=== PATIENT | male | born 1975 | race Two or more races ===

== ENCOUNTER 2020-08-18 13:35 | Inpatient (IN) | payer MEDICAID, OTHER ==
[~2020-08-18] VITALS: Ht 175.3 cm; Wt 104.3 kg
[2020-08-18 14:17] LABS: Urine Bacteria NONE SEEN /hpf (None Seen); Urine Blood Negative /uL (Negative); Urine Specific Gravity 1.035 (1.001-1.035); Urine WBC <1 /hpf (0 - 3)
[2020-08-18 14:47] LABS: Basophils # (auto) 0 10 ^3/uL (0-0.2); Basophils % (auto) 0.5 % (0.0-2.0); Eosinophils # (auto) 0.1 10 ^3/uL (0-0.8); Eosinophils % (auto) 0.8 % (0.0-7.0); Hematocrit 41.2 % (41.0-53.0); Hemoglobin 14.4 g/dL (13.5-17.5); Lymphocytes # (auto) 1.5 10 ^3/uL (0.4-5.4); Lymphocytes % (auto) 21.8 % (10.0-50.0); Mean Corpuscular Hgb Conc. 34.9 g/dL (32.0-36.0); Mean Corpuscular Volume 86.1 fL (80.0-100.0); Monocytes # (auto) 0.5 10 ^3/uL (0-1.3); Monocytes % (auto) 7.1 % (0.0-12.0); Neutrophils # (auto) 4.7 10 ^3/uL (1.6-8.6); Neutrophils % (auto) 69.8 % (37.0-80.0); Nucleated Red Blood Cells % 0.1 %; Platelet Count (auto) 160 10^3/uL (140-450); Red Blood Cells 4.79 10^6/uL (4.5-5.90); Red Cell Distribution Width 14.4 % (11.8-14.3); White Blood Cell 6.8 10^3/uL (4.4-10.8)
[2020-08-18 15:09] LABS: INR 1.02 (0.9-1.15); Partial Thromboplastin Time 25.6 sec (23.0-31.2)
[2020-08-18 15:21] LABS: Albumin 3.4 g/dL (3.4-5.0); Anion Gap 7 (5-15); Blood Urea Nitrogen 9 mg/dL (7-18); Calcium 8.5 mg/dL (8.5-10.1); Carbon Dioxide 26 mmol/L (21-32); Chloride 103 mmol/L (98-107); Glucose 318 mg/dL (74-106); Potassium 4.1 mmol/L (3.5-5.1); Sodium 136 mmol/L (136-145)
[2020-08-18 15:27] LABS: Alanine Aminotransferase 35 U/L (16-61); Alkaline Phosphatase 180 U/L (45-117); Aspartate Aminotransferase 11 U/L (15-37); BUN/Creatinine Ratio 11.7; Bilirubin, Total 0.6 mg/dL (0.2-1.0); GFR African American 141 mL/min; GFR Non-African American 117 mL/min; Total Protein 7.7 g/dL (6.4-8.2)
[2020-08-18] MEDS ORDERED: NITROGLYCERIN 0.4 MG SL TAB SL PRN (21:00)
[2020-08-18] MEDS ORDERED: DEXTROSE (50%) 50ML SYRG IV PRN (21:00)
[2020-08-18] MEDS ORDERED: ONDANSETRON HCL 4 MG/2 ML VIAL IV PRN (21:00)
[2020-08-18] MEDS ORDERED: TEMAZEPAM 15 MG CAP PO PRN (21:00)
[2020-08-18] MEDS ORDERED: ACETAMINOPHEN 325 MG TAB PO PRN (21:00)
[2020-08-18 21:30] LABS: Magnesium 2.1 mg/dL (1.6-2.6)
[2020-08-18] MEDS ORDERED: TICAGRELOR 90 MG TAB PO SCH (22:00)
[2020-08-18] MEDS ORDERED: FAMOTIDINE 20 MG TAB PO SCH (22:00)
[2020-08-18] MEDS ORDERED: InsuLIN REG 1unit/0.01ml Soln (100units/ml) SC SCH (22:00)
[2020-08-18] MEDS ORDERED: ACCU-CHEK COMFORT CURVE STRIP VI SCH (22:00)
[2020-08-18] MEDS ORDERED: ATORVASTATIN 20 MG TAB PO SCH (22:00)
[2020-08-19 01:30] VITALS: BP 129/76
[2020-08-19] MEDS: MORPHINE SULF INJ 2 MG/ML SYRINGE 1ML IV PRN ×2 (01:48→04:38)
[2020-08-19 04:00] VITALS: BP 135/82
[2020-08-19] MEDS ORDERED: ASPirin 81 mg TAB PO SCH (10:00)
[2020-08-19] MEDS ORDERED: LISINOPRIL 20 MG TAB PO SCH (10:00)
== END 2020-08-19 07:00 | disposition left against medical advice (07) | DRG 204 ==
LOC: ER 13:35 → TELE 13:36
PROVIDERS: ADMIT Nurse Practitioner; ATTEND Internal Medicine
DX: R55 Syncope and collapse (principal); I25.110 Atherosclerotic heart disease of native coronary artery with unstable angina pectoris; G45.9 Transient cerebral ischemic attack, unspecified; E11.22 Type 2 diabetes mellitus with diabetic chronic kidney disease; E66.9 Obesity, unspecified; Z68.34 Body mass index [BMI] 34.0-34.9, adult; E78.5 Hyperlipidemia, unspecified; I12.9 Hypertensive chronic kidney disease with stage 1 through stage 4 chronic kidney disease, or unspecified chronic kidney disease; N18.9 Chronic kidney disease, unspecified; Z82.49 Family history of ischemic heart disease and other diseases of the circulatory system; Z83.3 Family history of diabetes mellitus; Z86.73 Personal history of transient ischemic attack (TIA), and cerebral infarction without residual deficits; Z95.1 Presence of aortocoronary bypass graft; Z87.891 Personal history of nicotine dependence
CPT/HCPCS: 36415; 70450; 71045; 80053; 81001; 82962; 83735; 83880; 84443; 84484; 85025; 85610; 85730; 93005; 93886; 96374; 96375; G0378; J1815; J2405

== ENCOUNTER 2020-10-22 13:48 | Emergency (ER) | payer MEDICAID ==
[~2020-10-22] VITALS: Ht 175.3 cm; Wt 104.3 kg
[2020-10-22] MEDS ORDERED: ASPirin 81 mg TAB PO ONE (14:00)
[2020-10-22 14:18] LABS: Basophils # (auto) 0.1 10 ^3/uL (0-0.2); Basophils % (auto) 0.9 % (0.0-2.0); Eosinophils # (auto) 0 10 ^3/uL (0-0.8); Eosinophils % (auto) 0.3 % (0.0-7.0); Hematocrit 43.5 % (41.0-53.0); Hemoglobin 14.9 g/dL (13.5-17.5); Lymphocytes # (auto) 1.7 10 ^3/uL (0.4-5.4); Lymphocytes % (auto) 19.6 % (10.0-50.0); Mean Corpuscular Hemoglobin 29.9 pg (28.0-32.0); Mean Corpuscular Hgb Conc. 34.4 g/dL (32.0-36.0); Mean Corpuscular Volume 86.9 fL (80.0-100.0); Monocytes # (auto) 0.5 10 ^3/uL (0-1.3); Monocytes % (auto) 5.9 % (0.0-12.0); Neutrophils # (auto) 6.5 10 ^3/uL (1.6-8.6); Neutrophils % (auto) 73.3 % (37.0-80.0); Nucleated Red Blood Cells % 0.1 %; Platelet Count (auto) 163 10^3/uL (140-450); Red Cell Distribution Width 15.1 % (11.8-14.3); White Blood Cell 8.8 10^3/uL (4.4-10.8)
[2020-10-22 14:35] LABS: Albumin 3.6 g/dL (3.4-5.0); Anion Gap 7 (5-15); Blood Urea Nitrogen 8 mg/dL (7-18); Carbon Dioxide 24 mmol/L (21-32); Chloride 105 mmol/L (98-107); Glucose 346 mg/dL (74-106); Magnesium 2.1 mg/dL (1.6-2.6); Potassium 3.8 mmol/L (3.5-5.1); Sodium 136 mmol/L (136-145)
[2020-10-22 14:42] LABS: Alanine Aminotransferase 44 U/L (16-61); Alkaline Phosphatase 162 U/L (45-117); Aspartate Aminotransferase 20 U/L (15-37); BUN/Creatinine Ratio 10.7; Bilirubin, Total 0.8 mg/dL (0.2-1.0); GFR African American 145 mL/min; GFR Non-African American 120 mL/min
[2020-10-22] MEDS ORDERED: KETOROLAC TROMETH 30 MG/ML 1ML VIAL IV ONE (14:45)
[2020-10-22 16:00] VITALS: BP 129/89
[2020-10-22] MEDS ORDERED: ONDANSETRON HCL 4 MG/2 ML VIAL IV ONE (16:15)
== END 2020-10-22 17:26 | disposition left against medical advice (07) ==
LOC: ER 13:48
DX: J18.9 Pneumonia, unspecified organism (principal); E11.65 Type 2 diabetes mellitus with hyperglycemia; E78.5 Hyperlipidemia, unspecified; E11.22 Type 2 diabetes mellitus with diabetic chronic kidney disease; I12.9 Hypertensive chronic kidney disease with stage 1 through stage 4 chronic kidney disease, or unspecified chronic kidney disease; N18.9 Chronic kidney disease, unspecified; Z87.891 Personal history of nicotine dependence; Z86.73 Personal history of transient ischemic attack (TIA), and cerebral infarction without residual deficits; Z95.1 Presence of aortocoronary bypass graft
CPT/HCPCS: 36415; 71045; 80053; 83735; 83880; 84484; 85025; 93005; 96374; 96375; 99285; J1885; J2405

== ENCOUNTER 2020-10-24 00:11 | Inpatient (IN) | payer MEDICAID ==
[~2020-10-24] VITALS: Ht 175.3 cm; Wt 110.0 kg
[2020-10-24] MEDS ORDERED: ONDANSETRON HCL 4 MG/2 ML VIAL IV ONE ×2 (01:15→02:45)
[2020-10-24] MEDS ORDERED: MORPHINE SULFATE 4 MG/ML SYR/VIAL IV ONE (01:15)
[2020-10-24 01:36] LABS: Basophils # (auto) 0 10 ^3/uL (0-0.2); Basophils % (auto) 0.2 % (0.0-2.0); Eosinophils # (auto) 0.1 10 ^3/uL (0-0.8); Eosinophils % (auto) 0.7 % (0.0-7.0); Hematocrit 41.3 % (41.0-53.0); Hemoglobin 14.2 g/dL (13.5-17.5); Lymphocytes # (auto) 2.5 10 ^3/uL (0.4-5.4); Lymphocytes % (auto) 30.8 % (10.0-50.0); Mean Corpuscular Hemoglobin 30.3 pg (28.0-32.0); Mean Corpuscular Hgb Conc. 34.4 g/dL (32.0-36.0); Monocytes # (auto) 0.5 10 ^3/uL (0-1.3); Monocytes % (auto) 6.4 % (0.0-12.0); Neutrophils % (auto) 61.9 % (37.0-80.0); Nucleated Red Blood Cells % 0.2 %; Platelet Count (auto) 143 10^3/uL (140-450); Red Cell Distribution Width 15.2 % (11.8-14.3); White Blood Cell 8.1 10^3/uL (4.4-10.8)
[2020-10-24] MEDS ORDERED: InsuLIN REG 1unit/0.01ml Soln (100units/ml) IV ONE (01:45)
[2020-10-24 01:47] LABS: Partial Thromboplastin Time 24.2 sec (23.0-31.2)
[2020-10-24 01:54] LABS: Alanine Aminotransferase 41 U/L (16-61); Albumin 3.6 g/dL (3.4-5.0); Anion Gap 11 (5-15); Aspartate Aminotransferase 19 U/L (15-37); BUN/Creatinine Ratio 11.5; Blood Urea Nitrogen 9 mg/dL (7-18); Calcium 8.3 mg/dL (8.5-10.1); Carbon Dioxide 23 mmol/L (21-32); Chloride 101 mmol/L (98-107); GFR African American 139 mL/min; GFR Non-African American 115 mL/min; Magnesium 2.1 mg/dL (1.6-2.6); Potassium 3.9 mmol/L (3.5-5.1); Sodium 135 mmol/L (136-145)
[2020-10-24 02:03] LABS: Alkaline Phosphatase 194 U/L (45-117); Bilirubin, Total 0.4 mg/dL (0.2-1.0); Total Protein 7.7 g/dL (6.4-8.2)
[2020-10-24 02:09] LABS: Glucose 438 mg/dL (74-106)
[2020-10-24] MEDS ORDERED: MORPHINE SULF INJ 2 MG/ML SYRINGE 1ML IV ONE (02:45)
[2020-10-24] MEDS ORDERED: hydrALAZINE HCL 20 MG/ML VL IV PRN (05:00)
[2020-10-24] MEDS ORDERED: DEXTROSE (50%) 50ML SYRG IV PRN (05:00)
[2020-10-24] MEDS ORDERED: ACETAMINOPHEN 325 MG TAB PO PRN (05:15)
[2020-10-24] MEDS ORDERED: NITROGLYCERIN 0.4 MG SL TAB SL PRN (05:15)
[2020-10-24] MEDS ORDERED: DOCUSATE SOD 100 MG CAP PO PRN (05:15)
[2020-10-24] MEDS: GABAPENTIN 300 MG CAP PO SCH ×3 (05:37→21:50)
[2020-10-24] MEDS: HYDROcodone-ACET 5/325MG TAB PO PRN ×4 (05:53→21:52)
[2020-10-24 06:19] LABS: Basophils # (auto) 0.1 10 ^3/uL (0-0.2); Basophils % (auto) 0.7 % (0.0-2.0); Eosinophils # (auto) 0.1 10 ^3/uL (0-0.8); Eosinophils % (auto) 0.8 % (0.0-7.0); Hematocrit 40.7 % (41.0-53.0); Hemoglobin 14.1 g/dL (13.5-17.5); Lymphocytes # (auto) 2.6 10 ^3/uL (0.4-5.4); Lymphocytes % (auto) 31.5 % (10.0-50.0); Mean Corpuscular Hgb Conc. 34.6 g/dL (32.0-36.0); Mean Corpuscular Volume 86.9 fL (80.0-100.0); Monocytes # (auto) 0.6 10 ^3/uL (0-1.3); Monocytes % (auto) 7.5 % (0.0-12.0); Neutrophils % (auto) 59.5 % (37.0-80.0); Nucleated Red Blood Cells % 0.1 %; Platelet Count (auto) 132 10^3/uL (140-450); Red Blood Cells 4.69 10^6/uL (4.5-5.90); White Blood Cell 8.4 10^3/uL (4.4-10.8)
[2020-10-24 06:27] LABS: Alanine Aminotransferase 39 U/L (16-61); Albumin 3.4 g/dL (3.4-5.0); Anion Gap 10 (5-15); Aspartate Aminotransferase 15 U/L (15-37); Blood Urea Nitrogen 7 mg/dL (7-18); Carbon Dioxide 22 mmol/L (21-32); Chloride 105 mmol/L (98-107); GFR African American 158 mL/min; GFR Non-African American 130 mL/min; Glucose 358 mg/dL (74-106); Potassium 3.9 mmol/L (3.5-5.1); Sodium 137 mmol/L (136-145)
[2020-10-24 06:30] LABS: Alkaline Phosphatase 186 U/L (45-117); Bilirubin, Total 0.3 mg/dL (0.2-1.0); Total Protein 7.5 g/dL (6.4-8.2)
[2020-10-24] MEDS ORDERED: INSULIN LANTUS (GLARGINE) 1 /0.01ml (100units/ml) SC SCH (07:00)
[2020-10-24] MEDS: ACCU-CHEK COMFORT CURVE STRIP VI SCH ×4 (08:36→21:50)
[2020-10-24] MEDS: InsuLIN REG 1unit/0.01ml Soln (100units/ml) SC SCH ×4 (08:37→21:52)
[2020-10-24] MEDS: MORPHINE SULF INJ 2 MG/ML SYRINGE 1ML IV PRN ×2 (08:40→13:45)
[2020-10-24] MEDS: ONDANSETRON HCL 4 MG/2 ML VIAL IV PRN ×2 (08:41→13:45)
[2020-10-24] MEDS ORDERED: ZINC SULFATE 220mg CAP or TAB PO SCH (10:00)
[2020-10-24] MEDS ORDERED: METOPROLOL TARTRATE 50 MG TAB PO SCH (10:00)
[2020-10-24] MEDS ORDERED: ASCORBIC ACID 500 MG TAB PO SCH (10:00)
[2020-10-24] MEDS ORDERED: ASPirin 81 mg TAB PO SCH (10:00)
[2020-10-24] MEDS: ISOSORBIDE MONONITRATE ER 60 MG TAB PO SCH (10:59)
[2020-10-24] MEDS: MULTIPLE VITAMIN TAB PO SCH (11:00)
[2020-10-24] MEDS: FAMOTIDINE 20 MG TAB PO SCH ×2 (11:00→21:50)
[2020-10-24] MEDS: ENOXAPARIN SOD 40 MG/0.4 ML SYRINGE SC SCH (11:01)
[2020-10-24] MEDS ORDERED: INSULIN LANTUS (GLARGINE) 1 /0.01ml (100units/ml) SC ONE (14:30)
[2020-10-24] MEDS: TICAGRELOR 90 MG TAB PO SCH ×2 (16:07→22:08)
[2020-10-24 17:00] VITALS: BP 111/65
[2020-10-24] MEDS: buPROPion HCL 75 MG TAB PO SCH (19:04)
[2020-10-24] MEDS: MORPHINE SULFATE 4 MG/ML SYR/VIAL IV PRN ×2 (19:04→23:16)
[2020-10-24 20:15] LABS: Alcohol, Urine < 3.0 mg/dL (0-10); Amphetamine Screen, Urine NEGATIVE (NEGATIVE); Barbiturate Scree,Urine NEGATIVE (NEGATIVE); Benzodiazephine Screen, Urine NEGATIVE (NEGATIVE); Cannabinoid Screen, Urine NEGATIVE (NEGATIVE); Cocaine Screen, Urine NEGATIVE (NEGATIVE); Opiate Scree,Urine NEGATIVE (NEGATIVE); Phencyclidine Screen, Urine NEGATIVE (NEGATIVE)
[2020-10-24] MEDS: INSULIN LANTUS (GLARGINE) 1 /0.01ml (100units/ml) SC SCH (21:50)
[2020-10-24] MEDS: busPIRone HCL 10 MG TAB PO SCH (21:50)
[2020-10-24 22:00] VITALS: BP 114/74
[2020-10-24] MEDS ORDERED: ATORVASTATIN 20 MG TAB PO SCH (22:00)
[2020-10-24] MEDS: METOPROLOL TARTRATE 50 MG TAB PO SCH (22:08)
[2020-10-24] MEDS ORDERED: ASPI-543 PO (23:22)
[2020-10-24] MEDS ORDERED: ATO40T PO (23:24)
[2020-10-24] MEDS ORDERED: BUPR150T8 PO (23:26)
[2020-10-24] MEDS ORDERED: BUSP10TA90 PO (23:29)
[2020-10-24] MEDS ORDERED: HYDR-4798 PO (23:29)
[2020-10-24] MEDS ORDERED: INSLANTI SC ×2 (23:37)
[2020-10-24] MEDS ORDERED: INSU1INJ15 SC (23:37)
[2020-10-24] MEDS ORDERED: ZOLP10TA PO (23:37)
[2020-10-24] MEDS ORDERED: TICA90TA PO (23:37)
[2020-10-24] MEDS ORDERED: METO25TA93 PO (23:37)
[2020-10-24] MEDS ORDERED: LISI-648 PO (23:37)
[2020-10-25 05:00] VITALS: BP 127/75
[2020-10-25] MEDS: MORPHINE SULFATE 4 MG/ML SYR/VIAL IV PRN ×2 (05:23→09:42)
[2020-10-25] MEDS: GABAPENTIN 300 MG CAP PO SCH ×2 (05:23→14:17)
[2020-10-25] MEDS: buPROPion HCL 75 MG TAB PO SCH ×2 (06:09→18:06)
[2020-10-25] MEDS: ONDANSETRON HCL 4 MG/2 ML VIAL IV PRN ×2 (06:09→11:39)
[2020-10-25] MEDS: INSULIN LANTUS (GLARGINE) 1 /0.01ml (100units/ml) SC SCH (06:10)
[2020-10-25] MEDS: ACCU-CHEK COMFORT CURVE STRIP VI SCH ×3 (06:10→18:06)
[2020-10-25] MEDS: InsuLIN REG 1unit/0.01ml Soln (100units/ml) SC SCH ×3 (06:11→18:07)
[2020-10-25] MEDS: HYDROcodone-ACET 5/325MG TAB PO PRN ×3 (06:47→16:51)
[2020-10-25 07:16] LABS: Basophils # (auto) 0 10 ^3/uL (0-0.2); Basophils % (auto) 0.2 % (0.0-2.0); Eosinophils # (auto) 0.1 10 ^3/uL (0-0.8); Eosinophils % (auto) 0.9 % (0.0-7.0); Hematocrit 39.4 % (41.0-53.0); Hemoglobin 13.7 g/dL (13.5-17.5); Lymphocytes % (auto) 27.6 % (10.0-50.0); Mean Corpuscular Hemoglobin 30.2 pg (28.0-32.0); Mean Corpuscular Hgb Conc. 34.6 g/dL (32.0-36.0); Mean Corpuscular Volume 87.2 fL (80.0-100.0); Monocytes # (auto) 0.6 10 ^3/uL (0-1.3); Neutrophils # (auto) 4.5 10 ^3/uL (1.6-8.6); Neutrophils % (auto) 63.3 % (37.0-80.0); Nucleated Red Blood Cells % 0.1 %; Platelet Count (auto) 135 10^3/uL (140-450); Red Blood Cells 4.52 10^6/uL (4.5-5.90); Red Cell Distribution Width 15.1 % (11.8-14.3); White Blood Cell 7.1 10^3/uL (4.4-10.8)
[2020-10-25 07:35] LABS: Albumin 3.1 g/dL (3.4-5.0); Potassium 3.6 mmol/L (3.5-5.1)
[2020-10-25 07:37] LABS: BUN/Creatinine Ratio 15.6
[2020-10-25 07:40] LABS: Bilirubin, Total 0.6 mg/dL (0.2-1.0); Total Protein 6.7 g/dL (6.4-8.2)
[2020-10-25] MEDS: busPIRone HCL 10 MG TAB PO SCH (09:58)
[2020-10-25] MEDS: MULTIPLE VITAMIN TAB PO SCH (09:59)
[2020-10-25] MEDS: FAMOTIDINE 20 MG TAB PO SCH (09:59)
[2020-10-25] MEDS: ISOSORBIDE MONONITRATE ER 60 MG TAB PO SCH (09:59)
[2020-10-25] MEDS ORDERED: LISINOPRIL 10 MG TAB PO SCH (10:00)
[2020-10-25] MEDS: METOPROLOL TARTRATE 50 MG TAB PO SCH (10:00)
[2020-10-25] MEDS ORDERED: ASPirin 81 mg TAB PO SCH (10:00)
[2020-10-25] MEDS: ENOXAPARIN SOD 40 MG/0.4 ML SYRINGE SC SCH (10:00)
[2020-10-25] MEDS: TICAGRELOR 90 MG TAB PO SCH (10:37)
[2020-10-25] MEDS ORDERED: INSU1INJ19 SC (11:34)
[2020-10-25] MEDS ORDERED: INSREG3 SC (11:34)
[2020-10-25] MEDS ORDERED: BUPR300T28 PO (11:34)
[2020-10-25] MEDS ORDERED: ATOR-47 PO (11:35)
[2020-10-25] MEDS ORDERED: MORPHINE SULF INJ 2 MG/ML SYRINGE 1ML IV PRN (11:45)
[2020-10-25 13:00] VITALS: BP 103/60
[2020-10-25 17:00] VITALS: BP 100/59
== END 2020-10-25 19:00 | disposition left against medical advice (07) | DRG 198 ==
LOC: ER 00:12 → TELE 00:13 → TELE-WESTW 16:52
PROVIDERS: ADMIT Nurse Practitioner Family; ATTEND Internal Medicine
DX: R07.89 Other chest pain (principal); E11.40 Type 2 diabetes mellitus with diabetic neuropathy, unspecified; E11.65 Type 2 diabetes mellitus with hyperglycemia; Z20.822 Contact with and (suspected) exposure to COVID-19; Z53.29 Procedure and treatment not carried out because of patient's decision for other reasons; E11.22 Type 2 diabetes mellitus with diabetic chronic kidney disease; E78.5 Hyperlipidemia, unspecified; N18.9 Chronic kidney disease, unspecified; F32.9 Major depressive disorder, single episode, unspecified; F41.9 Anxiety disorder, unspecified; I12.9 Hypertensive chronic kidney disease with stage 1 through stage 4 chronic kidney disease, or unspecified chronic kidney disease; I25.10 Atherosclerotic heart disease of native coronary artery without angina pectoris; I25.2 Old myocardial infarction; Z82.49 Family history of ischemic heart disease and other diseases of the circulatory system; Z83.3 Family history of diabetes mellitus; Z87.891 Personal history of nicotine dependence; Z95.1 Presence of aortocoronary bypass graft; Z95.5 Presence of coronary angioplasty implant and graft; Z91.14 Patient's other noncompliance with medication regimen; I69.30 Unspecified sequelae of cerebral infarction
CPT/HCPCS: 36415; 71045; 80053; 80307; 82962; 83036; 83735; 83880; 84484; 85025; 85610; 85730; 87081; 87426; 93005; 93306; 96372; 96374; 96375; 96376; G0378; J1815; J2405

== ENCOUNTER 2020-11-14 13:17 | Inpatient (IN) | payer MEDICAID ==
[~2020-11-14] VITALS: Ht 175.3 cm; Wt 106.8 kg
[~2020-11-14 13:17] MED LIST: ASPI-543 PO; ATOR-47 PO; BUPR300T28 PO; BUSP10TA90 PO; HYDR-4798 PO; INSREG3 SC; INSU1INJ19 SC; LISI-648 PO; METO25TA93 PO; TICA90TA PO; ZOLP10TA PO
[2020-11-14 14:16] LABS: Basophils # (auto) 0 10 ^3/uL (0-0.2); Basophils % (auto) 0.6 % (0.0-2.0); Eosinophils # (auto) 0 10 ^3/uL (0-0.8); Eosinophils % (auto) 0.6 % (0.0-7.0); Hematocrit 45.2 % (41.0-53.0); Hemoglobin 15.4 g/dL (13.5-17.5); Lymphocytes # (auto) 1.9 10 ^3/uL (0.4-5.4); Lymphocytes % (auto) 25.3 % (10.0-50.0); Mean Corpuscular Hemoglobin 30.1 pg (28.0-32.0); Mean Corpuscular Hgb Conc. 34.1 g/dL (32.0-36.0); Monocytes # (auto) 0.5 10 ^3/uL (0-1.3); Monocytes % (auto) 6.7 % (0.0-12.0); Neutrophils # (auto) 5.1 10 ^3/uL (1.6-8.6); Neutrophils % (auto) 66.8 % (37.0-80.0); Platelet Count (auto) 174 10^3/uL (140-450); Red Blood Cells 5.13 10^6/uL (4.5-5.90); Red Cell Distribution Width 14.5 % (11.8-14.3); White Blood Cell 7.6 10^3/uL (4.4-10.8)
[2020-11-14 14:30] LABS: Urine Bacteria NONE SEEN /hpf (None Seen); Urine Blood Negative /uL (Negative); Urine Specific Gravity 1.046 (1.001-1.035); Urine WBC 5 /hpf (0 - 3)
[2020-11-14] MEDS ORDERED: ASPirin-EC 81 mg tab PO ONE (14:30)
[2020-11-14] MEDS ORDERED: MORPHINE SULF INJ 2 MG/ML SYRINGE 1ML IV ONE ×2 (14:30→16:30)
[2020-11-14] MEDS ORDERED: ONDANSETRON HCL 4 MG/2 ML VIAL IV ONE ×2 (14:30→16:30)
[2020-11-14] MEDS ORDERED: cefTRIAXone 1GM/50ML D5W 50 ML IV ONE (14:30)
[2020-11-14 14:35] LABS: INR 1.03 (0.9-1.15); Partial Thromboplastin Time 25.6 sec (23.0-31.2)
[2020-11-14 15:03] LABS: Anion Gap 8 (5-15); Blood Urea Nitrogen 11 mg/dL (7-18); Calcium 8.9 mg/dL (8.5-10.1); Carbon Dioxide 26 mmol/L (21-32); Chloride 102 mmol/L (98-107); Glucose 307 mg/dL (74-106); Magnesium 2.2 mg/dL (1.6-2.6); Potassium 3.7 mmol/L (3.5-5.1); Sodium 136 mmol/L (136-145)
[2020-11-14 15:06] LABS: BUN/Creatinine Ratio 17.5; GFR African American 178 mL/min; GFR Non-African American 147 mL/min
[2020-11-14 15:14] LABS: Alanine Aminotransferase 60 U/L (16-61); Alkaline Phosphatase 170 U/L (45-117); Aspartate Aminotransferase 24 U/L (15-37); Bilirubin, Total 0.7 mg/dL (0.2-1.0); Total Protein 8.5 g/dL (6.4-8.2)
[2020-11-14] MEDS ORDERED: ALBUTEROL SULF 2.5 MG/0.5ML(0.5%) NEB SOLN NEB PRN (17:00)
[2020-11-14 18:31] VITALS: BP 145/90
[2020-11-14] MEDS ORDERED: NITROGLYCERIN 0.4 MG SL TAB SL PRN (21:15)
[2020-11-14] MEDS ORDERED: ONDANSETRON HCL 4 MG/2 ML VIAL IV PRN (21:15)
[2020-11-14] MEDS ORDERED: ACETAMINOPHEN 325 MG TAB PO PRN (21:15)
[2020-11-14] MEDS ORDERED: DEXTROSE (50%) 50ML SYRG IV PRN (21:15)
[2020-11-14] MEDS: MORPHINE SULF INJ 2 MG/ML SYRINGE 1ML IV PRN (21:26)
[2020-11-14] MEDS: busPIRone HCL 10 MG TAB PO SCH (23:06)
[2020-11-14] MEDS: ATORVASTATIN 20 MG TAB PO SCH (23:06)
[2020-11-14] MEDS: FAMOTIDINE 20 MG TAB PO SCH (23:06)
[2020-11-14] MEDS: TICAGRELOR 90 MG TAB PO SCH (23:06)
[2020-11-14 23:40] VITALS: BP 135/84
[2020-11-15] MEDS: InsuLIN REG 1unit/0.01ml Soln (100units/ml) SC SCH ×5 (00:16→23:01)
[2020-11-15] MEDS: ACCU-CHEK COMFORT CURVE STRIP VI SCH ×5 (00:16→23:00)
[2020-11-15] MEDS ORDERED: HYDROcodone-ACET 5/325MG TAB PO PRN (01:15)
[2020-11-15] MEDS: TEMAZEPAM 15 MG CAP PO PRN ×2 (01:21→22:52)
[2020-11-15] MEDS: MORPHINE SULF INJ 2 MG/ML SYRINGE 1ML IV PRN ×4 (01:55→20:00)
[2020-11-15] MEDS ORDERED: BUPR150T8 PO (03:06)
[2020-11-15] MEDS ORDERED: GABA300C10 PO (03:06)
[2020-11-15 05:13] VITALS: BP 123/71
[2020-11-15] MEDS: buPROPion HCL 75 MG TAB PO SCH ×2 (06:14→18:22)
[2020-11-15 08:26] LABS: Basophils # (auto) 0 10 ^3/uL (0-0.2); Basophils % (auto) 0.3 % (0.0-2.0); Eosinophils # (auto) 0.1 10 ^3/uL (0-0.8); Eosinophils % (auto) 0.8 % (0.0-7.0); Hematocrit 42.8 % (41.0-53.0); Hemoglobin 14.9 g/dL (13.5-17.5); Lymphocytes # (auto) 2.4 10 ^3/uL (0.4-5.4); Lymphocytes % (auto) 33.4 % (10.0-50.0); Mean Corpuscular Hemoglobin 30.7 pg (28.0-32.0); Mean Corpuscular Hgb Conc. 34.8 g/dL (32.0-36.0); Mean Corpuscular Volume 88.1 fL (80.0-100.0); Monocytes # (auto) 0.7 10 ^3/uL (0-1.3); Monocytes % (auto) 9.7 % (0.0-12.0); Neutrophils # (auto) 4.1 10 ^3/uL (1.6-8.6); Neutrophils % (auto) 55.8 % (37.0-80.0); Nucleated Red Blood Cells % 0.2 %; Platelet Count (auto) 149 10^3/uL (140-450); Red Blood Cells 4.85 10^6/uL (4.5-5.90); Red Cell Distribution Width 14.6 % (11.8-14.3); White Blood Cell 7.3 10^3/uL (4.4-10.8)
[2020-11-15 08:50] LABS: Chloride 104 mmol/L (98-107); Potassium 3.6 mmol/L (3.5-5.1); Sodium 139 mmol/L (136-145)
[2020-11-15 09:00] VITALS: BP 121/73
[2020-11-15 09:02] LABS: Anion Gap 11 (5-15); BUN/Creatinine Ratio 20.4; Blood Urea Nitrogen 11 mg/dL (7-18); Calcium 8.6 mg/dL (8.5-10.1); Carbon Dioxide 24 mmol/L (21-32); GFR African American 213 mL/min; GFR Non-African American 176 mL/min; Glucose 240 mg/dL (74-106)
[2020-11-15] MEDS: ASPirin 81 mg TAB PO SCH (09:29)
[2020-11-15] MEDS: busPIRone HCL 10 MG TAB PO SCH ×2 (09:30→21:22)
[2020-11-15] MEDS: FAMOTIDINE 20 MG TAB PO SCH ×2 (09:31→21:22)
[2020-11-15] MEDS: LISINOPRIL 10 MG TAB PO SCH (09:32)
[2020-11-15] MEDS: ENOXAPARIN SOD 40 MG/0.4 ML SYRINGE SC SCH (09:33)
[2020-11-15] MEDS: METOPROLOL SUCCINATE XL 50 MG TAB PO SCH (09:35)
[2020-11-15] MEDS: TICAGRELOR 90 MG TAB PO SCH ×2 (10:45→21:21)
[2020-11-15] MEDS ORDERED: LORazepam 2MG/ML-1ML VIAL IV ONE (12:30)
[2020-11-15 13:00] VITALS: BP 119/76
[2020-11-15] MEDS: HYDROcodone-ACET 10/325MG TAB PO PRN ×2 (15:43→22:52)
[2020-11-15 16:56] VITALS: BP 103/67
[2020-11-15] MEDS: INSULIN LANTUS (GLARGINE) 1 /0.01ml (100units/ml) SC SCH (18:30)
[2020-11-15] MEDS: ATORVASTATIN 20 MG TAB PO SCH (21:21)
[2020-11-15] MEDS: MIRTAZAPINE 30 MG TAB PO SCH (21:22)
[2020-11-15 22:00] VITALS: BP 108/67
[2020-11-16] VITALS (7 sets, daily range): BP systolic 92–119; BP diastolic 56–77
[2020-11-16] MEDS: MORPHINE SULF INJ 2 MG/ML SYRINGE 1ML IV PRN ×3 (00:14→20:28)
[2020-11-16] MEDS: ACCU-CHEK COMFORT CURVE STRIP VI SCH ×4 (05:58→22:24)
[2020-11-16] MEDS: buPROPion HCL 75 MG TAB PO SCH ×2 (05:58→19:13)
[2020-11-16] MEDS: InsuLIN REG 1unit/0.01ml Soln (100units/ml) SC SCH ×4 (06:02→23:33)
[2020-11-16 06:41] LABS: Basophils # (auto) 0 10 ^3/uL (0-0.2); Basophils % (auto) 0.3 % (0.0-2.0); Eosinophils # (auto) 0.1 10 ^3/uL (0-0.8); Eosinophils % (auto) 1.1 % (0.0-7.0); Hematocrit 40.6 % (41.0-53.0); Hemoglobin 14.2 g/dL (13.5-17.5); Lymphocytes # (auto) 3.1 10 ^3/uL (0.4-5.4); Lymphocytes % (auto) 39.7 % (10.0-50.0); Mean Corpuscular Hemoglobin 30.9 pg (28.0-32.0); Mean Corpuscular Hgb Conc. 34.9 g/dL (32.0-36.0); Mean Corpuscular Volume 88.4 fL (80.0-100.0); Monocytes # (auto) 0.7 10 ^3/uL (0-1.3); Monocytes % (auto) 9.5 % (0.0-12.0); Neutrophils # (auto) 3.8 10 ^3/uL (1.6-8.6); Neutrophils % (auto) 49.4 % (37.0-80.0); Nucleated Red Blood Cells % 0.1 %; Platelet Count (auto) 151 10^3/uL (140-450); Red Blood Cells 4.59 10^6/uL (4.5-5.90); Red Cell Distribution Width 14.8 % (11.8-14.3); White Blood Cell 7.7 10^3/uL (4.4-10.8)
[2020-11-16 07:04] LABS: Potassium 3.5 mmol/L (3.5-5.1)
[2020-11-16 07:41] LABS: BUN/Creatinine Ratio 20.6; Calcium 8.4 mg/dL (8.5-10.1)
[2020-11-16] MEDS ORDERED: ADENOSINE 89 MG in GIVE UN-DILUTED 0 ML IV STA (08:14)
[2020-11-16] MEDS: busPIRone HCL 10 MG TAB PO SCH ×2 (10:00→22:00)
[2020-11-16] MEDS: ASPirin 81 mg TAB PO SCH (10:00)
[2020-11-16] MEDS: FAMOTIDINE 20 MG TAB PO SCH ×2 (10:32→22:24)
[2020-11-16] MEDS: METOPROLOL SUCCINATE XL 50 MG TAB PO SCH (10:32)
[2020-11-16] MEDS: HYDROcodone-ACET 10/325MG TAB PO PRN ×3 (10:33→23:27)
[2020-11-16] MEDS: TICAGRELOR 90 MG TAB PO SCH ×2 (10:33→22:24)
[2020-11-16] MEDS: ENOXAPARIN SOD 40 MG/0.4 ML SYRINGE SC SCH (10:34)
[2020-11-16] MEDS: LISINOPRIL 10 MG TAB PO SCH (10:34)
[2020-11-16] MEDS: INSULIN LANTUS (GLARGINE) 1 /0.01ml (100units/ml) SC SCH ×2 (12:29→22:00)
[2020-11-16] MEDS ORDERED: MIR30T PO (14:14)
[2020-11-16] MEDS ORDERED: INSULIN LANTUS (GLARGINE) 1 /0.01ml (100units/ml) SC ONE (14:15)
[2020-11-16] MEDS: ATORVASTATIN 20 MG TAB PO SCH (22:23)
[2020-11-16] MEDS: MIRTAZAPINE 30 MG TAB PO SCH (22:24)
[2020-11-16] MEDS: TEMAZEPAM 15 MG CAP PO PRN (23:26)
[2020-11-17] MEDS: MORPHINE SULF INJ 2 MG/ML SYRINGE 1ML IV PRN (00:39)
[2020-11-17 05:34] VITALS: BP 120/78
[2020-11-17] MEDS: buPROPion HCL 75 MG TAB PO SCH (06:08)
[2020-11-17] MEDS: ACCU-CHEK COMFORT CURVE STRIP VI SCH (06:08)
[2020-11-17] MEDS: HYDROcodone-ACET 10/325MG TAB PO PRN (06:08)
[2020-11-17] MEDS: InsuLIN REG 1unit/0.01ml Soln (100units/ml) SC SCH (06:16)
[2020-11-17 09:00] VITALS: BP 113/71
[2020-11-17] MEDS: INSULIN LANTUS (GLARGINE) 1 /0.01ml (100units/ml) SC SCH (10:00)
[2020-11-17] MEDS ORDERED: ASPirin 81 mg TAB PO SCH (10:00)
[2020-11-17] MEDS ORDERED: RANOLAZINE ER 500 MG TAB PO SCH (10:00)
[2020-11-17] MEDS: FAMOTIDINE 20 MG TAB PO SCH (10:08)
[2020-11-17] MEDS: busPIRone HCL 10 MG TAB PO SCH (10:08)
[2020-11-17] MEDS: TICAGRELOR 90 MG TAB PO SCH (10:08)
[2020-11-17] MEDS: METOPROLOL SUCCINATE XL 50 MG TAB PO SCH (10:10)
[2020-11-17] MEDS: LISINOPRIL 10 MG TAB PO SCH (10:10)
[2020-11-17] MEDS: ENOXAPARIN SOD 40 MG/0.4 ML SYRINGE SC SCH (10:11)
== END 2020-11-17 11:30 | disposition left against medical advice (07) | DRG 198 ==
LOC: ER 13:17 → TELE 21:05 → TELE-CENTR 23:30
PROVIDERS: ADMIT Nurse Practitioner; ATTEND Internal Medicine
DX: I25.110 Atherosclerotic heart disease of native coronary artery with unstable angina pectoris (principal); J84.9 Interstitial pulmonary disease, unspecified; E66.01 Morbid (severe) obesity due to excess calories; E11.65 Type 2 diabetes mellitus with hyperglycemia; R45.851 Suicidal ideations; F33.2 Major depressive disorder, recurrent severe without psychotic features; J98.11 Atelectasis; I10 Essential (primary) hypertension; Z20.822 Contact with and (suspected) exposure to COVID-19; E78.5 Hyperlipidemia, unspecified; F17.210 Nicotine dependence, cigarettes, uncomplicated; F41.9 Anxiety disorder, unspecified; F80.81 Childhood onset fluency disorder; I08.0 Rheumatic disorders of both mitral and aortic valves; Z68.33 Body mass index [BMI] 33.0-33.9, adult; Z79.02 Long term (current) use of antithrombotics/antiplatelets; Z79.4 Long term (current) use of insulin; I25.2 Old myocardial infarction; Z79.899 Other long term (current) drug therapy; Z82.49 Family history of ischemic heart disease and other diseases of the circulatory system; Z83.3 Family history of diabetes mellitus; Z86.73 Personal history of transient ischemic attack (TIA), and cerebral infarction without residual deficits; Z95.1 Presence of aortocoronary bypass graft
CPT/HCPCS: 36415; 51702; 70450; 70551; 71045; 78452; 80048; 80053; 81001; 82962; 83605; 83735; 83880; 84484; 85025; 85610; 85730; 87040; 87081; 87426; 93005; 93017; 96365; 96375; 96376; 99291; G0378; J0153; J0696; J1815; J2405

== ENCOUNTER 2020-12-08 20:58 | Inpatient (IN) | payer MEDICAID ==
[~2020-12-08] VITALS: Ht 175.3 cm; Wt 107.3 kg
[~2020-12-08 20:58] MED LIST changes: +BUPR150T8 PO; -BUPR300T28 PO; -BUSP10TA90 PO; +GABA300C10 PO; -LISI-648 PO; +LISI-716 PO; +MIR30T PO
[2020-12-08 21:41] LABS: Basophils # (auto) 0 10 ^3/uL (0-0.2); Basophils % (auto) 0.3 % (0.0-2.0); Eosinophils # (auto) 0 10 ^3/uL (0-0.8); Eosinophils % (auto) 0.5 % (0.0-7.0); Hematocrit 43.1 % (41.0-53.0); Hemoglobin 14.6 g/dL (13.5-17.5); Lymphocytes # (auto) 1.5 10 ^3/uL (0.4-5.4); Lymphocytes % (auto) 17.7 % (10.0-50.0); Mean Corpuscular Hemoglobin 29.9 pg (28.0-32.0); Mean Corpuscular Hgb Conc. 33.9 g/dL (32.0-36.0); Mean Corpuscular Volume 88.3 fL (80.0-100.0); Monocytes # (auto) 0.5 10 ^3/uL (0-1.3); Monocytes % (auto) 6.2 % (0.0-12.0); Neutrophils # (auto) 6.4 10 ^3/uL (1.6-8.6); Neutrophils % (auto) 75.3 % (37.0-80.0); Nucleated Red Blood Cells % 0.3 %; Platelet Count (auto) 139 10^3/uL (140-450); Red Blood Cells 4.88 10^6/uL (4.5-5.90); Red Cell Distribution Width 14.3 % (11.8-14.3); White Blood Cell 8.6 10^3/uL (4.4-10.8)
[2020-12-08 21:58] LABS: Chloride 103 mmol/L (98-107); Potassium 3.8 mmol/L (3.5-5.1); Sodium 137 mmol/L (136-145)
[2020-12-08 22:04] LABS: Alanine Aminotransferase 45 U/L (16-61); Albumin 3.5 g/dL (3.4-5.0); Alkaline Phosphatase 148 U/L (45-117); Anion Gap 10 (5-15); Aspartate Aminotransferase 24 U/L (15-37); BUN/Creatinine Ratio 11.1; Bilirubin, Total 0.4 mg/dL (0.2-1.0); Blood Urea Nitrogen 10 mg/dL (7-18); Calcium 8.6 mg/dL (8.5-10.1); Carbon Dioxide 24 mmol/L (21-32); GFR African American 118 mL/min; GFR Non-African American 97 mL/min; Glucose 354 mg/dL (74-106); Total Protein 7.6 g/dL (6.4-8.2)
[2020-12-08 22:10] LABS: INR 1.07 (0.9-1.15); Partial Thromboplastin Time 25.1 sec (23.0-31.2)
[2020-12-08 22:39] LABS: Urine Bacteria NONE SEEN /hpf (None Seen); Urine Blood Negative /uL (Negative); Urine Specific Gravity 1.039 (1.001-1.035); Urine WBC <1 /hpf (0 - 3)
[2020-12-08] MEDS ORDERED: ONDANSETRON HCL 4 MG/2 ML VIAL IV ONE (23:30)
[2020-12-08] MEDS ORDERED: MORPHINE SULFATE 4 MG/ML SYR/VIAL IV ONE (23:30)
[2020-12-09 00:24] LABS: Blood Alcohol < 3.0 mg/dL (0-5)
[2020-12-09 00:27] LABS: Alcohol, Urine < 3.0 mg/dL (0-10); Amphetamine Screen, Urine NEGATIVE (NEGATIVE); Barbiturate Scree,Urine NEGATIVE (NEGATIVE); Benzodiazephine Screen, Urine NEGATIVE (NEGATIVE); Cannabinoid Screen, Urine NEGATIVE (NEGATIVE); Cocaine Screen, Urine NEGATIVE (NEGATIVE); Opiate Scree,Urine NEGATIVE (NEGATIVE); Phencyclidine Screen, Urine NEGATIVE (NEGATIVE); Salicylate < 1.7 mg/dL (2.8-20.0)
[2020-12-09] MEDS ORDERED: NITROGLYCERIN 0.4 MG SL TAB SL PRN (00:30)
[2020-12-09] MEDS ORDERED: ACETAMINOPHEN 325 MG TAB PO PRN (00:30)
[2020-12-09] MEDS ORDERED: TEMAZEPAM 15 MG CAP PO PRN (00:30)
[2020-12-09] MEDS ORDERED: LORazepam 2MG/ML-1ML VIAL IV PRN ×2 (00:30→09:30)
[2020-12-09] MEDS ORDERED: LORazepam 2MG/ML-1ML VIAL IV ONE (00:30)
[2020-12-09] MEDS ORDERED: ONDANSETRON HCL 4 MG/2 ML VIAL IV PRN (00:30)
[2020-12-09] MEDS ORDERED: DEXTROSE (50%) 50ML SYRG IV PRN (00:30)
[2020-12-09 00:31] LABS: Acetaminophen < 2.0 ug/mL (10-30)
[2020-12-09] MEDS: MORPHINE SULF INJ 2 MG/ML SYRINGE 1ML IV PRN ×4 (02:22→12:36)
[2020-12-09 03:41] VITALS: BP 130/91
[2020-12-09] MEDS ORDERED: GABAPENTIN 300 MG CAP PO SCH (06:00)
[2020-12-09] MEDS: ACCU-CHEK COMFORT CURVE STRIP VI SCH ×2 (06:00→12:33)
[2020-12-09] MEDS: InsuLIN REG 1unit/0.01ml Soln (100units/ml) SC SCH ×2 (06:30→12:37)
[2020-12-09 08:00] VITALS: BP 120/76
[2020-12-09] MEDS ORDERED: ATORVASTATIN 20 MG TAB PO SCH ×3 (09:30→22:00)
[2020-12-09] MEDS ORDERED: BUPR300T28 PO (09:55)
[2020-12-09 09:56] LABS: Cholesterol 156 mg/dL (< 200); HDL Cholesterol 40 mg/dL (40-59); LDL Cholesterol 103 mg/dL (< 100); Triglycerides 102 mg/dL (< 150)
[2020-12-09] MEDS ORDERED: MIRT1TAB PO (09:57)
[2020-12-09] MEDS ORDERED: ENOXAPARIN SOD 40 MG/0.4 ML SYRINGE SC SCH (10:00)
[2020-12-09] MEDS ORDERED: TICAGRELOR 90 MG TAB PO SCH (10:00)
[2020-12-09] MEDS ORDERED: buPROPion HCL 75 MG TAB PO SCH (10:00)
[2020-12-09] MEDS ORDERED: FAMOTIDINE 20 MG TAB PO SCH (10:00)
[2020-12-09] MEDS ORDERED: ASPirin 81 mg TAB PO SCH (10:00)
[2020-12-09] MEDS ORDERED: METOPROLOL SUCCINATE XL 50 MG TAB PO SCH (10:00)
[2020-12-09] MEDS ORDERED: LISINOPRIL 10 MG TAB PO SCH (10:00)
[2020-12-09] MEDS ORDERED: INSU100I4 SC (10:01)
[2020-12-09] MEDS ORDERED: ONDA-155 PO (10:01)
[2020-12-09] MEDS ORDERED: METO5TAB2 PO (10:02)
[2020-12-09] MEDS ORDERED: METO10TA3 PO (10:10)
[2020-12-09] MEDS: ASPirin 81 mg TAB PO SCH ×2 (10:10→10:12)
[2020-12-09 12:00] VITALS: BP 156/98
== END 2020-12-09 14:00 | disposition left against medical advice (07) | DRG 47 ==
LOC: ER 20:59 → TELE 12-09 00:30 → TELE-WESTW 12-09 02:28
PROVIDERS: ADMIT Nurse Practitioner; ATTEND Internal Medicine
DX: G45.9 Transient cerebral ischemic attack, unspecified (principal); I11.0 Hypertensive heart disease with heart failure; I50.9 Heart failure, unspecified; F20.9 Schizophrenia, unspecified; E66.01 Morbid (severe) obesity due to excess calories; I25.110 Atherosclerotic heart disease of native coronary artery with unstable angina pectoris; F41.9 Anxiety disorder, unspecified; G89.4 Chronic pain syndrome; E11.9 Type 2 diabetes mellitus without complications; F17.210 Nicotine dependence, cigarettes, uncomplicated; E78.5 Hyperlipidemia, unspecified; F32.9 Major depressive disorder, single episode, unspecified; G47.10 Hypersomnia, unspecified; F80.81 Childhood onset fluency disorder; Z68.34 Body mass index [BMI] 34.0-34.9, adult; G47.30 Sleep apnea, unspecified; Z79.02 Long term (current) use of antithrombotics/antiplatelets; Z79.82 Long term (current) use of aspirin; Z79.899 Other long term (current) drug therapy; Z82.3 Family history of stroke; Z82.49 Family history of ischemic heart disease and other diseases of the circulatory system; Z83.3 Family history of diabetes mellitus; Z91.19 Patient's noncompliance with other medical treatment and regimen; Z95.1 Presence of aortocoronary bypass graft; Z20.822 Contact with and (suspected) exposure to COVID-19; Z53.29 Procedure and treatment not carried out because of patient's decision for other reasons; I25.2 Old myocardial infarction
CPT/HCPCS: 36415; 70450; 70551; 71045; 80053; 80061; 80307; 80320; 80329; 81001; 82962; 83735; 83880; 84484; 85025; 85610; 85730; 87081; 87426; 93005; 96374; 96375; G0378; J1815; J2405

== ENCOUNTER 2020-12-23 15:28 | Emergency (ER) | payer MEDICAID ==
[~2020-12-23] VITALS: Ht 175.3 cm; Wt 104.3 kg
[~2020-12-23 15:28] MED LIST changes: -BUPR150T8 PO; +BUPR300T28 PO; -INSREG3 SC; +INSU100I4 SC; +METO10TA3 PO; -MIR30T PO
[2020-12-23 15:30] VITALS: BP 150/107
[2020-12-23 16:13] LABS: Basophils # (auto) 0 10 ^3/uL (0-0.2); Basophils % (auto) 0.2 % (0.0-2.0); Eosinophils # (auto) 0.1 10 ^3/uL (0-0.8); Eosinophils % (auto) 0.6 % (0.0-7.0); Hematocrit 43.8 % (41.0-53.0); Hemoglobin 15.2 g/dL (13.5-17.5); Lymphocytes # (auto) 2.2 10 ^3/uL (0.4-5.4); Lymphocytes % (auto) 26.9 % (10.0-50.0); Mean Corpuscular Hgb Conc. 34.6 g/dL (32.0-36.0); Mean Corpuscular Volume 86.6 fL (80.0-100.0); Monocytes # (auto) 0.6 10 ^3/uL (0-1.3); Neutrophils # (auto) 5.3 10 ^3/uL (1.6-8.6); Neutrophils % (auto) 65.3 % (37.0-80.0); Nucleated Red Blood Cells % 0.1 %; Red Blood Cells 5.06 10^6/uL (4.5-5.90); Red Cell Distribution Width 13.5 % (11.8-14.3); White Blood Cell 8.1 10^3/uL (4.4-10.8)
[2020-12-23 16:33] LABS: Albumin 3.7 g/dL (3.4-5.0); Anion Gap 11 (5-15); Blood Urea Nitrogen 10 mg/dL (7-18); Calcium 8.6 mg/dL (8.5-10.1); Carbon Dioxide 24 mmol/L (21-32); Chloride 99 mmol/L (98-107); Glucose 349 mg/dL (74-106); Sodium 134 mmol/L (136-145)
[2020-12-23 16:36] LABS: Alanine Aminotransferase 46 U/L (16-61); Aspartate Aminotransferase 20 U/L (15-37); BUN/Creatinine Ratio 13.9; GFR African American 153 mL/min; GFR Non-African American 126 mL/min
[2020-12-23 16:41] LABS: Alkaline Phosphatase 173 U/L (45-117); Bilirubin, Total 0.5 mg/dL (0.2-1.0); Total Protein 7.8 g/dL (6.4-8.2)
== END 2020-12-23 17:23 | disposition home or self-care (01) ==
LOC: ER 15:28
DX: F41.9 Anxiety disorder, unspecified (principal); R07.9 Chest pain, unspecified; F20.9 Schizophrenia, unspecified; I12.9 Hypertensive chronic kidney disease with stage 1 through stage 4 chronic kidney disease, or unspecified chronic kidney disease; E11.22 Type 2 diabetes mellitus with diabetic chronic kidney disease; N18.9 Chronic kidney disease, unspecified; I25.2 Old myocardial infarction; F17.210 Nicotine dependence, cigarettes, uncomplicated; Z95.1 Presence of aortocoronary bypass graft; Z79.4 Long term (current) use of insulin; Z79.899 Other long term (current) drug therapy
CPT/HCPCS: 36415; 70450; 71045; 80053; 84484; 85025; 93005

== ENCOUNTER 2021-01-12 19:56 | Emergency (ER) | payer MEDICAID ==
[~2021-01-12] VITALS: Ht 175.3 cm; Wt 106.6 kg
[2021-01-12] MEDS ORDERED: ASPirin 325 MG TAB PO ONE (20:15)
[2021-01-12 20:46] LABS: Basophils # (auto) 0 10 ^3/uL (0-0.2); Basophils % (auto) 0.3 % (0.0-2.0); Eosinophils # (auto) 0 10 ^3/uL (0-0.8); Eosinophils % (auto) 0.4 % (0.0-7.0); Hematocrit 43.6 % (41.0-53.0); Lymphocytes # (auto) 1.3 10 ^3/uL (0.4-5.4); Lymphocytes % (auto) 17.3 % (10.0-50.0); Mean Corpuscular Hgb Conc. 34.4 g/dL (32.0-36.0); Monocytes # (auto) 0.5 10 ^3/uL (0-1.3); Monocytes % (auto) 6.2 % (0.0-12.0); Neutrophils # (auto) 5.7 10 ^3/uL (1.6-8.6); Neutrophils % (auto) 75.8 % (37.0-80.0); Platelet Count (auto) 134 10^3/uL (140-450); Red Blood Cells 5.01 10^6/uL (4.5-5.90); Red Cell Distribution Width 13.7 % (11.8-14.3); White Blood Cell 7.5 10^3/uL (4.4-10.8)
[2021-01-12 21:05] LABS: INR 1.02 (0.9-1.15); Partial Thromboplastin Time 25.9 sec (23.0-31.2)
[2021-01-12 21:18] LABS: Alanine Aminotransferase 50 U/L (16-61); Albumin 3.9 g/dL (3.4-5.0); Anion Gap 5 (5-15); Aspartate Aminotransferase 21 U/L (15-37); BUN/Creatinine Ratio 16.7; Blood Urea Nitrogen 11 mg/dL (7-18); Calcium 8.8 mg/dL (8.5-10.1); Carbon Dioxide 26 mmol/L (21-32); Chloride 102 mmol/L (98-107); GFR African American 169 mL/min; GFR Non-African American 139 mL/min; Glucose 308 mg/dL (74-106); Potassium 4.1 mmol/L (3.5-5.1); Sodium 133 mmol/L (136-145)
[2021-01-12 21:22] LABS: Alkaline Phosphatase 159 U/L (45-117); Bilirubin, Total 0.4 mg/dL (0.2-1.0)
[2021-01-12 23:42] VITALS: BP 148/85
[2021-01-13] MEDS ORDERED: KETOROLAC TROMETH 30 MG/ML 1ML VIAL IV ONE
[2021-01-13] MEDS ORDERED: diazePAM 5 MG TAB PO ONE
== END 2021-01-13 03:03 | disposition left against medical advice (07) ==
LOC: ER 20:00
DX: R53.1 Weakness (principal); R07.89 Other chest pain; R51.9 Headache, unspecified; F17.210 Nicotine dependence, cigarettes, uncomplicated; I12.9 Hypertensive chronic kidney disease with stage 1 through stage 4 chronic kidney disease, or unspecified chronic kidney disease; E11.22 Type 2 diabetes mellitus with diabetic chronic kidney disease; N13.9 Obstructive and reflux uropathy, unspecified; E78.5 Hyperlipidemia, unspecified; Z86.73 Personal history of transient ischemic attack (TIA), and cerebral infarction without residual deficits
CPT/HCPCS: 36415; 70450; 71045; 80053; 83880; 84484; 85025; 85610; 85730; 93005

== ENCOUNTER 2021-05-19 09:57 | Inpatient (IN) | payer MEDICAID ==
[~2021-05-19] VITALS: Ht 175.3 cm; Wt 112.2 kg
[2021-05-19 10:34] LABS: Basophils # (auto) 0 10 ^3/uL (0-0.2); Basophils % (auto) 0.5 % (0.0-2.0); Eosinophils # (auto) 0.1 10 ^3/uL (0-0.8); Hemoglobin 15.5 g/dL (13.5-17.5); Lymphocytes % (auto) 30.6 % (10.0-50.0); Mean Corpuscular Hemoglobin 30.7 pg (28.0-32.0); Mean Corpuscular Hgb Conc. 33.7 g/dL (32.0-36.0); Mean Corpuscular Volume 91.1 fL (80.0-100.0); Monocytes # (auto) 0.6 10 ^3/uL (0-1.3); Monocytes % (auto) 9.9 % (0.0-12.0); Neutrophils # (auto) 3.8 10 ^3/uL (1.6-8.6); Nucleated Red Blood Cells % 0.1 %; Red Blood Cells 5.05 10^6/uL (4.5-5.90); Red Cell Distribution Width 14.8 % (11.8-14.3); White Blood Cell 6.5 10^3/uL (4.4-10.8)
[2021-05-19 10:47] LABS: Albumin 3.7 g/dL (3.4-5.0); Anion Gap 7 (5-15); Blood Urea Nitrogen 6 mg/dL (7-18); Calcium 8.7 mg/dL (8.5-10.1); Carbon Dioxide 26 mmol/L (21-32); Chloride 103 mmol/L (98-107); Glucose 380 mg/dL (74-106); Potassium 3.6 mmol/L (3.5-5.1); Sodium 136 mmol/L (136-145)
[2021-05-19 10:52] LABS: Alanine Aminotransferase 54 U/L (16-61); Alkaline Phosphatase 149 U/L (45-117); Aspartate Aminotransferase 24 U/L (15-37); BUN/Creatinine Ratio 5.6; Bilirubin, Total 0.7 mg/dL (0.2-1.0); GFR African American 96 mL/min; GFR Non-African American 79 mL/min; Total Protein 7.7 g/dL (6.4-8.2)
[2021-05-19] MEDS ORDERED: ONDANSETRON HCL 4 MG/2 ML VIAL IV ONE ×2 (13:00→13:45)
[2021-05-19] MEDS ORDERED: NITROGLYCERIN 0.4 MG SL TAB SL ONE (13:00)
[2021-05-19] MEDS ORDERED: InsuLIN REG 1unit/0.01ml Soln (100units/ml) IV ONE (13:00)
[2021-05-19] MEDS ORDERED: MORPHINE SULFATE 4 MG/ML SYR/VIAL IV ONE (13:00)
[2021-05-19] MEDS ORDERED: FUROSEMIDE 40 MG/4 ML VIAL IV ONE (13:00)
[2021-05-19] MEDS ORDERED: ONDANSETRON HCL 4 MG/2 ML VIAL ONE (13:44)
[2021-05-19] MEDS ORDERED: MORPHINE SULFATE INJECTION 2 MG/ML SYRG IV PRN (14:30)
[2021-05-19] MEDS ORDERED: NITROGLYCERIN 0.4 MG SL TAB SL PRN (14:30)
[2021-05-19] MEDS ORDERED: ONDANSETRON HCL 4 MG/2 ML VIAL IV PRN (14:30)
[2021-05-19] MEDS: HYDROcodone-ACET 5/325MG TAB PO PRN ×2 (15:27→21:42)
[2021-05-19] MEDS ORDERED: DEXT20CA PO (17:50)
[2021-05-19] MEDS ORDERED: DIVA250T12 PO (17:50)
[2021-05-19] MEDS ORDERED: BUPRTAB PO (17:50)
[2021-05-19] MEDS ORDERED: METO-289 PO (17:50)
[2021-05-19] MEDS ORDERED: LISI40TA11 PO (17:50)
[2021-05-19] MEDS ORDERED: LURA40TA PO (17:50)
[2021-05-19] MEDS ORDERED: BUPRTAB3 PO (17:50)
[2021-05-19] MEDS ORDERED: RANO500T2 PO (17:50)
[2021-05-19] MEDS ORDERED: LORA1TAB23 PO (17:50)
[2021-05-19] MEDS: MORPHINE SULFATE INJECTION 2 MG/ML SYRG IV PRN ×2 (17:55→23:59)
[2021-05-19 18:30] VITALS: BP 148/76
[2021-05-19 20:20] LABS: INR 1.06 (0.9-1.15); Partial Thromboplastin Time 24.3 sec (23.6-33.0)
[2021-05-19] MEDS: GABAPENTIN 300 MG CAP PO SCH (21:43)
[2021-05-19] MEDS: RANOLAZINE ER 500 MG TAB PO SCH (21:43)
[2021-05-19] MEDS: TICAGRELOR 90 MG TAB PO SCH (21:44)
[2021-05-19 22:00] VITALS: BP 148/87
[2021-05-19] MEDS ORDERED: ATORVASTATIN 20 MG TAB PO SCH (22:00)
[2021-05-20] VITALS (9 sets, daily range): BP systolic 115–139; BP diastolic 71–82
[2021-05-20] MEDS: HYDROcodone-ACET 5/325MG TAB PO PRN (04:39)
[2021-05-20] MEDS: GABAPENTIN 300 MG CAP PO SCH ×2 (05:16→14:28)
[2021-05-20] MEDS: MORPHINE SULFATE INJECTION 2 MG/ML SYRG IV PRN ×2 (06:15→14:28)
[2021-05-20] MEDS ORDERED: IODIXANOL 320MG/ML 100ML BTL IV ONE ×2 (09:46→10:14)
[2021-05-20] MEDS ORDERED: LIDOCAINE 2%HCL (LOCAL ANESTH.) INJ 20ML MDV ONE (09:46)
[2021-05-20] MEDS ORDERED: ANGIOMAX 250 MG VIAL IV ONE (09:55)
[2021-05-20] MEDS ORDERED: MIDAZOLAM HCL 2MG/2ML 2ml VIAL (1mg/ml) ONE (09:55)
[2021-05-20] MEDS ORDERED: fentaNYL CITRATE 100 MCG/2 ML VL ONE (09:55)
[2021-05-20] MEDS ORDERED: SODIUM CHL 0.9% 0 ML ONE (09:55)
[2021-05-20 09:56] LABS: Urine Bacteria NONE SEEN /hpf (None Seen); Urine Blood Negative /uL (Negative); Urine WBC <1 /hpf (0 - 3)
[2021-05-20] MEDS: TICAGRELOR 90 MG TAB PO SCH (10:00)
[2021-05-20] MEDS ORDERED: buPROPion HCL 100 MG TAB PO SCH (10:00)
[2021-05-20] MEDS ORDERED: LISINOPRIL 20 MG TAB PO SCH (10:00)
[2021-05-20] MEDS: RANOLAZINE ER 500 MG TAB PO SCH (10:00)
[2021-05-20] MEDS ORDERED: ASPirin 81 mg TAB PO SCH (10:00)
[2021-05-20] MEDS ORDERED: METOPROLOL SUCCINATE XL 50 MG TAB PO SCH (10:00)
[2021-05-20] MEDS ORDERED: HEPARIN SODIUM (PORCINE) 5000 UNITS/ML 1ML VIAL ONE (10:08)
[2021-05-20] MEDS ORDERED: diphenhdrAMINE HCL 50 MG/1 ML VL ONE (10:09)
[2021-05-20] MEDS ORDERED: VERAPAMIL 2.5MG/ML INJ 2ML VIAL IV ONE (10:09)
[2021-05-20] MEDS ORDERED: ACETAMINOPHEN 325 MG TAB PO PRN (15:00)
== END 2021-05-20 16:39 | disposition home or self-care (01) | DRG 191 ==
LOC: ER 09:57 → TELE 14:18 → TELE-WESTW 17:28
PROVIDERS: ADMIT Internal Medicine; ATTEND Internal Medicine
PROC: 4A023N7 Measurement of Cardiac Sampling and Pressure, Left Heart, Percutaneous Approach (ICD-10-PCS; principal; 2021-05-20)
PROC: B211YZZ Fluoroscopy of Multiple Coronary Arteries using Other Contrast (ICD-10-PCS; 2021-05-20)
PROC: B218YZZ Fluoroscopy of Left Internal Mammary Bypass Graft using Other Contrast (ICD-10-PCS; 2021-05-20)
DX: I25.110 Atherosclerotic heart disease of native coronary artery with unstable angina pectoris (principal); I50.43 Acute on chronic combined systolic (congestive) and diastolic (congestive) heart failure; E11.22 Type 2 diabetes mellitus with diabetic chronic kidney disease; E11.40 Type 2 diabetes mellitus with diabetic neuropathy, unspecified; I13.0 Hypertensive heart and chronic kidney disease with heart failure and stage 1 through stage 4 chronic kidney disease, or unspecified chronic kidney disease; E11.65 Type 2 diabetes mellitus with hyperglycemia; N18.9 Chronic kidney disease, unspecified; F32.9 Major depressive disorder, single episode, unspecified; E78.5 Hyperlipidemia, unspecified; F17.210 Nicotine dependence, cigarettes, uncomplicated; F20.9 Schizophrenia, unspecified; F41.9 Anxiety disorder, unspecified; Z20.822 Contact with and (suspected) exposure to COVID-19; Z82.49 Family history of ischemic heart disease and other diseases of the circulatory system; Z83.3 Family history of diabetes mellitus; Z86.73 Personal history of transient ischemic attack (TIA), and cerebral infarction without residual deficits; Z95.1 Presence of aortocoronary bypass graft
CPT/HCPCS: 36415; 71045; 80053; 81001; 82962; 84484; 85025; 85610; 85730; 87426; 93005; 93458; 96374; 96375; 99152; 99153; G0378; J1815; J2250; J2405; Q9967

== ENCOUNTER 2021-12-08 23:40 | Inpatient (IN) | payer MEDICAID ==
[~2021-12-08] VITALS: Ht 175.3 cm; Wt 109.1 kg
[~2021-12-08 23:40] MED LIST changes: +BUPRTAB PO; +BUPRTAB3 PO; +DEXT20CA PO; +DIVA250T12 PO; -LISI-716 PO; +LISI40TA11 PO; +LORA1TAB23 PO; +LURA40TA PO; +METO-289 PO; -METO25TA93 PO; +RANO500T2 PO
[2021-12-09 00:55] LABS: Urine WBC None Seen /hpf (0 - 3)
[2021-12-09 00:58] LABS: Basophils # (auto) 0 10 ^3/uL (0-0.2); Basophils % (auto) 0.3 % (0.0-2.0); Eosinophils # (auto) 0 10 ^3/uL (0-0.8); Eosinophils % (auto) 0.6 % (0.0-7.0); Hematocrit 45.5 % (41.0-53.0); Hemoglobin 15.5 g/dL (13.5-17.5); Lymphocytes # (auto) 2.3 10 ^3/uL (0.4-5.4); Lymphocytes % (auto) 28.3 % (10.0-50.0); Mean Corpuscular Hemoglobin 30.9 pg (28.0-32.0); Mean Corpuscular Hgb Conc. 34.1 g/dL (32.0-36.0); Mean Corpuscular Volume 90.5 fL (80.0-100.0); Monocytes # (auto) 0.6 10 ^3/uL (0-1.3); Monocytes % (auto) 7.1 % (0.0-12.0); Neutrophils # (auto) 5.2 10 ^3/uL (1.6-8.6); Neutrophils % (auto) 63.7 % (37.0-80.0); Nucleated Red Blood Cells % 0.2 %; Red Blood Cells 5.02 10^6/uL (4.5-5.90); Red Cell Distribution Width 13.4 % (11.8-14.3); White Blood Cell 8.2 10^3/uL (4.4-10.8)
[2021-12-09 01:18] LABS: Albumin 3.9 g/dL (3.4-5.0); Magnesium 2.4 mg/dL (1.6-2.6); Potassium 4.5 mmol/L (3.5-5.1)
[2021-12-09 01:19] LABS: INR 1.05 (0.9-1.15)
[2021-12-09 01:21] LABS: Bilirubin, Total 0.5 mg/dL (0.2-1.0)
[2021-12-09 01:24] LABS: Urine Bacteria NONE SEEN /hpf (None Seen); Urine Blood Negative /uL (Negative); Urine Specific Gravity 1.033 (1.001-1.035)
[2021-12-09] MEDS ORDERED: IOHEXOL 350 MG/ML 100ML IJ ONE (02:54)
[2021-12-09] MEDS ORDERED: ONDANSETRON HCL 4 MG/2 ML VIAL ONE (02:58)
[2021-12-09] MEDS ORDERED: MORPHINE SULFATE 4 MG/ML SYR/VIAL IV ONE ×2 (03:00)
[2021-12-09] MEDS ORDERED: InsuLIN REG 1unit/0.01ml Soln (100units/ml) SC ONE (03:00)
[2021-12-09] MEDS ORDERED: ONDANSETRON HCL 4 MG/2 ML VIAL IV ONE ×2 (03:15)
[2021-12-09] MEDS ORDERED: ENOXAPARIN SOD 100 MG/1 ML SYRINGE SC ONE (05:30)
[2021-12-09] MEDS ORDERED: ACETAMINOPHEN 325 MG TAB PO PRN (05:45)
[2021-12-09] MEDS ORDERED: HYDROcodone-ACET 5/325MG TAB PO PRN (05:45)
[2021-12-09] MEDS ORDERED: hydrALAZINE HCL 10 MG TAB PO PRN (05:45)
[2021-12-09] MEDS ORDERED: HEPARIN SODIUM (PORCINE) 5000 UNITS/ML 1ML VIAL IV ONE (06:15)
[2021-12-09] MEDS ORDERED: HEPARIN DRIP/D5W 100UNITS/ML 250 ML IV SCH (06:15)
[2021-12-09] MEDS ORDERED: HEPARIN SODIUM (PORCINE) 5000 UNITS/ML 1ML VIAL ONE (06:37)
[2021-12-09 07:20] LABS: Basophils # (auto) 0 10 ^3/uL (0-0.2); Basophils % (auto) 0.2 % (0.0-2.0); Eosinophils # (auto) 0.1 10 ^3/uL (0-0.8); Eosinophils % (auto) 1.1 % (0.0-7.0); Hematocrit 42.2 % (41.0-53.0); Hemoglobin 14.4 g/dL (13.5-17.5); Lymphocytes # (auto) 2.5 10 ^3/uL (0.4-5.4); Lymphocytes % (auto) 35.7 % (10.0-50.0); Mean Corpuscular Hemoglobin 30.8 pg (28.0-32.0); Mean Corpuscular Hgb Conc. 34.2 g/dL (32.0-36.0); Monocytes # (auto) 0.5 10 ^3/uL (0-1.3); Monocytes % (auto) 7.5 % (0.0-12.0); Neutrophils # (auto) 3.9 10 ^3/uL (1.6-8.6); Neutrophils % (auto) 55.5 % (37.0-80.0); Nucleated Red Blood Cells % 0.1 %; Red Cell Distribution Width 13.2 % (11.8-14.3)
[2021-12-09 07:26] LABS: INR 1.1 (0.9-1.15); Partial Thromboplastin Time 29.8 sec (23.6-33.0)
[2021-12-09] MEDS: ONDANSETRON HCL 4 MG/2 ML VIAL IV PRN ×2 (07:41→17:20)
[2021-12-09] MEDS: MORPHINE SULFATE INJECTION 2 MG/ML SYRG IV PRN ×3 (07:41→20:20)
[2021-12-09] MEDS: FAMOTIDINE 20 MG TAB PO SCH ×2 (09:40→22:07)
[2021-12-09] MEDS: ASPirin-EC 81 mg tab PO SCH (09:40)
[2021-12-09 13:53] LABS: INR 1.14 (0.9-1.15); Partial Thromboplastin Time 60.9 sec (23.6-33.0)
[2021-12-09 17:00] VITALS: BP 128/79
[2021-12-09] MEDS ORDERED: DEXTROSE (50%) 50ML SYRG IV PRN (19:00)
[2021-12-09] MEDS: HEPARIN DRIP/D5W 100UNITS/ML 250 ML IV SCH (21:30)
[2021-12-09] MEDS: ATORVASTATIN 20 MG TAB PO SCH (22:07)
[2021-12-09] MEDS: ACCU-CHEK COMFORT CURVE STRIP VI SCH (22:08)
[2021-12-09 22:13] VITALS: BP 125/78
[2021-12-09] MEDS: InsuLIN REG 1unit/0.01ml Soln (100units/ml) SC SCH (22:32)
[2021-12-10] MEDS: MORPHINE SULFATE INJECTION 2 MG/ML SYRG IV PRN ×4 (02:23→20:52)
[2021-12-10] MEDS: HYDROcodone-ACET 10/325MG TAB PO PRN ×3 (04:05→18:31)
[2021-12-10 05:05] VITALS: BP 125/102
[2021-12-10] MEDS: ACCU-CHEK COMFORT CURVE STRIP VI SCH ×4 (06:14→21:34)
[2021-12-10] MEDS: GABAPENTIN 300 MG CAP PO SCH ×3 (06:14→21:34)
[2021-12-10] MEDS: InsuLIN REG 1unit/0.01ml Soln (100units/ml) SC SCH ×4 (06:18→21:38)
[2021-12-10 06:42] LABS: Basophils # (auto) 0 10 ^3/uL (0-0.2); Basophils % (auto) 0.7 % (0.0-2.0); Eosinophils # (auto) 0.1 10 ^3/uL (0-0.8); Eosinophils % (auto) 0.9 % (0.0-7.0); Hematocrit 42.1 % (41.0-53.0); Hemoglobin 14.5 g/dL (13.5-17.5); Lymphocytes # (auto) 2.4 10 ^3/uL (0.4-5.4); Lymphocytes % (auto) 35.2 % (10.0-50.0); Mean Corpuscular Hemoglobin 31.2 pg (28.0-32.0); Mean Corpuscular Hgb Conc. 34.4 g/dL (32.0-36.0); Mean Corpuscular Volume 90.8 fL (80.0-100.0); Monocytes # (auto) 0.5 10 ^3/uL (0-1.3); Monocytes % (auto) 7.7 % (0.0-12.0); Neutrophils # (auto) 3.8 10 ^3/uL (1.6-8.6); Neutrophils % (auto) 55.5 % (37.0-80.0); Nucleated Red Blood Cells % 0.2 %; Red Blood Cells 4.64 10^6/uL (4.5-5.90); Red Cell Distribution Width 13.1 % (11.8-14.3); White Blood Cell 6.9 10^3/uL (4.4-10.8)
[2021-12-10 06:57] LABS: Albumin 3.4 g/dL (3.4-5.0); BUN/Creatinine Ratio 10.3; Calcium 8.8 mg/dL (8.5-10.1); INR 1.11 (0.9-1.15); Partial Thromboplastin Time 49.8 sec (23.6-33.0); Potassium 3.9 mmol/L (3.5-5.1)
[2021-12-10 07:00] LABS: Bilirubin, Total 0.5 mg/dL (0.2-1.0); Total Protein 7.5 g/dL (6.4-8.2)
[2021-12-10 08:00] VITALS: BP 128/81
[2021-12-10] MEDS: ASPirin-EC 81 mg tab PO SCH (08:32)
[2021-12-10] MEDS: FAMOTIDINE 20 MG TAB PO SCH ×2 (08:32→21:33)
[2021-12-10 10:09] LABS: INR 1.1 (0.9-1.15)
[2021-12-10] MEDS: HEPARIN DRIP/D5W 100UNITS/ML 250 ML IV SCH ×2 (11:53→23:35)
[2021-12-10 12:00] VITALS: BP 139/88
[2021-12-10 16:00] VITALS: BP 120/73
[2021-12-10 18:26] LABS: INR 1.11 (0.9-1.15); Partial Thromboplastin Time 50.1 sec (23.6-33.0)
[2021-12-10] MEDS: ATORVASTATIN 20 MG TAB PO SCH (21:33)
[2021-12-10 21:59] VITALS: BP 119/80
[2021-12-10 23:34] LABS: INR 1.1 (0.9-1.15); Partial Thromboplastin Time 53.3 sec (23.6-33.0)
[2021-12-11] MEDS: HYDROcodone-ACET 10/325MG TAB PO PRN ×4 (00:36→18:24)
[2021-12-11] MEDS: MORPHINE SULFATE INJECTION 2 MG/ML SYRG IV PRN ×4 (02:55→21:27)
[2021-12-11 05:17] VITALS: BP 149/89
[2021-12-11] MEDS: GABAPENTIN 300 MG CAP PO SCH ×3 (06:27→21:33)
[2021-12-11] MEDS: ACCU-CHEK COMFORT CURVE STRIP VI SCH ×4 (06:38→21:33)
[2021-12-11] MEDS: InsuLIN REG 1unit/0.01ml Soln (100units/ml) SC SCH ×4 (06:41→21:52)
[2021-12-11 07:17] LABS: Basophils # (auto) 0 10 ^3/uL (0-0.2); Basophils % (auto) 0.4 % (0.0-2.0); Eosinophils # (auto) 0.1 10 ^3/uL (0-0.8); Eosinophils % (auto) 0.9 % (0.0-7.0); Hematocrit 42.2 % (41.0-53.0); Hemoglobin 14.9 g/dL (13.5-17.5); Lymphocytes # (auto) 2.9 10 ^3/uL (0.4-5.4); Lymphocytes % (auto) 37.4 % (10.0-50.0); Mean Corpuscular Hemoglobin 31.7 pg (28.0-32.0); Mean Corpuscular Hgb Conc. 35.2 g/dL (32.0-36.0); Mean Corpuscular Volume 90.2 fL (80.0-100.0); Monocytes # (auto) 0.6 10 ^3/uL (0-1.3); Monocytes % (auto) 7.1 % (0.0-12.0); Neutrophils # (auto) 4.3 10 ^3/uL (1.6-8.6); Neutrophils % (auto) 54.2 % (37.0-80.0); Nucleated Red Blood Cells % 0.2 %; Red Blood Cells 4.68 10^6/uL (4.5-5.90); Red Cell Distribution Width 13.3 % (11.8-14.3); White Blood Cell 7.9 10^3/uL (4.4-10.8)
[2021-12-11 07:28] LABS: Albumin 3.4 g/dL (3.4-5.0); Calcium 8.7 mg/dL (8.5-10.1); Potassium 3.7 mmol/L (3.5-5.1)
[2021-12-11 07:31] LABS: BUN/Creatinine Ratio 12.2; Bilirubin, Total 0.5 mg/dL (0.2-1.0); Total Protein 7.7 g/dL (6.4-8.2)
[2021-12-11 09:00] VITALS: BP 135/87
[2021-12-11] MEDS: ASPirin-EC 81 mg tab PO SCH (09:01)
[2021-12-11] MEDS: FAMOTIDINE 20 MG TAB PO SCH ×2 (09:01→21:33)
[2021-12-11 12:00] VITALS: BP 130/78
[2021-12-11] MEDS: APIXABAN 5 MG TAB PO SCH ×2 (12:25→21:32)
[2021-12-11 17:00] VITALS: BP 120/74
[2021-12-11] MEDS: ATORVASTATIN 20 MG TAB PO SCH (21:33)
[2021-12-11 22:00] VITALS: BP 133/76
[2021-12-12] MEDS: MORPHINE SULFATE INJECTION 2 MG/ML SYRG IV PRN (03:44)
[2021-12-12 05:00] VITALS: BP 114/71
[2021-12-12] MEDS: ACCU-CHEK COMFORT CURVE STRIP VI SCH ×4 (06:37→21:29)
[2021-12-12] MEDS: GABAPENTIN 300 MG CAP PO SCH ×3 (06:37→21:28)
[2021-12-12] MEDS: InsuLIN REG 1unit/0.01ml Soln (100units/ml) SC SCH ×5 (06:38→21:33)
[2021-12-12 08:00] VITALS: BP 147/85
[2021-12-12 08:06] LABS: Basophils # (auto) 0 10 ^3/uL (0-0.2); Basophils % (auto) 0.5 % (0.0-2.0); Eosinophils # (auto) 0.1 10 ^3/uL (0-0.8); Hematocrit 42.3 % (41.0-53.0); Hemoglobin 14.7 g/dL (13.5-17.5); Lymphocytes # (auto) 2.4 10 ^3/uL (0.4-5.4); Lymphocytes % (auto) 29.4 % (10.0-50.0); Mean Corpuscular Hgb Conc. 34.9 g/dL (32.0-36.0); Mean Corpuscular Volume 88.8 fL (80.0-100.0); Monocytes # (auto) 0.6 10 ^3/uL (0-1.3); Monocytes % (auto) 7.3 % (0.0-12.0); Neutrophils # (auto) 5.1 10 ^3/uL (1.6-8.6); Neutrophils % (auto) 61.8 % (37.0-80.0); Nucleated Red Blood Cells % 0.2 %; Red Blood Cells 4.76 10^6/uL (4.5-5.90); White Blood Cell 8.2 10^3/uL (4.4-10.8)
[2021-12-12 08:21] LABS: Albumin 3.5 g/dL (3.4-5.0); Calcium 8.8 mg/dL (8.5-10.1); Potassium 3.7 mmol/L (3.5-5.1)
[2021-12-12 08:25] LABS: BUN/Creatinine Ratio 12.7; Bilirubin, Total 0.8 mg/dL (0.2-1.0); Total Protein 7.6 g/dL (6.4-8.2)
[2021-12-12] MEDS: APIXABAN 5 MG TAB PO SCH ×2 (10:46→21:27)
[2021-12-12] MEDS: FAMOTIDINE 20 MG TAB PO SCH ×2 (10:46→21:28)
[2021-12-12] MEDS: ASPirin-EC 81 mg tab PO SCH (10:46)
[2021-12-12] MEDS: MORPHINE SULFATE 4 MG/ML SYR/VIAL IV PRN ×2 (11:40→19:16)
[2021-12-12 12:00] VITALS: BP 134/74
[2021-12-12] MEDS: HYDROcodone-ACET 10/325MG TAB PO PRN ×2 (14:21→20:24)
[2021-12-12 16:00] VITALS: BP 133/78
[2021-12-12] MEDS: ATORVASTATIN 20 MG TAB PO SCH (21:28)
[2021-12-12 22:00] VITALS: BP 147/84
[2021-12-13] MEDS: MORPHINE SULFATE 4 MG/ML SYR/VIAL IV PRN ×4 (01:17→20:21)
[2021-12-13] MEDS: HYDROcodone-ACET 10/325MG TAB PO PRN ×3 (04:51→17:13)
[2021-12-13 05:00] VITALS: BP 155/91
[2021-12-13] MEDS: ONDANSETRON HCL 4 MG/2 ML VIAL IV PRN ×2 (05:10→20:21)
[2021-12-13] MEDS: GABAPENTIN 300 MG CAP PO SCH ×3 (05:11→21:29)
[2021-12-13] MEDS: ACCU-CHEK COMFORT CURVE STRIP VI SCH ×4 (06:30→22:00)
[2021-12-13] MEDS: InsuLIN REG 1unit/0.01ml Soln (100units/ml) SC SCH ×4 (06:33→21:34)
[2021-12-13] MEDS: APIXABAN 5 MG TAB PO SCH ×2 (08:26→21:29)
[2021-12-13] MEDS: FAMOTIDINE 20 MG TAB PO SCH ×2 (08:26→21:30)
[2021-12-13 09:00] VITALS: BP 128/77
[2021-12-13] MEDS: ASPirin-EC 81 mg tab PO SCH (11:45)
[2021-12-13 13:00] VITALS: BP 134/80
[2021-12-13 17:00] VITALS: BP 120/77
[2021-12-13] MEDS: ATORVASTATIN 20 MG TAB PO SCH (21:29)
[2021-12-13 22:00] VITALS: BP 146/78
[2021-12-14] MEDS: HYDROcodone-ACET 10/325MG TAB PO PRN ×3 (00:01→12:21)
[2021-12-14] MEDS: ONDANSETRON HCL 4 MG/2 ML VIAL IV PRN (02:50)
[2021-12-14] MEDS: MORPHINE SULFATE 4 MG/ML SYR/VIAL IV PRN ×2 (02:51→09:02)
[2021-12-14 05:00] VITALS: BP 110/49
[2021-12-14] MEDS: GABAPENTIN 300 MG CAP PO SCH ×2 (06:18→14:00)
[2021-12-14] MEDS: ACCU-CHEK COMFORT CURVE STRIP VI SCH ×2 (06:29→11:30)
[2021-12-14] MEDS: InsuLIN REG 1unit/0.01ml Soln (100units/ml) SC SCH ×2 (06:29→11:45)
[2021-12-14] MEDS: ASPirin-EC 81 mg tab PO SCH (08:59)
[2021-12-14 09:00] VITALS: BP 134/90
[2021-12-14] MEDS: FAMOTIDINE 20 MG TAB PO SCH (09:00)
[2021-12-14] MEDS: APIXABAN 5 MG TAB PO SCH (09:00)
[2021-12-14] MEDS ORDERED: APIX5TAB PO (10:22)
[2021-12-14 13:00] VITALS: BP 142/93
[2021-12-14 13:18] VITALS: BP 143/93
== END 2021-12-14 14:15 | disposition home or self-care (01) | DRG 134 ==
LOC: ER 23:44 → TELE 12-09 05:41 → TELE-EAST 12-09 13:57
PROVIDERS: ADMIT Nurse Practitioner Family; ATTEND Nurse Practitioner Family
DX: I26.99 Other pulmonary embolism without acute cor pulmonale (principal); E11.22 Type 2 diabetes mellitus with diabetic chronic kidney disease; E66.9 Obesity, unspecified; I25.10 Atherosclerotic heart disease of native coronary artery without angina pectoris; Z68.33 Body mass index [BMI] 33.0-33.9, adult; F41.9 Anxiety disorder, unspecified; Z20.822 Contact with and (suspected) exposure to COVID-19; F20.9 Schizophrenia, unspecified; E78.5 Hyperlipidemia, unspecified; F17.210 Nicotine dependence, cigarettes, uncomplicated; I12.9 Hypertensive chronic kidney disease with stage 1 through stage 4 chronic kidney disease, or unspecified chronic kidney disease; N18.9 Chronic kidney disease, unspecified; Z79.01 Long term (current) use of anticoagulants; Z79.02 Long term (current) use of antithrombotics/antiplatelets; Z79.899 Other long term (current) drug therapy; Z82.49 Family history of ischemic heart disease and other diseases of the circulatory system; Z83.3 Family history of diabetes mellitus; Z86.73 Personal history of transient ischemic attack (TIA), and cerebral infarction without residual deficits; Z95.1 Presence of aortocoronary bypass graft; E11.65 Type 2 diabetes mellitus with hyperglycemia; Z79.4 Long term (current) use of insulin
CPT/HCPCS: 36415; 71046; 71275; 80053; 81001; 82962; 83036; 83735; 83880; 84484; 85025; 85610; 85730; 93005; 93970; 93971; 96365; 96372; 96375; 96376; 99291; G0378; J1815; J2405

== ENCOUNTER 2021-12-15 23:47 | Emergency (ER) | payer MEDICAID ==
[~2021-12-15] VITALS: Ht 175.3 cm; Wt 104.3 kg
[~2021-12-15 23:47] MED LIST changes: +APIX5TAB PO; -ASPI-543 PO; -TICA90TA PO
[2021-12-16] MEDS ORDERED: MORPHINE SULFATE 4 MG/ML SYR/VIAL IV ONE (01:00)
[2021-12-16 01:03] LABS: INR 1.22 (0.9-1.15); Partial Thromboplastin Time 30.5 sec (23.6-33.0)
[2021-12-16 01:06] LABS: Albumin 3.4 g/dL (3.4-5.0); BUN/Creatinine Ratio 17.8; Calcium 8.6 mg/dL (8.5-10.1); Potassium 4.1 mmol/L (3.5-5.1)
[2021-12-16 01:09] LABS: Total Protein 6.8 g/dL (6.4-8.2)
[2021-12-16 01:54] LABS: Basophils # (auto) 0 10 ^3/uL (0-0.2); Basophils % (auto) 0.2 % (0.0-2.0); Eosinophils # (auto) 0.1 10 ^3/uL (0-0.8); Eosinophils % (auto) 0.7 % (0.0-7.0); Hematocrit 38.9 % (41.0-53.0); Hemoglobin 13.4 g/dL (13.5-17.5); Lymphocytes # (auto) 2.7 10 ^3/uL (0.4-5.4); Lymphocytes % (auto) 30.3 % (10.0-50.0); Mean Corpuscular Hemoglobin 30.4 pg (28.0-32.0); Mean Corpuscular Hgb Conc. 34.4 g/dL (32.0-36.0); Mean Corpuscular Volume 88.4 fL (80.0-100.0); Monocytes # (auto) 0.7 10 ^3/uL (0-1.3); Monocytes % (auto) 7.4 % (0.0-12.0); Neutrophils # (auto) 5.5 10 ^3/uL (1.6-8.6); Neutrophils % (auto) 61.4 % (37.0-80.0); Red Cell Distribution Width 13.5 % (11.8-14.3); White Blood Cell 8.9 10^3/uL (4.4-10.8)
[2021-12-16 03:30] VITALS: BP 110/72
== END 2021-12-16 03:40 | disposition home or self-care (01) ==
LOC: ER 23:50
DX: R07.89 Other chest pain (principal); I26.99 Other pulmonary embolism without acute cor pulmonale; I12.9 Hypertensive chronic kidney disease with stage 1 through stage 4 chronic kidney disease, or unspecified chronic kidney disease; E11.22 Type 2 diabetes mellitus with diabetic chronic kidney disease; N18.9 Chronic kidney disease, unspecified; Z86.74 Personal history of sudden cardiac arrest; Z79.4 Long term (current) use of insulin; Z79.82 Long term (current) use of aspirin; Z79.899 Other long term (current) drug therapy
CPT/HCPCS: 36415; 71045; 80053; 84484; 85025; 85610; 85730; 93005; 96374; 99285; J2270

== ENCOUNTER 2021-12-30 05:15 | Emergency (ER) | payer MEDICAID ==
[~2021-12-30] VITALS: Ht 175.3 cm; Wt 108.9 kg
[~2021-12-30 05:15] MED LIST changes: +ASPI-543 PO; +BUPR150T8 PO; +DIVA500T2 PO; +ISOS60TA24 PO; +LORA0.5T20 PO; +ONDA-144 PO; +TICA90TA PO; +ZOLP12.569 PO
[2021-12-30] MEDS ORDERED: MORPHINE SULFATE 4 MG/ML SYR/VIAL IV ONE (06:45)
[2021-12-30] MEDS ORDERED: ONDANSETRON HCL 4 MG/2 ML VIAL IV ONE (06:45)
[2021-12-30 06:51] LABS: Urine Bacteria NONE SEEN /hpf (None Seen); Urine Blood Negative /uL (Negative); Urine Specific Gravity 1.027 (1.001-1.035); Urine WBC <1 /hpf (0 - 3)
[2021-12-30 06:57] LABS: Basophils # (auto) 0 10 ^3/uL (0-0.2); Basophils % (auto) 0.5 % (0.0-2.0); Eosinophils # (auto) 0 10 ^3/uL (0-0.8); Eosinophils % (auto) 0.5 % (0.0-7.0); Hemoglobin 14.4 g/dL (13.5-17.5); Lymphocytes # (auto) 1.4 10 ^3/uL (0.4-5.4); Lymphocytes % (auto) 25.9 % (10.0-50.0); Mean Corpuscular Hemoglobin 31.1 pg (28.0-32.0); Mean Corpuscular Hgb Conc. 35.1 g/dL (32.0-36.0); Mean Corpuscular Volume 88.7 fL (80.0-100.0); Monocytes # (auto) 0.6 10 ^3/uL (0-1.3); Neutrophils # (auto) 3.4 10 ^3/uL (1.6-8.6); Neutrophils % (auto) 62.1 % (37.0-80.0); Nucleated Red Blood Cells % 0.2 %; Red Blood Cells 4.62 10^6/uL (4.5-5.90); Red Cell Distribution Width 13.7 % (11.8-14.3); White Blood Cell 5.5 10^3/uL (4.4-10.8)
[2021-12-30 07:08] LABS: Albumin 3.3 g/dL (3.4-5.0); Calcium 8.5 mg/dL (8.5-10.1); Magnesium 2.2 mg/dL (1.6-2.6); Potassium 3.8 mmol/L (3.5-5.1)
[2021-12-30 07:11] LABS: BUN/Creatinine Ratio 13.5; Bilirubin, Total 0.3 mg/dL (0.2-1.0); Total Protein 7.5 g/dL (6.4-8.2)
[2021-12-30 07:12] LABS: INR 1.05 (0.9-1.15); Partial Thromboplastin Time 27.2 sec (23.6-33.0)
[2021-12-30] MEDS ORDERED: NITROGLYCERIN 0.4 MG SL TAB SL PRN (08:00)
[2021-12-30] MEDS ORDERED: ONDANSETRON HCL 4 MG/2 ML VIAL IV PRN (08:00)
[2021-12-30] MEDS ORDERED: MORPHINE SULFATE INJECTION 2 MG/ML SYRG IV PRN ×2 (08:00)
[2021-12-30] MEDS ORDERED: HYDROcodone-ACET 5/325MG TAB PO PRN (08:00)
[2021-12-30] MEDS ORDERED: ACETAMINOPHEN 325 MG TAB PO PRN (08:00)
[2021-12-30] MEDS ORDERED: METOCLOPRAMIDE HCL 10 MG TAB PO PRN (08:00)
[2021-12-30] MEDS ORDERED: APIXABAN 5 MG TAB PO SCH (10:00)
[2021-12-30] MEDS ORDERED: PATIENTS OWN MEDICATION (Lisinopril 40 MG) PO SCH (10:00)
[2021-12-30] MEDS ORDERED: LORAZEPAM PO SCH (10:00)
[2021-12-30] MEDS ORDERED: TICAGRELOR 90 MG TAB PO SCH (10:00)
[2021-12-30] MEDS ORDERED: RANOLAZINE ER 500 MG TAB PO SCH ×2 (10:00)
[2021-12-30] MEDS ORDERED: METOPROLOL SUCCINATE XL 50 MG TAB PO SCH ×2 (10:00)
[2021-12-30] MEDS ORDERED: ISOSORBIDE MONONITRATE ER 60 MG TAB PO SCH (10:00)
[2021-12-30] MEDS ORDERED: LORazepam 0.5 MG TAB PO PRN (10:00)
[2021-12-30] MEDS ORDERED: ASPirin-EC 81 mg tab PO SCH (10:00)
[2021-12-30] MEDS ORDERED: ZOLPIDEM TARTRATE 10 MG PO SCH (10:00)
[2021-12-30] MEDS ORDERED: PATIENTS OWN MEDICATION (Divalproex Sodium 250 MG) PO SCH (10:00)
[2021-12-30] MEDS ORDERED: PATIENTS OWN MEDICATION (Bupropion Hcl (Bupropion Hcl Xl) 300 MG) PO SCH (10:00)
[2021-12-30] MEDS ORDERED: INSU100I4 SC (10:09)
[2021-12-30] MEDS ORDERED: DIVA1TAB59 PO (10:09)
[2021-12-30] MEDS ORDERED: INSU1INJ19 SC (10:09)
[2021-12-30] MEDS ORDERED: GABA-339 PO (10:09)
[2021-12-30] MEDS ORDERED: DEXT20CA PO (10:09)
[2021-12-30] MEDS ORDERED: VORT1TAB PO (10:09)
[2021-12-30] MEDS ORDERED: RANO500T2 PO (10:09)
[2021-12-30] MEDS ORDERED: APIX5TAB PO (10:10)
[2021-12-30] MEDS ORDERED: ONDANSETRON ODT 4 MG TAB PO PRN (10:30)
[2021-12-30] MEDS ORDERED: INSULIN LISPRO 14 UNIT SC SCH (11:30)
[2021-12-30 12:00] VITALS: BP 125/81
[2021-12-30] MEDS ORDERED: GABAPENTIN 300 MG CAP PO SCH (14:00)
[2021-12-30] MEDS ORDERED: LURASIDONE HYDROCHLORIDE PO SCH (18:00)
[2021-12-30] MEDS ORDERED: LURASIDONE 40 MG PO SCH (18:00)
[2021-12-30] MEDS ORDERED: ZOLPIDEM TARTRATE 5 MG TAB PO PRN (22:00)
[2021-12-30] MEDS ORDERED: ATORVASTATIN 20 MG TAB PO SCH (22:00)
[2021-12-31] MEDS ORDERED: LISINOPRIL 20 MG TAB PO SCH (10:00)
== END 2021-12-30 12:15 | disposition left against medical advice (07) ==
LOC: ER 05:15
DX: I24.9 Acute ischemic heart disease, unspecified (principal); E78.5 Hyperlipidemia, unspecified; F17.210 Nicotine dependence, cigarettes, uncomplicated; E11.22 Type 2 diabetes mellitus with diabetic chronic kidney disease; I12.9 Hypertensive chronic kidney disease with stage 1 through stage 4 chronic kidney disease, or unspecified chronic kidney disease; N18.9 Chronic kidney disease, unspecified; Z20.822 Contact with and (suspected) exposure to COVID-19
CPT/HCPCS: 36415; 71045; 80053; 81001; 83735; 83880; 84443; 84484; 85025; 85610; 85730; 87426; 93005; 96374; 96375; 96376; 99285; J2270; J2405

== ENCOUNTER 2021-12-31 01:01 | Emergency (ER) | payer MEDICAID ==
[~2021-12-31] VITALS: Ht 175.3 cm; Wt 108.4 kg
[2021-12-31 01:01] VITALS: BP 141/87
[~2021-12-31 01:01] MED LIST changes: -ASPI-543 PO; -BUPR150T8 PO; -BUPR300T28 PO; -BUPRTAB PO; -BUPRTAB3 PO; +DIVA1TAB59 PO; -DIVA250T12 PO; -DIVA500T2 PO; +GABA-339 PO; -GABA300C10 PO; -LORA1TAB23 PO; -METO10TA3 PO; -TICA90TA PO; +VORT1TAB PO; -ZOLP12.569 PO
== END 2021-12-31 01:40 | disposition left against medical advice (07) ==
LOC: ER 01:01
DX: R07.89 Other chest pain (principal); Z53.21 Procedure and treatment not carried out due to patient leaving prior to being seen by health care provider
CPT/HCPCS: 93005

== ENCOUNTER 2022-01-03 23:51 | Emergency (ER) | payer MEDICAID ==
[~2022-01-03] VITALS: Ht 182.9 cm; Wt 122.5 kg
[2022-01-04 02:08] LABS: Basophils # (auto) 0.1 10 ^3/uL (0-0.2); Eosinophils # (auto) 0.1 10 ^3/uL (0-0.8); Eosinophils % (auto) 0.8 % (0.0-7.0); Hemoglobin 14.2 g/dL (13.5-17.5); Lymphocytes # (auto) 1.9 10 ^3/uL (0.4-5.4); Lymphocytes % (auto) 24.8 % (10.0-50.0); Mean Corpuscular Hemoglobin 30.4 pg (28.0-32.0); Mean Corpuscular Hgb Conc. 33.8 g/dL (32.0-36.0); Mean Corpuscular Volume 89.9 fL (80.0-100.0); Monocytes # (auto) 0.5 10 ^3/uL (0-1.3); Monocytes % (auto) 5.9 % (0.0-12.0); Neutrophils # (auto) 5.2 10 ^3/uL (1.6-8.6); Neutrophils % (auto) 67.5 % (37.0-80.0); Nucleated Red Blood Cells % 0.1 %; Red Blood Cells 4.67 10^6/uL (4.5-5.90); Red Cell Distribution Width 13.7 % (11.8-14.3); White Blood Cell 7.7 10^3/uL (4.4-10.8)
[2022-01-04 02:08] LABS: Urine WBC None Seen /hpf (0 - 3)
[2022-01-04] MEDS ORDERED: IOHEXOL 350 MG/ML 100ML IJ ONE (02:11)
[2022-01-04 02:17] LABS: Urine Bacteria NONE SEEN /hpf (None Seen); Urine Blood Negative /uL (Negative); Urine Specific Gravity 1.045 (1.001-1.035)
[2022-01-04 02:25] LABS: Albumin 3.3 g/dL (3.4-5.0); BUN/Creatinine Ratio 12.9; Calcium 8.8 mg/dL (8.5-10.1); Potassium 3.8 mmol/L (3.5-5.1)
[2022-01-04 02:27] LABS: Bilirubin, Total 0.3 mg/dL (0.2-1.0); Total Protein 6.9 g/dL (6.4-8.2)
[2022-01-04] MEDS ORDERED: KETOROLAC TROMETH 30 MG/ML 1ML VIAL IV ONE (02:30)
[2022-01-04 02:39] LABS: INR 1.05 (0.9-1.15)
[2022-01-04] MEDS ORDERED: SODIUM CHLORIDE 0.9% 1,000 ML IV ONE (03:30)
[2022-01-04] MEDS ORDERED: ONDANSETRON HCL 4 MG/2 ML VIAL IV ONE (03:30)
[2022-01-04] MEDS ORDERED: MORPHINE SULFATE 4 MG/ML SYR/VIAL IV ONE (03:30)
[2022-01-04] MEDS ORDERED: MORPHINE SULFATE INJECTION 2 MG/ML SYRG IV ONE (08:30)
[2022-01-04] MEDS ORDERED: APIXABAN 5 MG TAB PO ONE (10:15)
[2022-01-04 10:37] VITALS: BP 148/89
== END 2022-01-04 11:21 | disposition home or self-care (01) ==
LOC: ER 23:51 → EDBD 23:51 → ER 01-04 11:21
DX: R07.9 Chest pain, unspecified (principal); I25.10 Atherosclerotic heart disease of native coronary artery without angina pectoris; I25.2 Old myocardial infarction; I12.9 Hypertensive chronic kidney disease with stage 1 through stage 4 chronic kidney disease, or unspecified chronic kidney disease; E11.22 Type 2 diabetes mellitus with diabetic chronic kidney disease; N18.9 Chronic kidney disease, unspecified; E78.5 Hyperlipidemia, unspecified; F17.210 Nicotine dependence, cigarettes, uncomplicated; Z86.73 Personal history of transient ischemic attack (TIA), and cerebral infarction without residual deficits; Z95.1 Presence of aortocoronary bypass graft; Z79.82 Long term (current) use of aspirin; Z79.899 Other long term (current) drug therapy; Z79.4 Long term (current) use of insulin; Z91.018 Allergy to other foods; Z20.822 Contact with and (suspected) exposure to COVID-19
CPT/HCPCS: 36415; 71045; 71275; 80053; 81001; 83880; 84484; 85025; 85610; 87426; 93005; 96361; 96374; 96375; 96376; 99285; J1885; J2270; J2405; J7030; Q9967

== ENCOUNTER 2022-01-24 21:47 | Emergency (ER) | payer MEDICAID ==
[~2022-01-24] VITALS: Ht 182.9 cm; Wt 122.0 kg
[2022-01-24] MEDS ORDERED: IOHEXOL 350 MG/ML 100ML IJ ONE (22:37)
[2022-01-24 22:40] LABS: Basophils # (auto) 0 10 ^3/uL (0-0.2); Basophils % (auto) 0.3 % (0.0-2.0); Eosinophils # (auto) 0 10 ^3/uL (0-0.8); Eosinophils % (auto) 0.6 % (0.0-7.0); Hematocrit 46.2 % (41.0-53.0); Hemoglobin 16.1 g/dL (13.5-17.5); Lymphocytes # (auto) 2.2 10 ^3/uL (0.4-5.4); Lymphocytes % (auto) 27.5 % (10.0-50.0); Mean Corpuscular Hemoglobin 31.1 pg (28.0-32.0); Mean Corpuscular Hgb Conc. 34.9 g/dL (32.0-36.0); Monocytes # (auto) 0.7 10 ^3/uL (0-1.3); Neutrophils # (auto) 4.9 10 ^3/uL (1.6-8.6); Neutrophils % (auto) 62.6 % (37.0-80.0); Nucleated Red Blood Cells % 0.1 %; Red Blood Cells 5.18 10^6/uL (4.5-5.90); Red Cell Distribution Width 14.5 % (11.8-14.3); White Blood Cell 7.9 10^3/uL (4.4-10.8)
[2022-01-24 22:43] LABS: Urine Bacteria NONE SEEN /hpf (None Seen); Urine Blood Negative /uL (Negative); Urine Specific Gravity 1.037 (1.001-1.035); Urine WBC <1 /hpf (0 - 3)
[2022-01-24 22:56] LABS: Albumin 3.8 g/dL (3.4-5.0); BUN/Creatinine Ratio 14.3; INR 1.04 (0.9-1.15); Partial Thromboplastin Time 26.5 sec (23.6-33.0); Potassium 3.8 mmol/L (3.5-5.1)
[2022-01-24 23:05] LABS: Bilirubin, Total 0.4 mg/dL (0.2-1.0)
[2022-01-24 23:55] VITALS: BP 159/89
== END 2022-01-25 00:10 | disposition left against medical advice (07) ==
LOC: ER 21:47
DX: I63.9 Cerebral infarction, unspecified (principal); E11.65 Type 2 diabetes mellitus with hyperglycemia; E11.22 Type 2 diabetes mellitus with diabetic chronic kidney disease; N18.9 Chronic kidney disease, unspecified; E78.5 Hyperlipidemia, unspecified; F17.210 Nicotine dependence, cigarettes, uncomplicated; Z20.822 Contact with and (suspected) exposure to COVID-19
CPT/HCPCS: 36415; 70450; 70496; 70498; 71045; 80053; 81001; 82962; 83880; 84484; 85025; 85610; 85730; 87426; 93005; 99285; Q9967

== ENCOUNTER 2022-05-08 03:25 | Inpatient (IN) | payer MEDICAID ==
[~2022-05-08] VITALS: Ht 175.3 cm; Wt 114.1 kg
[2022-05-08 04:05] LABS: Basophils # (auto) 0.1 10 ^3/uL (0-0.2); Basophils % (auto) 0.9 % (0.0-2.0); Eosinophils # (auto) 0.1 10 ^3/uL (0-0.8); Eosinophils % (auto) 0.7 % (0.0-7.0); Hematocrit 45.5 % (41.0-53.0); Hemoglobin 15.7 g/dL (13.5-17.5); Lymphocytes # (auto) 3.1 10 ^3/uL (0.4-5.4); Lymphocytes % (auto) 34.2 % (10.0-50.0); Mean Corpuscular Hemoglobin 31.1 pg (28.0-32.0); Mean Corpuscular Hgb Conc. 34.6 g/dL (32.0-36.0); Mean Corpuscular Volume 89.8 fL (80.0-100.0); Monocytes # (auto) 0.6 10 ^3/uL (0-1.3); Monocytes % (auto) 6.8 % (0.0-12.0); Neutrophils # (auto) 5.2 10 ^3/uL (1.6-8.6); Neutrophils % (auto) 57.4 % (37.0-80.0); Nucleated Red Blood Cells % 0.2 %; Red Blood Cells 5.06 10^6/uL (4.5-5.90); Red Cell Distribution Width 13.2 % (11.8-14.3)
[2022-05-08] MEDS ORDERED: SODIUM CHLORIDE 0.9% 2,000 ML IV ONE (04:15)
[2022-05-08 04:24] LABS: Calcium 8.9 mg/dL (8.5-10.1); Magnesium 2.1 mg/dL (1.6-2.6)
[2022-05-08 04:27] LABS: Bilirubin, Total 0.5 mg/dL (0.2-1.0); Total Protein 8.2 g/dL (6.4-8.2)
[2022-05-08 04:28] LABS: Partial Thromboplastin Time 26.5 sec (24.6-33.4)
[2022-05-08] MEDS ORDERED: ONDANSETRON HCL 4 MG/2 ML VIAL IM ONE (04:45)
[2022-05-08] MEDS ORDERED: ASPirin 81 mg TAB PO ONE (04:45)
[2022-05-08 05:15] LABS: Urine Bacteria NONE SEEN /hpf (None Seen); Urine Blood Negative /uL (Negative); Urine Specific Gravity 1.037 (1.001-1.035); Urine WBC <1 /hpf (0 - 3)
[2022-05-08] MEDS ORDERED: MORPHINE SULFATE INJ 2 MG/ml SYRG IV ONE (05:45)
[2022-05-08] MEDS ORDERED: MORPHINE SULFATE INJ 2 MG/ml SYRG IM ONE (06:45)
[2022-05-08] MEDS ORDERED: NITROGLYCERIN 0.4 MG SL TAB SL PRN (07:00)
[2022-05-08] MEDS ORDERED: TEMAZEPAM 15 MG CAP PO PRN (07:00)
[2022-05-08] MEDS ORDERED: ACETAMINOPHEN 325 MG TAB PO PRN (07:00)
[2022-05-08] MEDS: MORPHINE SULFATE INJ 2 MG/ml SYRG IV PRN ×4 (09:15→23:18)
[2022-05-08] MEDS: ONDANSETRON HCL 4 MG/2 ML VIAL IV PRN ×3 (09:16→18:49)
[2022-05-08] MEDS ORDERED: LISINOPRIL 20 MG TAB PO SCH (10:00)
[2022-05-08] MEDS ORDERED: APIXABAN 5 MG TAB PO SCH (10:00)
[2022-05-08] MEDS: RANOLAZINE ER 500 MG TAB PO SCH ×2 (11:38→22:01)
[2022-05-08] MEDS: ISOSORBIDE MONONITRATE ER 60 MG TAB PO SCH (11:38)
[2022-05-08] MEDS: METOPROLOL SUCCINATE XL 50 MG TAB PO SCH (11:41)
[2022-05-08] MEDS ORDERED: MAGNESIUM SULFATE 1GM/100ML 100 ML IV ONE (12:00)
[2022-05-08] MEDS ORDERED: FUROSEMIDE 40 MG/4 ML VIAL IV ONE (12:00)
[2022-05-08] MEDS ORDERED: DEXTROSE (50%) 50ML SYRG IV PRN (12:30)
[2022-05-08] MEDS: GABAPENTIN 400 MG CAP PO SCH ×2 (13:36→22:01)
[2022-05-08] MEDS: InsuLIN REG 1unit/0.01ml Soln (100units/ml) SC SCH ×2 (16:58→22:00)
[2022-05-08] MEDS: ACCU-CHEK COMFORT CURVE STRIP VI SCH ×2 (17:26→21:54)
[2022-05-08] MEDS: FUROSEMIDE 20 MG/2 ML VIAL IV SCH (18:00)
[2022-05-08 22:00] VITALS: BP 96/50
[2022-05-08] MEDS: ENOXAPARIN SOD 120 MG/0.8 ML SYRINGE SC SCH (22:01)
[2022-05-08] MEDS: ATORVASTATIN 20 MG TAB PO SCH (22:01)
[2022-05-08] MEDS: INSULIN LANTUS (GLARGINE) 1 /0.01ml (100units/ml) SC SCH (22:02)
[2022-05-09 05:00] VITALS: BP 95/56
[2022-05-09 05:46] LABS: Basophils # (auto) 0 10 ^3/uL (0-0.2); Basophils % (auto) 0.3 % (0.0-2.0); Eosinophils # (auto) 0.1 10 ^3/uL (0-0.8); Eosinophils % (auto) 0.8 % (0.0-7.0); Hematocrit 39.2 % (41.0-53.0); Hemoglobin 13.7 g/dL (13.5-17.5); Lymphocytes # (auto) 2.1 10 ^3/uL (0.4-5.4); Lymphocytes % (auto) 30.8 % (10.0-50.0); Mean Corpuscular Hemoglobin 31.2 pg (28.0-32.0); Mean Corpuscular Hgb Conc. 34.9 g/dL (32.0-36.0); Mean Corpuscular Volume 89.2 fL (80.0-100.0); Monocytes # (auto) 0.5 10 ^3/uL (0-1.3); Monocytes % (auto) 6.6 % (0.0-12.0); Neutrophils # (auto) 4.3 10 ^3/uL (1.6-8.6); Neutrophils % (auto) 61.5 % (37.0-80.0); Nucleated Red Blood Cells % 0.1 %; Red Blood Cells 4.39 10^6/uL (4.5-5.90); Red Cell Distribution Width 13.6 % (11.8-14.3); White Blood Cell 6.9 10^3/uL (4.4-10.8)
[2022-05-09] MEDS: FUROSEMIDE 20 MG/2 ML VIAL IV SCH ×2 (06:00→18:04)
[2022-05-09 06:06] LABS: Albumin 3.1 g/dL (3.4-5.0); Calcium 8.1 mg/dL (8.5-10.1); Potassium 3.7 mmol/L (3.5-5.1)
[2022-05-09 06:09] LABS: BUN/Creatinine Ratio 17.2; Bilirubin, Total 0.6 mg/dL (0.2-1.0); Total Protein 6.3 g/dL (6.4-8.2)
[2022-05-09] MEDS: GABAPENTIN 400 MG CAP PO SCH ×3 (06:36→22:12)
[2022-05-09] MEDS: ACCU-CHEK COMFORT CURVE STRIP VI SCH ×4 (06:36→22:00)
[2022-05-09] MEDS: MORPHINE SULFATE INJ 2 MG/ml SYRG IV PRN ×6 (06:37→23:00)
[2022-05-09] MEDS: InsuLIN REG 1unit/0.01ml Soln (100units/ml) SC SCH ×4 (06:46→22:04)
[2022-05-09] MEDS ORDERED: ADENOSINE 89 MG in GIVE UN-DILUTED 0 ML IV ONE (08:00)
[2022-05-09 09:00] VITALS: BP 109/69
[2022-05-09 09:02] VITALS: BP 78/77
[2022-05-09] MEDS: METOPROLOL SUCCINATE XL 50 MG TAB PO SCH ×2 (10:00→14:40)
[2022-05-09] MEDS: ISOSORBIDE MONONITRATE ER 60 MG TAB PO SCH (10:00)
[2022-05-09] MEDS: PANTOPRAZOLE 40 MG TAB PO SCH (10:13)
[2022-05-09] MEDS: RANOLAZINE ER 500 MG TAB PO SCH ×2 (10:13→22:11)
[2022-05-09] MEDS: ASPirin 81 mg TAB PO SCH (10:13)
[2022-05-09] MEDS: ENOXAPARIN SOD 120 MG/0.8 ML SYRINGE SC SCH ×2 (10:14→22:09)
[2022-05-09 13:00] VITALS: BP 147/87
[2022-05-09 17:00] VITALS: BP 138/75
[2022-05-09 22:00] VITALS: BP 111/66
[2022-05-09] MEDS: INSULIN LANTUS (GLARGINE) 1 /0.01ml (100units/ml) SC SCH (22:05)
[2022-05-09] MEDS: ATORVASTATIN 20 MG TAB PO SCH (22:11)
[2022-05-10 05:00] VITALS: BP 99/62
[2022-05-10] MEDS: MORPHINE SULFATE INJ 2 MG/ml SYRG IV PRN ×2 (05:07→09:27)
[2022-05-10] MEDS: ACCU-CHEK COMFORT CURVE STRIP VI SCH ×2 (06:30→11:44)
[2022-05-10] MEDS: InsuLIN REG 1unit/0.01ml Soln (100units/ml) SC SCH ×2 (06:32→11:46)
[2022-05-10] MEDS: FUROSEMIDE 20 MG/2 ML VIAL IV SCH (06:35)
[2022-05-10] MEDS: GABAPENTIN 400 MG CAP PO SCH (06:35)
[2022-05-10 09:00] VITALS: BP 121/82
[2022-05-10] MEDS: ONDANSETRON HCL 4 MG/2 ML VIAL IV PRN (09:05)
[2022-05-10] MEDS: ENOXAPARIN SOD 120 MG/0.8 ML SYRINGE SC SCH (09:08)
[2022-05-10] MEDS: PANTOPRAZOLE 40 MG TAB PO SCH (09:09)
[2022-05-10] MEDS: METOPROLOL SUCCINATE XL 50 MG TAB PO SCH (09:10)
[2022-05-10] MEDS: RANOLAZINE ER 500 MG TAB PO SCH (09:11)
[2022-05-10] MEDS: ASPirin 81 mg TAB PO SCH (09:11)
[2022-05-10] MEDS: ISOSORBIDE MONONITRATE ER 60 MG TAB PO SCH (09:13)
[2022-05-10] MEDS ORDERED: LISINOPRIL 20 MG TAB PO SCH (10:00)
[2022-05-10 13:00] VITALS: BP 91/56
[2022-05-10] MEDS ORDERED: INSULIN LANTUS (GLARGINE) 1 /0.01ml (100units/ml) SC SCH (22:00)
== END 2022-05-10 12:40 | disposition home or self-care (01) | DRG 198 ==
LOC: ER 03:27 → TELE 06:56 → TELE-EAST 20:33
PROVIDERS: ADMIT Nurse Practitioner; ATTEND Nurse Practitioner Acute Care
DX: I24.9 Acute ischemic heart disease, unspecified (principal); E11.00 Type 2 diabetes mellitus with hyperosmolarity without nonketotic hyperglycemic-hyperosmolar coma (NKHHC); I13.0 Hypertensive heart and chronic kidney disease with heart failure and stage 1 through stage 4 chronic kidney disease, or unspecified chronic kidney disease; E11.22 Type 2 diabetes mellitus with diabetic chronic kidney disease; I50.9 Heart failure, unspecified; Z79.01 Long term (current) use of anticoagulants; I25.110 Atherosclerotic heart disease of native coronary artery with unstable angina pectoris; E66.9 Obesity, unspecified; E78.5 Hyperlipidemia, unspecified; F17.210 Nicotine dependence, cigarettes, uncomplicated; I25.2 Old myocardial infarction; Z20.822 Contact with and (suspected) exposure to COVID-19; R79.89 Other specified abnormal findings of blood chemistry; N18.9 Chronic kidney disease, unspecified; Z86.718 Personal history of other venous thrombosis and embolism; Z68.37 Body mass index [BMI] 37.0-37.9, adult; Z91.018 Allergy to other foods; Z79.4 Long term (current) use of insulin; Z82.49 Family history of ischemic heart disease and other diseases of the circulatory system; Z83.3 Family history of diabetes mellitus; Z86.711 Personal history of pulmonary embolism; Z86.73 Personal history of transient ischemic attack (TIA), and cerebral infarction without residual deficits; Z95.1 Presence of aortocoronary bypass graft; Z95.5 Presence of coronary angioplasty implant and graft
CPT/HCPCS: 36415; 36600; 71045; 78452; 80053; 81001; 82010; 82805; 82962; 83036; 83735; 83880; 83930; 84484; 85025; 85610; 85730; 93005; 93017; 93306; 96361; 96372; 96374; G0378; J0153; J1815; J2405

== ENCOUNTER 2022-07-21 18:57 | Inpatient (IN) | payer MEDICAID ==
[~2022-07-21] VITALS: Ht 175.3 cm; Wt 103.4 kg
[2022-07-21] MEDS ORDERED: ONDANSETRON HCL 4 MG/2 ML VIAL IV ONE (19:30)
[2022-07-21] MEDS ORDERED: MORPHINE SULFATE 4 MG/ML SYR/VIAL IV ONE (19:30)
[2022-07-21 20:37] LABS: Hematocrit 48.4 % (41.0-53.0); Hemoglobin 16.2 g/dL (13.5-17.5); Mean Corpuscular Hemoglobin 30.6 pg (28.0-32.0); Mean Corpuscular Hgb Conc. 33.6 g/dL (32.0-36.0); Mean Corpuscular Volume 91.1 fL (80.0-100.0); Red Blood Cells 5.31 10^6/uL (4.5-5.90); Red Cell Distribution Width 13.7 % (11.8-14.3); White Blood Cell 9.1 10^3/uL (4.4-10.8)
[2022-07-21 20:39] LABS: Basophils % (manual) 0 (0.0-2.0); Blast Cells 0; Metamyelocytes % 0; Myelocytes % 0; Promyelocytes % 0; Reactive Lymphocytes 0
[2022-07-21 20:53] LABS: Albumin 3.9 g/dL (3.4-5.0); Calcium 9.1 mg/dL (8.5-10.1); Magnesium 1.9 mg/dL (1.6-2.6)
[2022-07-21 20:56] LABS: Bilirubin, Total 0.9 mg/dL (0.2-1.0); Total Protein 7.6 g/dL (6.4-8.2)
[2022-07-21 20:59] LABS: Band Neutrophils % (manual) 1; Eosinophils % (manual) 2 (0-7); Lymphocytes % (manual) 5 (10.0-50.0); Monocytes % (manual) 2 (0-12)
[2022-07-21 21:21] LABS: Urine Bacteria NONE SEEN /hpf (None Seen); Urine Blood Negative /uL (Negative); Urine WBC <1 /hpf (0 - 3)
[2022-07-21] MEDS ORDERED: NITROGLYCERIN 0.4 MG SL TAB SL PRN (22:45)
[2022-07-21] MEDS ORDERED: SODIUM CHLORIDE 0.9% 1,000 ML IV SCH (22:45)
[2022-07-21] MEDS ORDERED: DOCUSATE SOD 100 MG CAP PO PRN (22:45)
[2022-07-21] MEDS ORDERED: MORPHINE SULFATE INJ 2 MG/ml SYRG IV PRN (22:45)
[2022-07-21] MEDS ORDERED: ACETAMINOPHEN 325 MG TAB PO PRN (22:45)
[2022-07-21] MEDS ORDERED: DEXTROSE (50%) 50ML SYRG IV PRN (22:45)
[2022-07-22] MEDS: ACCU-CHEK COMFORT CURVE STRIP VI SCH ×4 (02:16→18:25)
[2022-07-22] MEDS: InsuLIN REG 1unit/0.01ml Soln (100units/ml) SC SCH ×4 (02:20→18:28)
[2022-07-22 03:24] LABS: Basophils # (auto) 0 10 ^3/uL (0-0.2); Basophils % (auto) 0.2 % (0.0-2.0); Eosinophils # (auto) 0 10 ^3/uL (0-0.8); Eosinophils % (auto) 0.7 % (0.0-7.0); Hematocrit 47.6 % (41.0-53.0); Lymphocytes # (auto) 0.4 10 ^3/uL (0.4-5.4); Lymphocytes % (auto) 4.8 % (10.0-50.0); Mean Corpuscular Hemoglobin 30.9 pg (28.0-32.0); Mean Corpuscular Hgb Conc. 33.6 g/dL (32.0-36.0); Mean Corpuscular Volume 92.1 fL (80.0-100.0); Monocytes # (auto) 0.5 10 ^3/uL (0-1.3); Monocytes % (auto) 7.1 % (0.0-12.0); Neutrophils # (auto) 6.5 10 ^3/uL (1.6-8.6); Neutrophils % (auto) 87.2 % (37.0-80.0); Nucleated Red Blood Cells % 0.1 %; Red Blood Cells 5.17 10^6/uL (4.5-5.90); Red Cell Distribution Width 13.9 % (11.8-14.3); White Blood Cell 7.5 10^3/uL (4.4-10.8)
[2022-07-22 03:31] LABS: Potassium 4.2 mmol/L (3.5-5.1)
[2022-07-22 03:38] LABS: Albumin 3.9 g/dL (3.4-5.0); BUN/Creatinine Ratio 15.7; Bilirubin, Total 1.7 mg/dL (0.2-1.0); Calcium 8.9 mg/dL (8.5-10.1)
[2022-07-22] MEDS: ONDANSETRON HCL 4 MG/2 ML VIAL IV PRN ×3 (05:36→14:35)
[2022-07-22] MEDS: MORPHINE SULFATE INJ 2 MG/ml SYRG IV PRN ×3 (05:37→14:38)
[2022-07-22] MEDS: ASPirin 81 mg TAB PO SCH (09:50)
[2022-07-22] MEDS: guaiFENesin-DM 100/10mg/5ml SYR PO PRN (15:22)
[2022-07-22] MEDS ORDERED: IBUPROFEN 600 MG TAB PO PRN (15:30)
[2022-07-22] MEDS: HYDROcodone-ACET 5/325MG TAB PO PRN (18:45)
[2022-07-22] MEDS: ATORVASTATIN 20 MG TAB PO SCH (22:00)
[2022-07-23] MEDS: MORPHINE SULFATE INJ 2 MG/ml SYRG IV PRN ×4 (00:12→14:11)
[2022-07-23] MEDS: InsuLIN REG 1unit/0.01ml Soln (100units/ml) SC SCH ×4 (00:21→18:22)
[2022-07-23] MEDS: ACCU-CHEK COMFORT CURVE STRIP VI SCH ×5 (00:22→23:55)
[2022-07-23] MEDS: ONDANSETRON HCL 4 MG/2 ML VIAL IV PRN ×2 (04:31→09:23)
[2022-07-23] MEDS: guaiFENesin-DM 100/10mg/5ml SYR PO PRN ×3 (09:29→23:43)
[2022-07-23] MEDS: ASPirin 81 mg TAB PO SCH (10:16)
[2022-07-23 13:00] VITALS: BP_SYST 105; BP_SYST 122; BP_DIAS 60; BP_DIAS 81
[2022-07-23 16:42] VITALS: BP 144/84
[2022-07-23] MEDS ORDERED: PANTOPRAZOLE 40 MG TAB PO ONE (19:30)
[2022-07-23] MEDS ORDERED: METOPROLOL SUCCINATE XL 50 MG TAB PO ONE (19:30)
[2022-07-23] MEDS: HYDROcodone-ACET 5/325MG TAB PO PRN (19:42)
[2022-07-23] MEDS ORDERED: ISOSORBIDE MONONITRATE ER 60 MG TAB PO ONE (19:45)
[2022-07-23 20:00] VITALS: BP 123/76
[2022-07-23] MEDS: NYSTATIN (MOUTH-THROAT) 500,000 UNITS/5 ML SUSP MT SCH (21:26)
[2022-07-23] MEDS: GABAPENTIN 300 MG CAP PO SCH (21:28)
[2022-07-23] MEDS: ATORVASTATIN 20 MG TAB PO SCH (21:28)
[2022-07-23 23:19] VITALS: BP 123/76
[2022-07-23] MEDS: HYDROcodone-ACET 10/325MG TAB PO PRN (23:44)
[2022-07-24] VITALS (7 sets, daily range): BP systolic 92–134; BP diastolic 55–89
[2022-07-24] MEDS: InsuLIN REG 1unit/0.01ml Soln (100units/ml) SC SCH ×5 (00:01→23:48)
[2022-07-24] MEDS: INSULIN LANTUS (GLARGINE) 1 /0.01ml (100units/ml) SC SCH ×2 (00:02→23:47)
[2022-07-24] MEDS: HYDROcodone-ACET 10/325MG TAB PO PRN ×4 (05:32→23:46)
[2022-07-24] MEDS: GABAPENTIN 300 MG CAP PO SCH ×3 (05:32→22:31)
[2022-07-24] MEDS: NYSTATIN (MOUTH-THROAT) 500,000 UNITS/5 ML SUSP MT SCH ×4 (05:32→22:00)
[2022-07-24] MEDS: ACCU-CHEK COMFORT CURVE STRIP VI SCH ×4 (06:17→23:48)
[2022-07-24] MEDS: guaiFENesin-DM 100/10mg/5ml SYR PO PRN ×2 (06:30→23:46)
[2022-07-24] MEDS: METOPROLOL SUCCINATE XL 50 MG TAB PO SCH (09:17)
[2022-07-24] MEDS: ASPirin 81 mg TAB PO SCH (09:17)
[2022-07-24] MEDS: PANTOPRAZOLE 40 MG TAB PO SCH (09:17)
[2022-07-24] MEDS: ISOSORBIDE MONONITRATE ER 60 MG TAB PO SCH (09:18)
[2022-07-24] MEDS ORDERED: PATIENTS OWN MEDICATION PO SCH ×2 (10:00)
[2022-07-24] MEDS ORDERED: ENOXAPARIN SOD 40 MG/0.4 ML SYRINGE SC ONE (11:30)
[2022-07-24] MEDS: glipiZIDE 5 MG TAB PO SCH (17:42)
[2022-07-24] MEDS ORDERED: metFORMIN HYDROCHLORIDE 500 MG TAB PO SCH (18:00)
[2022-07-24] MEDS: OSELTAMIVIR 75 MG CAP PO SCH (21:06)
[2022-07-24] MEDS: DEXTROMETHORPHAN PO SCH (22:00)
[2022-07-24] MEDS: QUINIDINE PO SCH (22:00)
[2022-07-24] MEDS: [UNRECOGNIZED DRUG - OTHER] PO SCH (22:00)
[2022-07-24] MEDS: ATORVASTATIN 20 MG TAB PO SCH (22:31)
[2022-07-25] VITALS (9 sets, daily range): BP systolic 94–142; BP diastolic 54–81
[2022-07-25] MEDS: ALBUTEROL SULF 2.5 MG/0.5ML(0.5%) NEB SOLN NEB SCH ×4 (00:32→18:39)
[2022-07-25] MEDS: IPRATROPIUM BROM 0.5 MG/2.5ML INH SOL NEB SCH ×4 (00:32→18:39)
[2022-07-25] MEDS ORDERED: MELATONIN 5 MG TAB PO SCH (01:00)
[2022-07-25] MEDS: glipiZIDE 5 MG TAB PO SCH ×3 (05:46→20:11)
[2022-07-25] MEDS: InsuLIN REG 1unit/0.01ml Soln (100units/ml) SC SCH ×4 (05:46→20:12)
[2022-07-25] MEDS: NYSTATIN (MOUTH-THROAT) 500,000 UNITS/5 ML SUSP MT SCH ×5 (05:47→22:00)
[2022-07-25] MEDS: GABAPENTIN 300 MG CAP PO SCH ×3 (06:00→20:10)
[2022-07-25] MEDS: ACCU-CHEK COMFORT CURVE STRIP VI SCH ×3 (06:04→18:49)
[2022-07-25 06:07] LABS: Basophils # (auto) 0 10 ^3/uL (0-0.2); Basophils % (auto) 0.5 % (0.0-2.0); Eosinophils # (auto) 0.1 10 ^3/uL (0-0.8); Lymphocytes # (auto) 1.7 10 ^3/uL (0.4-5.4); Monocytes # (auto) 0.5 10 ^3/uL (0-1.3); Neutrophils # (auto) 1.4 10 ^3/uL (1.6-8.6); White Blood Cell 3.7 10^3/uL (4.4-10.8)
[2022-07-25] MEDS: HYDROcodone-ACET 10/325MG TAB PO PRN ×3 (06:10→21:36)
[2022-07-25 06:12] LABS: Eosinophils % (auto) 3.5 % (0.0-7.0); Hematocrit 41.8 % (41.0-53.0); Hemoglobin 14.3 g/dL (13.5-17.5); Lymphocytes % (auto) 44.5 % (10.0-50.0); Mean Corpuscular Hemoglobin 30.9 pg (28.0-32.0); Mean Corpuscular Hgb Conc. 34.3 g/dL (32.0-36.0); Mean Corpuscular Volume 90.1 fL (80.0-100.0); Monocytes % (auto) 13.1 % (0.0-12.0); Neutrophils % (auto) 38.4 % (37.0-80.0); Nucleated Red Blood Cells % 0.3 %; Red Blood Cells 4.63 10^6/uL (4.5-5.90); Red Cell Distribution Width 13.6 % (11.8-14.3)
[2022-07-25 06:18] LABS: INR 1.01 (0.9-1.15); Partial Thromboplastin Time 27.3 sec (24.6-33.4)
[2022-07-25 06:28] LABS: Potassium 3.4 mmol/L (3.5-5.1)
[2022-07-25 06:31] LABS: BUN/Creatinine Ratio 20.3; Calcium 8.4 mg/dL (8.5-10.1)
[2022-07-25] MEDS: ISOSORBIDE MONONITRATE ER 60 MG TAB PO SCH (09:54)
[2022-07-25] MEDS: ASPirin 81 mg TAB PO SCH (09:54)
[2022-07-25] MEDS: LISINOPRIL 5 MG TAB PO SCH (09:55)
[2022-07-25] MEDS: OSELTAMIVIR 75 MG CAP PO SCH ×2 (09:55→20:10)
[2022-07-25] MEDS: PANTOPRAZOLE 40 MG TAB PO SCH (09:55)
[2022-07-25] MEDS: METOPROLOL SUCCINATE XL 50 MG TAB PO SCH (09:55)
[2022-07-25] MEDS: ENOXAPARIN SOD 40 MG/0.4 ML SYRINGE SC SCH (09:56)
[2022-07-25] MEDS: QUINIDINE PO SCH ×2 (09:56→20:09)
[2022-07-25] MEDS: [UNRECOGNIZED DRUG - OTHER] PO SCH ×2 (09:56→20:09)
[2022-07-25] MEDS: DEXTROMETHORPHAN PO SCH ×2 (09:56→20:09)
[2022-07-25] MEDS ORDERED: POTASSIUM EFFERVESENT TAB 25 MEQ PO ONE (11:00)
[2022-07-25] MEDS ORDERED: MORPHINE SULFATE INJ 2 MG/ml SYRG IM ONE (15:00)
[2022-07-25] MEDS ORDERED: VERAPAMIL 2.5MG/ML INJ 2ML VIAL IV ONE (17:07)
[2022-07-25] MEDS ORDERED: ANGIOMAX 250 MG VIAL IV ONE (17:07)
[2022-07-25] MEDS ORDERED: HEPARIN SODIUM (PORCINE) 5000 UNITS/ML 1ML VIAL ONE (17:07)
[2022-07-25] MEDS ORDERED: fentaNYL CITRATE 100 MCG/2 ML VL ONE (17:07)
[2022-07-25] MEDS ORDERED: SODIUM CHL 0.9% 0 ML ONE (17:08)
[2022-07-25] MEDS ORDERED: MIDAZOLAM HCL 2MG/2ML 2ml VIAL (1mg/ml) ONE (17:08)
[2022-07-25] MEDS ORDERED: LIDOCAINE 2%HCL (LOCAL ANESTH.) INJ 10ml MDV ONE (17:08)
[2022-07-25] MEDS ORDERED: ONDANSETRON HCL 4 MG/2 ML VIAL ONE (17:49)
[2022-07-25] MEDS: RANOLAZINE ER 500 MG TAB PO SCH (18:50)
[2022-07-25] MEDS: ATORVASTATIN 20 MG TAB PO SCH (20:09)
[2022-07-25] MEDS: INSULIN LANTUS (GLARGINE) 1 /0.01ml (100units/ml) SC SCH (20:12)
[2022-07-26] MEDS: InsuLIN REG 1unit/0.01ml Soln (100units/ml) SC SCH ×4 (00:53→17:48)
[2022-07-26] MEDS: HYDROcodone-ACET 10/325MG TAB PO PRN ×3 (03:34→16:00)
[2022-07-26 05:00] VITALS: BP 119/70
[2022-07-26] MEDS ORDERED: MORPHINE SULFATE INJ 2 MG/ml SYRG IV ONE (05:45)
[2022-07-26] MEDS: NYSTATIN (MOUTH-THROAT) 500,000 UNITS/5 ML SUSP MT SCH ×4 (06:00→17:45)
[2022-07-26] MEDS: ACCU-CHEK COMFORT CURVE STRIP VI SCH ×4 (06:12→18:11)
[2022-07-26] MEDS: glipiZIDE 5 MG TAB PO SCH ×2 (06:12→17:52)
[2022-07-26] MEDS: RANOLAZINE ER 500 MG TAB PO SCH ×2 (06:12→19:00)
[2022-07-26] MEDS: GABAPENTIN 300 MG CAP PO SCH ×2 (06:12→15:07)
[2022-07-26] MEDS: IPRATROPIUM BROM 0.5 MG/2.5ML INH SOL NEB SCH ×3 (06:39→18:48)
[2022-07-26] MEDS: ALBUTEROL SULF 2.5 MG/0.5ML(0.5%) NEB SOLN NEB SCH ×3 (06:40→18:48)
[2022-07-26 09:00] VITALS: BP 126/73
[2022-07-26] MEDS: QUINIDINE PO SCH (09:06)
[2022-07-26] MEDS: [UNRECOGNIZED DRUG - OTHER] PO SCH (09:06)
[2022-07-26] MEDS: DEXTROMETHORPHAN PO SCH (09:06)
[2022-07-26] MEDS: ASPirin 81 mg TAB PO SCH (09:53)
[2022-07-26] MEDS: ISOSORBIDE MONONITRATE ER 60 MG TAB PO SCH (09:54)
[2022-07-26] MEDS: ENOXAPARIN SOD 40 MG/0.4 ML SYRINGE SC SCH (09:54)
[2022-07-26] MEDS: PANTOPRAZOLE 40 MG TAB PO SCH (09:54)
[2022-07-26] MEDS: OSELTAMIVIR 75 MG CAP PO SCH (09:54)
[2022-07-26] MEDS: LISINOPRIL 5 MG TAB PO SCH (09:54)
[2022-07-26] MEDS: METOPROLOL SUCCINATE XL 50 MG TAB PO SCH (09:55)
[2022-07-26 13:00] VITALS: BP 127/78
[2022-07-26 16:27] VITALS: BP 107/57
[2022-07-26 18:33] VITALS: BP 126/73
== END 2022-07-26 20:15 | disposition home or self-care (01) | DRG 191 ==
LOC: EDBD 18:57 → ER 18:57 → TELE 22:54 → TELE-WESTW 07-23 12:07
PROVIDERS: ADMIT Nurse Practitioner Family; ATTEND Student in an Organized Health Care Education/Training Program
PROC: 4A023N7 Measurement of Cardiac Sampling and Pressure, Left Heart, Percutaneous Approach (ICD-10-PCS; principal; 2022-07-25)
PROC: B211YZZ Fluoroscopy of Multiple Coronary Arteries using Other Contrast (ICD-10-PCS; 2022-07-25)
PROC: B215YZZ Fluoroscopy of Left Heart using Other Contrast (ICD-10-PCS; 2022-07-25)
PROC: B218YZZ Fluoroscopy of Left Internal Mammary Bypass Graft using Other Contrast (ICD-10-PCS; 2022-07-25)
DX: I25.10 Atherosclerotic heart disease of native coronary artery without angina pectoris (principal); B37.0 Candidal stomatitis; E11.22 Type 2 diabetes mellitus with diabetic chronic kidney disease; E11.40 Type 2 diabetes mellitus with diabetic neuropathy, unspecified; E11.65 Type 2 diabetes mellitus with hyperglycemia; E78.5 Hyperlipidemia, unspecified; F17.210 Nicotine dependence, cigarettes, uncomplicated; I12.9 Hypertensive chronic kidney disease with stage 1 through stage 4 chronic kidney disease, or unspecified chronic kidney disease; K21.9 Gastro-esophageal reflux disease without esophagitis; N18.9 Chronic kidney disease, unspecified; Z20.822 Contact with and (suspected) exposure to COVID-19; G89.29 Other chronic pain; E66.9 Obesity, unspecified; J10.1 Influenza due to other identified influenza virus with other respiratory manifestations; I25.2 Old myocardial infarction; Z86.16 Personal history of COVID-19; Z86.711 Personal history of pulmonary embolism; Z86.73 Personal history of transient ischemic attack (TIA), and cerebral infarction without residual deficits; Z95.1 Presence of aortocoronary bypass graft; Z88.8 Allergy status to other drugs, medicaments and biological substances; Z91.018 Allergy to other foods; Z79.4 Long term (current) use of insulin; Z79.01 Long term (current) use of anticoagulants; Z79.82 Long term (current) use of aspirin; Z79.899 Other long term (current) drug therapy; Z82.3 Family history of stroke; Z82.49 Family history of ischemic heart disease and other diseases of the circulatory system; Z83.3 Family history of diabetes mellitus; Z91.14 Patient's other noncompliance with medication regimen; Z98.61 Coronary angioplasty status; Z68.32 Body mass index [BMI] 32.0-32.9, adult
CPT/HCPCS: 36415; 70450; 71045; 80048; 80053; 81001; 82962; 83036; 83735; 83880; 84484; 85007; 85025; 85027; 85610; 85730; 86850; 86900; 86901; 87426; 87804; 93005; 93458; 94640; 95819; 96361; 96374; 96375; G0378; J1815; J2001; J2250; J2405

== ENCOUNTER 2024-08-05 15:51 | Inpatient (IN) | payer MEDICAID ==
[~2024-08-05] VITALS: Ht 175.3 cm; Wt 107.9 kg
[~2024-08-05 15:51] MED LIST changes: -APIX5TAB PO; +ASPI81CH59 PO; +ATOR-507 PO; +FLUO40CA PO; +GABA-1251 PO; +INSU100I54 SC; +INSUINJ37 SC; -ISOS60TA24 PO; -LISI40TA11 PO; -LORA0.5T20 PO; -LURA40TA PO; +LURA40TA3 PO; -ONDA-144 PO; +ONDA-188 PO; -RANO500T2 PO; +TICA90TA PO; -VORT1TAB PO; -ZOLP10TA PO; +ZOLP10TA6 PO
--- NOTE | 2024-08-05 16:16 | ED.PDOC ---
HPI Comments 49 year old male MIKE presents to the ED with chief complaint of chest pain. Patient reports that he has been experiencing chest pain with associated nausea and vomiting since last night around 6:30pm. Patient relays that he called 911, but is unsure if he was able to reach them as no one came to the house and he had slept through the night. Patient states his pain continued today so he had taken 3 doses of NTG and 6 doses of 81mg Aspirin. Patient notes he reportedly was admitted for one week 2 weeks ago at [facility] due to having an NSTEMI. Patient denies any diarrhea, fever, chills, SOB, cough, or headache. Time Seen by MD: 16:08 Primary Care Provider: PIPEO Reviewed Notes: Nurses Notes, Roughener Notes, Medications, Allergies Allergies: Coded Allergies: Ketorolac Tromethamine (Verified Allergy, Severe, 01/04/22) Pineapple (Verified Allergy, Severe, SWELLING, 12/26/21) Uncoded Allergies: BROCCOLI (Allergy, Severe, SWELLING, 12/26/21) COCONUT (Allergy, Severe, SWELLING, 12/26/21) Home Meds Active Scripts Insulin Lispro (Humalog Kwikpen) 100 Unit/Ml Inj, 14 UNIT SC TIDAC for 30 Days INJECT 30 UNITS SC THREE TIMES PER DAY BEFORE MEALS Prov:Aminata Hurley 12/30/21 Insulin Glargine (Basaglar Kwikpen) 100 Unit/Ml Inj, 0 SC BID for 30 Days INJECT 60 UNITS SC TID Prov:Aminata Hurley 12/30/21 Reported Medications Gabapentin (Gabapentin) 600 Mg Tab, 1 TAB PO TID, #90 TAB 3 Refills 12/30/21 Metoprolol Succinate (Metoprolol Succinate Er) 50 Mg Tab, 50 MG PO DAILY for 30 Days, MG 10/23/21 Atorvastatin Calcium (ATORVASTATIN CALCIUM) 80 Mg Tab, 80 TAB PO HS 10/25/20 Information Source: Patient, Emergency Med Personnel Mode of Arrival: EMS Severity: Moderate Timing: Days Duration: Since onset Prehospital treatment: None Location: Chest (L) Radiation: No Radiation Quality: Pressure Onset: At Rest Cardiac Risk Factors: Smoker, HTN, Diabetes PE Risk Factors: None History of: Similar pain in past Past Medical History PAST MEDICAL HISTORY: CAD, CKF, CVA, DM, High Lipids, CO, PE, TIA Surgical History: CABG, Hernia Repair, PTCA Family History Family History: Reviewed,noncontributory to illness, Family hx of DM, Family hx of HTN Social History Smoker: Cigarettes, Less Than 1 Pack/Day Alcohol: Rarely Drugs: Denies Drug Use Lives In: Home Constitutional: denies: chills, diaphoresis, fatigue, fever, malaise, sweats, weakness, others EENTM: denies: blurred vision, double vision, ear bleeding, ear discharge, ear drainage, ear pain, ear ringing, eye pain, eye redness, hearing loss, mouth pain, mouth swelling, nasal discharge, nose bleeding, nose congestion, nose pain, photophobia, tearing, throat pain, throat swelling, voice changes, others Respiratory: denies: cough, hemoptysis, orthopnea, SOB at rest, shortness of breath, SOB with excertion, stridor, wheezing, others Cardiovascular: denies: chest pain, dizzy spells, diaphoresis, Dyspnea on exertion, edema, irregular heart beat, left arm pain, lightheadedness, palpitations, PND, syncope, others Gastrointestinal: denies: abdomen distended, abdominal pain, blood streaked bowels, constipated, diarrhea, dysphagia, difficulty swallowing, hematemesis, melena, nausea, poor appetite, poor fluid intake, rectal bleeding, rectal pain, vomiting, others Genitourinary: denies: burning, dysuria, flank pain, frequency, hematuria, incontinence, penile discharge, penile sore, pain, testicle pain, testicle swelling, urgency, others Neurological: denies: dizziness, fainting, headache, left sided numbness, left sided weakness, numbness, paresthesia, pre-existing deficit, right sided numbness, right sided weakness, seizure, speech problems, tingling, tremors, weakness, others Musculoskeletal: reports: others (Left elbow and wrist pain, redness, and swelling); denies: back pain, gout, joint pain, joint swelling, muscle pain, muscle stiffness, neck pain Integumetry: denies: bruises, change in color, change in hair/nails, dryness, laceration, lesions, lumps, rash, wounds, others Allergic/Immunocompromised: denies: Difficulty Healing, Frequent Infections, Hives, Itching, others Hematologic/Lymphatic: denies: anemia, blood clots, easy bleeding, easy bruising, swollen glands, others Endocrine: denies: excessive hunger, excessive sweating, excessive thirst, excessive urination, flushing, intolerance to cold, intolerance to heat, unexplained weight gain, unexplained weight loss, others Psychiatric: denies: anxiety, bipolar disorder, depression, hopeless, panic disorder, schizophrenia, sleepless, suicidal, others All Other Systems: Reviewed and Negative Physical Exam General Appearance: Moderate Distress HEENT: Normal ENT Inspection, Pharynx Normal, TMs Normal Neck: Full Range of Motion, Non-Tender, Normal, Normal Inspection Respiratory: Chest Non-Tender, Lungs Clear, No Accessory Muscle Use, No Respiratory Distress, Normal Breath Sounds Cardiovascular: No Edema, No JVD, No Murmur, No Gallop, Normal Peripheral Pulses, Regular Rate/Rhythm Breast Exam: Deferred Gastrointestinal: No Organomegaly, Non Tender, No Pulsatile Mass, Normal Bowel Sounds, Soft Genitalia: Deferred Pelvic: Deferred Rectal: Deferred Extremities: No calf tenderness, Normal capillary refill, Normal inspection, Normal range of motion, Non-tender, No pedal edema Musculoskeletal : Apperance: Normal Neurologic: Alert, product analyst II-XII nml as Tested, Motor Weakness, Normal Affect, Normal Mood, No Sensory Deficits Cerebellar Function: Normal Reflexes: Normal Skin: Dry, Normal Color, Warm Lymphatic: No Adenopathy EKG EKG : Pulse Rate (adult): 86 [place]: Normal Cardiac Rhythm: NSR Block: None Hypertrophy: LAE, LVH ST: Normal Was a procedure done? Was a procedure done?: No CP Differential Dx Differential Diagnosis: Angina, CO, Pulmonary Embolus Differential Diagnosis: CHF Differential Diagnosis: Pericarditis X-Ray, Labs, Meds, VS Vital Signs Date Time Temp Pulse Resp B/P (MAP) Pulse Ox O2 Delivery O2 Flow Rate FiO2 08/05/24 17:00 88 08/05/24 16:16 86 08/05/24 16:04 86 08/05/24 15:56 99.2 86 18 124/95 (105) 96 Lab Test 08/05/24 17:09 08/05/24 16:10 Range/Units Troponin I High Sensitivity < 3 L < 3 L </=54 ng/L White Blood Count 6.0 4.4-10.8 10^3/uL Red Blood Count 4.73 4.5-5.90 10^6/uL Hemoglobin 13.7 13.5-17.5 g/dL Hematocrit 40.8 L 41.0-53.0 % Mean Corpuscular Volume 86.2 80.0-100.0 fL Mean Corpuscular Hemoglobin 29.0 28.0-32.0 pg Mean Corpuscular Hemoglobin Concent 33.7 32.0-36.0 g/dL Red Cell Distribution Width 14.1 11.8-14.3 % Platelet Count 139 L 140-450 10^3/uL Mean Platelet Volume 8.8 6.9-10.8 fL Neutrophils (%) (Auto) 54.3 37.0-80.0 % Lymphocytes (%) (Auto) 35.4 10.0-50.0 % Monocytes (%) (Auto) 8.3 0.0-12.0 % Eosinophils (%) (Auto) 1.6 0.0-7.0 % Basophils (%) (Auto) 0.4 0.0-2.0 % Neutrophils # (Auto) 3.3 1.6-8.6 10 ^3/uL Lymphocytes # (Auto) 2.1 0.4-5.4 10 ^3/uL Monocytes # (Auto) 0.5 0-1.3 10 ^3/uL Eosinophils # (Auto) 0.1 0-0.8 10 ^3/uL Basophils # (Auto) 0 0-0.2 10 ^3/uL Nucleated Red Blood Cells 0.3 % Sodium Level 137 136-145 mmol/L Potassium Level 5.2 H 3.5-5.1 mmol/L Chloride Level 103 98-107 mmol/L Carbon Dioxide Level 28 20-31 mmol/L Anion Gap 6 5-15 Blood Urea Nitrogen 7 L 9-23 mg/dL Creatinine 0.96 0.700-1.30 mg/dL Glomerular Filtration Rate Calc 98 >90 mL/min BUN/Creatinine Ratio 7.3 L 10.0-20.0 Serum Glucose 366 H 74-106 mg/dL Calcium Level 9.4 8.7-10.4 mg/dL Chest XR indicates: Mild congestion The CBC is within normal limits The chemistry panel shows hyperglycemia at 366 The potassium is 5.2 The troponin level is negative The repeat troponin level is negative At this time, the patient is being admitted to the hospitalist The patient was being given morphine for the pain and Zofran for the nausea A cardiology consult will be obtained. Images Reviewed?: Images reviewed and evaluated by me Time of 1ST Reevaluation: 19:02 Reevaluation 1ST: Unchanged Patient Education/Counseling: Diagnosis, Treatment, Prognosis Family Education/Counseling: No Family Present Departure 1 Departure Time of Disposition: 19:02 Impression: Primary Impression: Acute coronary syndrome Disposition: 09 ADMITTED INPATIENT Admit to: Tele Condition: Fair Critical Care Note Critical Care Time?: Yes (35 min-critical care time only) Stability Stability form required: Yes Unstable for transfer: Telemetry monitoring (Telemetry monitoring required), ED Physician Assesment (Clinical assesment) Heart Score Heart Score: Heart Score Response (Comments) Value History Moderate Suspicious [address]-Deviation 2 Age 45-64 1 Risk Factors >3 or Hx ASHD 2 Troponin Normal limit 0 Total 6 I personally scribed for ANNMARIE CAPONE MD ([email or web address]) on 08/05/24 at 16:16. Electronically submitted by Mukul Díaz ([email or web address]). I personally scribed for ANNMARIE CAPONE MD ([email or web address]) on 08/05/24 at 16:56. Electronically submitted by Mukul Díaz ([email or web address]). ANNMARIE CAPONE MD Aug 05, 2024 16:16
[2024-08-05 16:30] LABS: Basophils # (auto) 0 10 ^3/uL (0-0.2); Basophils % (auto) 0.4 % (0.0-2.0); Eosinophils # (auto) 0.1 10 ^3/uL (0-0.8); Eosinophils % (auto) 1.6 % (0.0-7.0); Hematocrit 40.8 % (41.0-53.0); Hemoglobin 13.7 g/dL (13.5-17.5); Lymphocytes # (auto) 2.1 10 ^3/uL (0.4-5.4); Lymphocytes % (auto) 35.4 % (10.0-50.0); Mean Corpuscular Hgb Conc. 33.7 g/dL (32.0-36.0); Mean Corpuscular Volume 86.2 fL (80.0-100.0); Monocytes # (auto) 0.5 10 ^3/uL (0-1.3); Monocytes % (auto) 8.3 % (0.0-12.0); Neutrophils # (auto) 3.3 10 ^3/uL (1.6-8.6); Neutrophils % (auto) 54.3 % (37.0-80.0); Nucleated Red Blood Cells % 0.3 %; Platelet Count (auto) 139 10^3/uL (140-450); Red Blood Cells 4.73 10^6/uL (4.5-5.90); Red Cell Distribution Width 14.1 % (11.8-14.3)
--- NOTE | 2024-08-05 16:45 | DVH ---
CHEST RADIOGRAPH Indication: cp Technique: Single frontal view of the chest was obtained COMPARISON: CHEST PORTABLE on DOS: 07/21/22, CXRP on DOS: 07/21/22, CXR1 on DOS: 05/08/22 FINDINGS: Lines and Tubes: Median sternotomy Lungs: Mild congestion Pleura: No effusion. No pneumothorax. Cardiomediastinal contours: Unremarkable Bones: Unremarkable IMPRESSION: Mild congestion
[2024-08-05 16:47] LABS: Chloride 103 mmol/L (98-107); Sodium 137 mmol/L (136-145)
[2024-08-05 16:48] LABS: Anion Gap 6 (5-15); Calcium 9.4 mg/dL (8.7-10.4); Carbon Dioxide 28 mmol/L (20-31)
[2024-08-05 16:53] LABS: BUN/Creatinine Ratio 7.3 (10.0-20.0)
--- NOTE | 2024-08-05 17:02 | ECG ---
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
[2024-08-05 17:04] LABS: Blood Urea Nitrogen 7 mg/dL (9-23); Glucose 366 mg/dL (74-106); Potassium 5.2 mmol/L (3.5-5.1)
[2024-08-05 18:00] VITALS: PULSE 86; RESP 17; O2SAT 96
[2024-08-05] MEDS: ONDANSETRON HCL 4 MG/2 ML VIAL IV ONE (19:42)
[2024-08-05] MEDS: MORPHINE SULFATE 4 MG/ML SYR/VIAL IV ONE (19:43)
[2024-08-05] MEDS ORDERED: DEXTROSE (50%) 50ML SYRG IV PRN (21:45)
[2024-08-05] MEDS ORDERED: NITROGLYCERIN 0.4 MG SL TAB SL PRN (21:45)
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
[2024-08-05 22:27] LABS: Alanine Aminotransferase 27 U/L (7-40); Albumin 4.5 g/dL (3.2-4.8); Anion Gap 9 (5-15); Aspartate Aminotransferase 17 U/L (13-40); BUN/Creatinine Ratio 7.3 (10.0-20.0); Bilirubin, Total 0.4 mg/dL (0.2-1.0); Calcium 9.7 mg/dL (8.7-10.4); Carbon Dioxide 26 mmol/L (20-31); Chloride 104 mmol/L (98-107); Cholesterol 177 mg/dL (< 200); HDL Cholesterol 47 mg/dL (40-59); Potassium 4.6 mmol/L (3.5-5.1); Sodium 139 mmol/L (136-145); Triglycerides 110 mg/dL (< 150)
[2024-08-05 22:28] LABS: Total Protein 7.9 g/dL (5.7-8.2)
[2024-08-05 22:46] LABS: Alkaline Phosphatase 170 U/L (46-116); Blood Urea Nitrogen 7 mg/dL (9-23); Glucose 305 mg/dL (74-106); LDL Cholesterol 118 mg/dL (< 100)
--- NOTE | 2024-08-05 22:48 | ECG ---
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
[2024-08-05] MEDS: ASPirin 81 mg TAB PO ONE (23:29)
[2024-08-05] MEDS: METOPROLOL SUCCINATE XL 50 MG TAB PO ONE (23:30)
[2024-08-05] MEDS: TICAGRELOR 90 MG TAB PO SCH (23:30)
[2024-08-05] MEDS: ATORVASTATIN 20 MG TAB PO SCH (23:31)
[2024-08-05] MEDS: MORPHINE SULFATE INJ 2 MG/ml SYRG IV PRN (23:32)
[2024-08-05] MEDS: NITROGLYCERIN 0.4 MG SL TAB SL ONE (23:34)
[2024-08-06] VITALS (12 sets, daily range): BP systolic 128–160; BP diastolic 72–100; PULSE 53–67; RESP 11–98; TEMP 97.7–98.1; O2SAT 93–100
[2024-08-06] MEDS: InsuLIN REG 1unit/0.01ml Soln (100units/ml) IV ONE (00:30)
[2024-08-06] MEDS: ACCU-CHEK COMFORT CURVE STRIP VI SCH (00:30)
[2024-08-06] MEDS: InsuLIN REG 1unit/0.01ml Soln (100units/ml) SC SCH (00:40)
[2024-08-06] MEDS: INSULIN LANTUS (GLARGINE) 1 /0.01ml (100units/ml) SC ONE ×2 (00:40→14:45)
[2024-08-06] MEDS: HYDROcodone-ACET 10/325MG TAB PO PRN (00:46)
[2024-08-06] MEDS ORDERED: hydrALAZINE HCL 20 MG/ML VL IV PRN (01:45)
[2024-08-06] MEDS: MORPHINE SULFATE INJ 2 MG/ml SYRG IV PRN (02:24)
[2024-08-06 03:42] LABS: COVID19 ANTIGEN SOFIA FIA NEGATIVE (NEGATIVE); Rapid Influenza A Negative (Negative); Rapid Influenza B Negative (Negative)
[2024-08-06 06:27] LABS: Basophils # (auto) 0 10 ^3/uL (0-0.2); Basophils % (auto) 0.4 % (0.0-2.0); Eosinophils # (auto) 0.2 10 ^3/uL (0-0.8); Eosinophils % (auto) 2.4 % (0.0-7.0); Hematocrit 38.6 % (41.0-53.0); Hemoglobin 13.2 g/dL (13.5-17.5); Lymphocytes # (auto) 2.6 10 ^3/uL (0.4-5.4); Lymphocytes % (auto) 36.6 % (10.0-50.0); Mean Corpuscular Hemoglobin 29.6 pg (28.0-32.0); Mean Corpuscular Hgb Conc. 34.2 g/dL (32.0-36.0); Mean Corpuscular Volume 86.5 fL (80.0-100.0); Monocytes # (auto) 0.6 10 ^3/uL (0-1.3); Monocytes % (auto) 8.8 % (0.0-12.0); Neutrophils # (auto) 3.6 10 ^3/uL (1.6-8.6); Neutrophils % (auto) 51.8 % (37.0-80.0); Nucleated Red Blood Cells % 0.1 %; Platelet Count (auto) 122 10^3/uL (140-450); Red Blood Cells 4.46 10^6/uL (4.5-5.90); Red Cell Distribution Width 14.2 % (11.8-14.3)
[2024-08-06 06:38] LABS: Potassium 3.6 mmol/L (3.5-5.1); Sodium 141 mmol/L (136-145)
[2024-08-06 06:39] LABS: Anion Gap 7 (5-15); Carbon Dioxide 27 mmol/L (20-31)
[2024-08-06 06:40] LABS: Calcium 9.3 mg/dL (8.7-10.4)
[2024-08-06 06:45] LABS: BUN/Creatinine Ratio 15.3 (10.0-20.0); Blood Urea Nitrogen 11 mg/dL (9-23)
[2024-08-06 06:51] LABS: Chloride 107 mmol/L (98-107)
[2024-08-06 06:52] LABS: Glucose 174 mg/dL (74-106)
[2024-08-06 07:57] LABS: Urine Bacteria None Seen /hpf (None Seen)
[2024-08-06 08:18] LABS: Benzodiazephine Screen, Urine Neg (NEGATIVE)
[2024-08-06 08:19] LABS: Amphetamine Screen, Urine Neg (NEGATIVE); Barbiturate Scree,Urine Neg (NEGATIVE); Cocaine Screen, Urine Neg (NEGATIVE); Opiate Scree,Urine Pos (NEGATIVE); Phencyclidine Screen, Urine Neg (NEGATIVE)
[2024-08-06 08:21] LABS: Cannabinoid Screen, Urine Neg (NEGATIVE)
[2024-08-06 08:23] LABS: Urine Blood Negative /uL (Negative); Urine Clarity Clear (Clear); Urine Color Yellow (Yellow); Urine Mucus FEW (None Seen); Urine Protein, UAD TRACE (Negative); Urine Specific Gravity 1.046 (1.001-1.035); Urine Urobilinogen Normal (Negative); Urine WBC 1 /hpf (0 - 3); Urine pH 5.5 (5.0-9.0)
[2024-08-06 08:40] LABS: Magnesium 2.1 mg/dL (1.6-2.6)
[2024-08-06 08:42] LABS: Blood Alcohol < 3.0 mg/dL (<10)
[2024-08-06] MEDS: FLUoxetine HCL 20 MG CAP PO SCH (10:53)
[2024-08-06] MEDS: ASPirin 81 mg TAB PO SCH (10:55)
[2024-08-06] MEDS: METOPROLOL SUCCINATE XL 50 MG TAB PO SCH (10:55)
[2024-08-06] MEDS: cefTRIAXone 2GM/50ML D5W 50 ML IV SCH (10:55)
[2024-08-06] MEDS: DAPTOmycin 600 MG in SODIUM CHL 0.9% 50 ML IV SCH (11:58)
--- NOTE | 2024-08-06 13:08 | DVHCONRES ---
Date Seen: Aug 06, 2024 Resident Creating Document: ASHWIN NICHOLS RESIDENT Reason for Consultation Chest pain History of Present Illness Britton Guardado is a 49-year-old male with a past medical history as described below came to the ED with a chief complaint of chest pain for 1 day prior to admission. Patient reported since last night he started having substernal chest pain, pressure-like described as squeezing or chest tightness, radiating to the jaw in the left arm, severe 9/10 on intensity, associated with intermittent shortness of breath, denied sweating, palpitations. Patient reports that he recently had a similar chest pain about 3 weeks ago and was admitted to the [facility] where his troponins were high but no intervention was done. Patient reports that today he had about 6 episodes of vomiting mostly consistent with a solid food and liquids and the last 1 was just dry heaving got relieved after he got Zofran. Patient denies history of heartburn, acid reflux. On my assessment patient denies fever, diaphoresis, palpitations, and other associated symptoms. Past Medical History [place] s/p 3 TRACEY in January 2019, another FL in October 2019 s/p 1 TRACEY, CVA with a residual left-sided weakness, type 2 diabetes mellitus, bipolar disorder, major depression Past Surgical History CABG with quadruple bypass in April 2020, PTCA x2 with 4 TRACEY Family History: Cardiovascular disease G8 FATHER Diabetes mellitus G8 MOTHER FH: cancer G8 FATHER, Onset:Unknown G8 FATHER FH: cancer G8 FATHER, Onset:Unknown G8 FATHER Hypertension G8 FATHER Family History Father- end-stage renal disease, congestive heart failure, lung cancer Grandfather- stroke, brain cancer Social History Smokes 2 cigarettes daily, has a 15 pack year smoking history, denies current alcohol, drug use Allergies: Coded Allergies: Ketorolac Tromethamine (Verified Allergy, Severe, 01/04/22) Pineapple (Verified Allergy, Severe, SWELLING, 12/26/21) Uncoded Allergies: BROCCOLI (Allergy, Severe, SWELLING, 12/26/21) COCONUT (Allergy, Severe, SWELLING, 12/26/21) Home Meds Active Scripts Insulin Lispro (Humalog Kwikpen) 100 Unit/Ml Inj, 14 UNIT SC TIDAC for 30 Days INJECT 30 UNITS SC THREE TIMES PER DAY BEFORE MEALS Prov:Aminata Hurley 12/30/21 Insulin Glargine (Basaglar Kwikpen) 100 Unit/Ml Inj, 0 SC BID for 30 Days INJECT 60 UNITS SC TID Prov:Aminata Hurley 12/30/21 Reported Medications Gabapentin (Gabapentin) 600 Mg Tab, 1 TAB PO TID, #90 TAB 3 Refills 12/30/21 Metoprolol Succinate (Metoprolol Succinate Er) 50 Mg Tab, 50 MG PO DAILY for 30 Days, MG 10/23/21 Atorvastatin Calcium (ATORVASTATIN CALCIUM) 80 Mg Tab, 80 TAB PO HS 10/25/20 Current Medications Current Medications Medications (Trade) Dose Ordered Sig/Carey Route PRN Reason Start Time Stop Time Status Last Admin Nitroglycerin (Ntrostat Sublingual) 0.4 mg Q5MINP PRN SL FOR CHEST PAIN 08/05/24 21:45 Morphine Sulfate 2 mg Q30M PRN IV FOR CHEST PAIN 08/05/24 21:45 08/06/24 07:47 Atorvastatin Calcium (Lipitor) 80 mg HS PO 08/05/24 22:00 08/05/24 23:31 Metoprolol Succinate (Toprol Xl) 25 mg DAILY PO 08/06/24 10:00 08/06/24 10:55 Divalproex Sodium (Depakote "Dr" Tablet) 1,000 mg BID PO 08/05/24 22:00 08/06/24 10:54 Fluoxetine HCl (PROzac CAPSULE) 40 mg DAILY PO 08/06/24 10:00 08/06/24 10:53 Ticagrelor (Brilinta) 90 mg BID PO 08/05/24 22:00 08/06/24 10:54 Aspirin 81 mg DAILY PO 08/06/24 10:00 08/06/24 10:55 Acetaminophen/ Hydrocodone Bitart ([place] 10/325MG Tab) 1 tab Q4HP PRN PO MODERATE PAIN (4-6 PAIN SCALE) 08/05/24 21:45 08/06/24 10:54 Morphine Sulfate 2 mg Q4HPRN PRN IV SEVERE PAIN (7-10 PAIN SCALE) 08/05/24 21:45 08/06/24 02:24 Ceftriaxone Sodium/Dextrose 50 ml @ 50 mls/hr DAILY IV 08/06/24 10:00 08/06/24 10:55 Daptomycin 600 mg/ Sodium Chloride 50 ml @ 100 mls/hr DAILY IV 08/06/24 10:00 08/06/24 11:58 Diagnostic Test (Pha) (Accu-Chek Comfort Curve T) 1 strip IQ4HR 08/06/24 00:00 08/06/24 12:00 Insulin Human Regular (InsuLIN R) IQ4HR SC 08/06/24 00:00 08/06/24 12:00 Dextrose 50 ml UD PRN IV Blood Sugar LESS THAN 60 08/05/24 21:45 Insulin Glargine (Lantus) 15 units HS SC 08/06/24 22:00 Hydralazine HCl (Apresoline Injection) 10 mg Q6HP PRN IV SBP>160 08/06/24 01:45 Review of Systems Patient seen and examined at the bedside. Patient reported mild improvement in chest pain and shortness of breast. No new complaints. Vital Signs Vital Signs Date Time Temp Pulse Resp B/P (MAP) Pulse Ox O2 Delivery O2 Flow Rate FiO2 08/06/24 12:00 54 11 127/76 (93) 96 08/06/24 08:00 Room Air* 0 21 08/06/24 08:00 97.7 97.7 Physical Exam Pt is lying on bed General Appearance: Alert, Oriented X3, Cooperative, Not in acute distress HEENT: Atraumatic, Mucous membranes moist/pink Respiratory: Clear to auscultation, Normal air movement, No added sounds Cardiovascular: Regular rate, Normal S1, Normal S2, No murmurs, chest wall tenderness Abdominal: Active bowel sounds, Soft, no distention, no tenderness Extremities: Right lateral 4 toes amputation. No edema, Normal pulses, No tenderness/swelling Skin: No Significant rash, except past surgical scars Neuro: Normal speech, sensorimotor deficits none Psych/Mental Status: Mental status NL, Mood NL Nurse was there as davene during examination Labs/Diagnostic Data Labs Test 08/06/24 12:31 08/06/24 07:50 08/06/24 06:07 08/06/24 03:01 Range/Units POC Glucose 206 H 70-106 mg/dl Urine Color Yellow Yellow Urine Clarity Clear Clear Urine pH 5.5 5.0-9.0 Urine Specific [place] 1.046 H 1.001-1.035 Urine Protein Trace H Negative Urine Ketones Negative Negative Urine Blood Negative Negative /uL Urine Nitrite Negative Negative Urine Bilirubin Negative Negative Urine Urobilinogen Normal Negative mg/dL Urine Leukocyte Esterase Negative Negative /uL Urine RBC <1 0 - 3 /hpf Urine WBC 1 0 - 3 /hpf Urine Squamous Epithelial Cells None seen <5 /hpf Urine Bacteria None seen None Seen /hpf Urine Mucus Few None Seen Urine Glucose 4+ H Normal mg/dL Urine Opiates Screen Pos NEGATIVE Urine Fentanyl Screen Neg NEGATIVE Urine Barbiturates Screen Neg NEGATIVE Urine Phencyclidine Screen Neg NEGATIVE Urine Amphetamines Screen Neg NEGATIVE Urine Benzodiazepines Screen Neg NEGATIVE Urine Cocaine Screen Neg NEGATIVE Urine Cannabinoids Screen Neg NEGATIVE White Blood Count 7.0 4.4-10.8 10^3/uL Red Blood Count 4.46 L 4.5-5.90 10^6/uL Hemoglobin 13.2 L 13.5-17.5 g/dL Hematocrit 38.6 L 41.0-53.0 % Mean Corpuscular Volume 86.5 80.0-100.0 fL Mean Corpuscular Hemoglobin 29.6 28.0-32.0 pg Mean Corpuscular Hemoglobin Concent 34.2 32.0-36.0 g/dL Red Cell Distribution Width 14.2 11.8-14.3 % Platelet Count 122 L 140-450 10^3/uL Mean Platelet Volume 8.3 6.9-10.8 fL Neutrophils (%) (Auto) 51.8 37.0-80.0 % Lymphocytes (%) (Auto) 36.6 10.0-50.0 % Monocytes (%) (Auto) 8.8 0.0-12.0 % Eosinophils (%) (Auto) 2.4 0.0-7.0 % Basophils (%) (Auto) 0.4 0.0-2.0 % Neutrophils # (Auto) 3.6 1.6-8.6 10 ^3/uL Lymphocytes # (Auto) 2.6 0.4-5.4 10 ^3/uL Monocytes # (Auto) 0.6 0-1.3 10 ^3/uL Eosinophils # (Auto) 0.2 0-0.8 10 ^3/uL Basophils # (Auto) 0 0-0.2 10 ^3/uL Nucleated Red Blood Cells 0.1 % Sodium Level 141 136-145 mmol/L Potassium Level 3.6 3.5-5.1 mmol/L Chloride Level 107 98-107 mmol/L Carbon Dioxide Level 27 20-31 mmol/L Anion Gap 7 5-15 Blood Urea Nitrogen 11 9-23 mg/dL Creatinine 0.72 0.700-1.30 mg/dL Glomerular Filtration Rate Calc 113 >90 mL/min BUN/Creatinine Ratio 15.3 10.0-20.0 Serum Glucose 174 #H 74-106 mg/dL Calcium Level 9.3 8.7-10.4 mg/dL Magnesium Level 2.1 1.6-2.6 mg/dL Plasma/Serum Blood Alcohol < 3.0 <10 mg/dL Influenza Type A Antigen Negative Negative Influenza Type B Antigen Negative Negative SARS-CoV-2 Antigen (Rapid) Negative NEGATIVE Test 08/05/24 17:09 08/05/24 16:10 Range/Units Troponin I High Sensitivity < 3 L </=54 ng/L Hemoglobin A1c 9.6 H <5.7 % A1C Total Bilirubin 0.4 0.2-1.0 mg/dL Aspartate Amino Transferase (AST) 17 13-40 U/L Alanine Aminotransferase (ALT) 27 7-40 U/L Alkaline Phosphatase 170 H 46-116 U/L B-Type Natriuretic Peptide 21.44 0-100 pg/mL Total Protein 7.9 5.7-8.2 g/dL Albumin 4.5 3.2-4.8 g/dL Triglycerides Level 110 < 150 mg/dL Cholesterol Level 177 < 200 mg/dL LDL Cholesterol 118 H < 100 mg/dL HDL Cholesterol 47 40-59 mg/dL Thyroid Stimulating Hormone (TSH) 0.63 0.55-4.78 uIU/mL Assessment Chest pain rule out progressive CAD History of CAD status post PTCA, 3 TRACEY History of CABG quadruple bypass Uncontrolled type 2 DM Uncontrolled HTN Dyslipidemia Right foot wound Plan/Recommendation Plan/Recommendation We will continue with the following plan/recommendations (Dr. Corrales): Echocardiogram to evaluate cardiac function Chest pain protocol HEART score: 6-7 points (High score) Continue dual antiplatelet therapy Lipid lowering agent BP control with beta-jamir Discussed with Dr. Steen Given that the patient High risk(HEART score 6-7 points) for CAD patient may benefit from a coronary angiogram with left heart catheterization. Procedure was discussed with the patient in full detail including risks and benefits. Risks include but are not limited to bleeding, contrast-induced nephropathy, stroke, and even . The patient understands and is agreeable to undergo the procedure. We will schedule the patient at first availability. Plan discussed with: Patient Visit Coding Cardiology RES Date of Service: Aug 06, 2024 Billing Provider: KATHERINE STEEN MD Cardiology Common Codes: [id number] INP/OBS CARE (Mod), [id number] CARE 30-74 MIN ASHWIN NICHOLS RESIDENT Aug 06, 2024 13:08
[2024-08-06 13:59] LABS: Basophils # (auto) 0 10 ^3/uL (0-0.2); Basophils % (auto) 0.4 % (0.0-2.0); Eosinophils # (auto) 0.1 10 ^3/uL (0-0.8); Hemoglobin 13.8 g/dL (13.5-17.5); Lymphocytes % (auto) 28.3 % (10.0-50.0); Mean Corpuscular Hemoglobin 29.3 pg (28.0-32.0); Mean Corpuscular Hgb Conc. 33.6 g/dL (32.0-36.0); Monocytes # (auto) 0.5 10 ^3/uL (0-1.3); Monocytes % (auto) 7.8 % (0.0-12.0); Neutrophils # (auto) 4.3 10 ^3/uL (1.6-8.6); Neutrophils % (auto) 61.5 % (37.0-80.0); Nucleated Red Blood Cells % 0.1 %; Platelet Count (auto) 138 10^3/uL (140-450); Red Blood Cells 4.71 10^6/uL (4.5-5.90); Red Cell Distribution Width 13.8 % (11.8-14.3)
[2024-08-06 14:13] LABS: INR 1.06 (0.9-1.15); Partial Thromboplastin Time 26.7 SEC (24.5-34.5); Prothrombin Time 11.2 sec (9.3-11.8)
[2024-08-06 14:22] LABS: Chloride 103 mmol/L (98-107); Potassium 3.9 mmol/L (3.5-5.1); Sodium 140 mmol/L (136-145)
[2024-08-06 14:23] LABS: Anion Gap 7 (5-15); Calcium 9.5 mg/dL (8.7-10.4); Carbon Dioxide 30 mmol/L (20-31)
[2024-08-06 14:28] LABS: BUN/Creatinine Ratio 14.5 (10.0-20.0); Blood Urea Nitrogen 12 mg/dL (9-23)
[2024-08-06 14:37] LABS: Glucose 200 mg/dL (74-106)
--- NOTE | 2024-08-06 14:50 | DVHPNRES ---
Progress Note Date Seen: Aug 06, 2024 Resident Creating Document: TATIANA HUYNH RESIDENT Medical Necessity Reason Pt with a Central, PICC or Fol: No Subjective Review of Systems Patient is 49 years old male with past medical history of coronary artery disease,[place] status post 3 stents in January 2019, another [place] in October 2019 status post 1 stent, February 2020 stroke with a residual left-sided weakness, CABG with quadruple bypass in April 2020, PTCA x2, ype 2 diabetes mellitus, bipolar disorder, major depression came to the ER due to chest pain. As per patient patient has been having chest pain for last couple of weeks which got worse 1 day before. Patient reported chest pain central in nature, pressure or stabbing or knife-like, 9/10 severity, radiating to the left arm, no aggravating or relieving factor. Patient reported some shortness of breath associated with the chest pain. Denied any fever, change in vision or dysarthria, acute joint pain or swelling, dysuria or diarrhea. Patient reported he went to the [facility] after 3 weeks before with chest pain where he had elevated troponin I and also he was treated for stroke in ICU but details documents are not available. As per patient they did not do any cardiac intervention at [facility] in his recent visit. 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 Patient is on antibiotic ceftriaxone 2 g daily and daptomycin 600 mg as per recommendation from his infectious disease Dr. Zuñiga. Initial lab workup revealed WBC 6.0, hemoglobin 30 minutes 7, platelet 139, sodium 137, potassium 5.2, serum creatinine 0.96, blood sugar 234, HGB A1c 9.6, serum bilirubin/AST/ALT within normal limit, alkaline phosphatase 170, troponin I with a normal limit, BNP 21.44, TSH 0.63. Past medical history: [place] status post 3 stents in January 2019, another [place] in October 2019 status post 1 stent, February 2020 stroke with a residual left-sided weakness, type 2 diabetes mellitus, bipolar disorder, major depression Past surgical history: CABG with quadruple bypass in April 2020, PTCA x2 Social history: Smokes 2 cigarettes daily, has a 15 pack year smoking history, denies current alcohol, drug use Family history: Father- end-stage renal disease, congestive heart failure, lung cancer Grandfather- stroke, brain cancer Home medications: Brilinta 90 mg b.i.d., atorvastatin 80 mg q.d., aspirin 81 mg q.d., metoprolol succinate 25 mg q.d., Depakote 1000 mg b.i.d., Prozac 40 mg q.d., Latuda 80 mg q.d. Allergy-colic, coconut, ketorolac, tromethamine, pineapple Patient was seen today at the bedside. Respiratory- denies cough or wheezing Gastrointestinal- denies any rectal bleeding, nausea or vomiting Musculoskeletal-denies acute joint swelling or tenderness or redness Neurological- denies acute dysarthria, dysphagia, change in vision Psychiatry- denies depression or SI or HI Skin- denies acute rash or purpura Patient is seen today for clinical evaluation. Labs and chart reviewed. Patient complained of ongoing chest pain. Patient was seen by Cardiology, recommendation reviewed and appreciated. Cardiology recommended -patient High risk(HEART score 6-7 points) for CAD patient may benefit from a coronary angiogram with left heart catheterization. Procedure was discussed with the patient in full detail including risks and benefits. Risks include but are not limited to bleeding, contrast-induced nephropathy, stroke, and even . The patient understands and is agreeable to undergo the procedure. Patient was due for left heart catheterization in the afternoon. Objective vital signs Vital Sign Date Time Temp Pulse Resp B/P (MAP) Pulse Ox O2 Delivery O2 Flow Rate FiO2 08/06/24 12:00 54 11 127/76 (93) 96 08/06/24 08:00 Room Air* 0 21 08/06/24 08:00 97.7 97.7 medications Current Medications Medications Dose Ordered Sig/Carey Route Start Time Stop Time Status Last Admin Dose Admin Nitroglycerin 0.4 mg Q5MINP PRN SL 08/05/24 21:45 Morphine Sulfate 2 mg Q30M PRN IV 08/05/24 21:45 08/06/24 07:47 2 MG Atorvastatin Calcium 80 mg HS PO 08/05/24 22:00 08/05/24 23:31 80 MG Metoprolol Succinate 25 mg DAILY PO 08/06/24 10:00 08/06/24 10:55 25 MG Divalproex Sodium 1,000 mg BID PO 08/05/24 22:00 12/18/24 10:54 1,000 MG Fluoxetine HCl 40 mg DAILY PO 08/06/24 10:00 08/06/24 10:53 40 MG Ticagrelor 90 mg BID PO 08/05/24 22:00 08/06/24 10:54 90 MG Aspirin 81 mg DAILY PO 08/06/24 10:00 08/06/24 10:55 81 MG Acetaminophen/ Hydrocodone Bitart 1 tab Q4HP PRN PO 08/05/24 21:45 08/06/24 10:54 1 TAB Morphine Sulfate 2 mg Q4HPRN PRN IV 08/05/24 21:45 08/06/24 02:24 2 MG Ceftriaxone Sodium/Dextrose 50 ml @ 50 mls/hr DAILY IV 08/06/24 10:00 08/06/24 10:55 50 MLS/HR Daptomycin 600 mg/ Sodium Chloride 50 ml @ 100 mls/hr DAILY IV 08/06/24 10:00 08/06/24 11:58 100 MLS/HR Diagnostic Test (Pha) 1 strip IQ4HR 08/06/24 00:00 08/06/24 12:00 1 STRIP Insulin Human Regular IQ4HR SC 08/06/24 00:00 08/06/24 12:00 8 UNITS Dextrose 50 ml UD PRN IV 08/05/24 21:45 Insulin Glargine 15 units HS SC 08/06/24 22:00 Hydralazine HCl 10 mg Q6HP PRN IV 08/06/24 01:45 Examination General examination- awake, alert, oriented, conversant HEENT- PEERLA, no acute nasal discharge Cardiovascular-chest wall tenderness positive+, S1-S2 audible, rate and rhythm regular, no murmur Respiratory- CTAB, no wheeze or rhonchi Gastrointestinal-nontender, bowel sound+. Nondistended Musculoskeletal-no acute joint swelling or tenderness or redness# Lower extremity- no leg edema, amputated right 2nd to 4th toe of the right foot Neurological- cranial nerves intact, no acute dysarthria or dysphagia Psychiatry- denies depression or SI or HI Skin- no acute rash or purpura laboratory and microbiology Laboratory Tests 08/06/24 13:26 Test 08/06/24 13:26 Range/Units Serum Glucose Pending Problem List/Assessment/Plan Problem List/Assessment/Plan # acute chest pain, rule out acute coronary syndrome -patient's history of CAD, PTCA, CABG -troponin negative -EKG -T-wave inversion lead 3, AVF, chest leads V3-V6 -continue aspirin 81 mg q.d. -continue Brilinta 90 mg p.o. b.i.d. --continue metoprolol 25 mg p.o. daily -pending cardiology consult # uncontrolled diabetes mellitus -HGB A1c 9.6 -continue insulin sliding scale as prescribed # Right foot wound with suspected osteomyelitis -status post right 2nd to 5th toe amputation due to complication following shark bite - following Dr Spangler outpatient - continued on home antibiotics ceftriaxone 2g qd and daptomycin 600mg qd # hypertension --continue metoprolol 25 mg p.o. daily -continue hydralazine 10 mg q.6h p.r.n. # hyperlipidemia -continue atorvastatin 80 mg q.h.s. # history of stroke with left-sided Weakness -continue aspirin 81 mg q.d. -continue atorvastatin 80 mg q.h.s. # history of bipolar disorder, depression -continue fluoxetine 40 mg daily -continue divalproex delayed release tablet 1000 mg p.o. b.i.d. Goals of care/advance care planning; FULL CODE; discussed with the patient >15 minutes PUD prophylaxis: Famotidine DVT prophylaxis: Plan discussed with Dr. Christopher, nursing staff, patient Total time spent on patient evaluation, chart review, assessment and plan, discussion discussion >30 minutes Plan discussed with: Patient Plan discussed with: Patient, Other (RN) My Orders My Orders Orders - TATIANA HUYNH Procedure Category Date Status Time Communication Order ORDERS 08/06/24 Transmitted 11:41 Date of Service: Aug 06, 2024 Billing Provider: ROHAN CHRISTOPHER MD Common Visit Codes: [id number] INP/OBS CARE(HIGH) Secondary Visit Codes: [id number] CARE PLAN 30 MINUTES TATIANA HUYNH Aug 06, 2024 14:50 ROHAN CHRISTOPHER MD Aug 06, 2024 20:30
--- NOTE | 2024-08-06 15:32 | DVHSR ---
APPROVED REPORT EXAM: Two-dimensional and M-mode echocardiogram with Doppler and color Doppler. Blood Pressure: 142/82 mmHg INDICATION Chest Pain Dyspnea Status/post CABG h/o CAD RISK FACTORS Obesity: Height: 5'9, Weight: 227 DIMENSIONS LVDd5.7 (3.8-5.7cm)LA (2D)4.4 (1.9-4.0cm)Aortic Root0.5 (2.0-3.7cm) LVDs4.3 (2.5-4.0cm)LA (MM) (1.9-4.0cm)Aortic Cusp Exc2.1 (1.5-2.0cm) EF (%) 50.0 (55-70%)Rt. Atrium3.3 (1.9-4.0cm)Asc. Aorta3.6 cm IVSd1.0 (0.7-1.1cm)RV (D) (1.8-2.4cm) PWd0.9 (0.7-1.1cm) Mitral Valve MitralMitral Stenosis E wave0.77m/sMV Mean GR.mmHg A wave0.73m/sMV Peak GR.mmHg E/A ratio1.12D MVAcm2 DECEL [id number] 1/2 Timems Aortic Valve Aortic ValveAortic Stenosis V10.81m/Donna Mean GR.3mmHg V21.05m/Donna Peak GR.4mmHg LVOT Diameter2.2 (1.8-2.4cm)Doppler AVA2.93cm2 Pulmonic Valve V20.86m/s Conclusion Borderline lower normal limit of left ventricular systolic function at 50%. Normal left ventricular size and dimension. Normal diastolic function. Normal right ventricular size and dimension. Normal right ventricular systolic function. Normal biatrial size and dimension. Normal aortic valve structure function. Normal mitral valve structure and function. Normal tricuspid valve structure and function. The pulmonary valve is grossly normal. No pericardia effusion l.
[2024-08-06] MEDS: HEPARIN SODIUM (PORCINE) 5000 UNITS/ML 1ML VIAL ONE (16:07)
[2024-08-06] MEDS: VERAPAMIL 2.5MG/ML INJ 2ML VIAL IV ONE (16:07)
[2024-08-06] MEDS: MIDAZOLAM HCL 2MG/2ML 2ml VIAL (1mg/ml) ONE (16:07)
[2024-08-06] MEDS: ANGIOMAX 250 MG VIAL IV ONE (16:07)
[2024-08-06] MEDS: fentaNYL CITRATE 100 MCG/2 ML VL ONE (16:07)
[2024-08-06] MEDS: SODIUM CHL 0.9% 0 ML ONE (16:08)
[2024-08-06] MEDS: LIDOCAINE 2%HCL (LOCAL ANESTH.) INJ 20ML MDV ONE (16:08)
--- NOTE | 2024-08-06 16:52 | DVHOP2 ---
Operative Report -Cardiology Report Details Date: 08/06/24 Preop Diagnosis: Unstable angina. Postop Diagnosis: Coronary angiography revealed completely occluded nulato LAD at the ostium, with a widely patent left main and the left circumflex vessel, widely patent right coronary artery with a mid lesion as well as distal stenosis, saphenous vein graft to the obtuse marginal branch is occluded at the os, the DIOR to the LAD is widely patent and provides blood flow to the LAD and the diagonal branch. The patient has high left ventricular end-diastolic pressure at 18 mm Hg, in addition to high blood pressure at 160 systolic over 90, we will recommend aggressive medical therapy including better blood pressure control, Surgeon: Harlan Steen MD Anesthesiologist: Conscious sedation using25 mcg fentanyl as well as a mg midazolam. Patient was monitored for total of35 minutes without obvious complication. Under direct supervision of myself as well as the attending nurses. Anesthesia: Local Consent: The patient was informed of the risks and benefits of the procedure. These include but are not limited to complications of anesthesia, postoperative infection, incomplete relief of symptoms, recurrence of symptoms, damage to blood vessels, nerves and tendons, deep venous thrombosis, pulmonary embolism and possible need for repeat surgery in the future. Indications for Surgery: Britton Guardado is a 49-year-old male with a past medical history as described below came to the ED with a chief complaint of chest pain for 1 day prior to admission. Patient reported since last night he started having substernal chest pain, pressure-like described as squeezing or chest tightness, radiating to the jaw in the left arm, severe 9/10 on intensity, associated with intermittent shortness of breath, denied sweating, palpitations. Patient reports that he recently had a similar chest pain about 3 weeks ago and was admitted to the [facility] where his troponins were high but no intervention was done. Patient reports that today he had about 6 episodes of vomiting mostly consistent with a solid food and liquids and the last 1 was just dry heaving got relieved after he got Zofran. Patient denies history of heartburn, acid reflux. On my assessment patient denies fever, diaphoresis, palpitations, and other associated symptoms. Name of Procedure Performed 1. Ultrasound-guided right femoral arterial access. 2. Left heart catheterization with left ventricular end-diastolic pressure measurement. 3. Selective right and left coronary angiography utilizing right transfemoral approach. 4. Conscious sedation using25 mcg of fentanyl as well as a mg IV midazolam. 5. Right femoral arterial access closure device utilizing six [place] Angio-Seal system. Procedure Details Procedure Details: Procedure note and vascular access: After informed consent was obtained, risks, benefits, complications, alternatives were discussed in details with the patient who agrees to have the procedure done. At the beginning of the procedure, the right coronary artery were prepped and draped in the regular sterile fashion. The patient received conscious sedation using25 mcg of fentanyl as well as a mg midazolam. Thereafter, total of 10 cc of 1% xylocaine was given to the right wrist area for local anesthesia. Under ultrasound guidance we were able to identify the right femoral artery above the bifurcation point, direct puncture using micropuncture kit was made good flashback, then the micropuncture kit was exchanged for six [place] Angio-Seal using modified Seldinger technique. Confirmation of the location of the puncture was made also using right femoral cine angiography. Preshaped Denisse left and Denisse right were used to engage the the left and right coronary system respectively, finally using the Denisse right we were able to engage the graft vessel including left internal mammary artery findings were as follows: 1. Left heart catheterization with left ventricular end-diastolic pressure measurement: With the help of Denisse right as well as a J-tip wire we were able to cross the aortic valve and measured left ventricular end-diastolic pressure which was elevated at 18 mm of mercury. There was no gradient across the aortic valve on the pullback. 2. Selective right and left coronary angiography utilizing right transfemoral approach: 1. The right coronary artery comes off the right coronary cusp it is a large dominant system, it bifurcated distally into large posterior descending artery as well as a large posterolateral branch. The right coronary artery has mid 50% stenosis, followed by distal stenosis at the crux of the bifurcation point of 70%, followed by small caliber PDA and small caliber posterolateral branches, due to despite it is in the size between the proximal segment of the right coronary artery as well as diastolic vessels medical therapy is preferred to avoid complications from stenting. 2. The left main comes off the left coronary cusp it is widely patent bifurcates into a large left circumflex vessel as well as a left anterior descending artery which is occluded at the ostium. 3. The left circumflex system is made of a medium to large obtuse marginal branch that is widely patent with mild irregularity 30-40% of the proximal and mid segment. Graft coronary angiography: 1. Saphenous vein graft to the obtuse marginal branch is occluded at the os. 2. Left internal mammary artery ([place]) to left anterior descending artery is widely patent, it touches down the LAD at the mid segment, and provide retrograde filling of a large diagonal branch, no significant stenosis was noted at the course of the DIOR. IMPRESSION AND PLAN: 1. COMPLETELY OCCLUDED LEFT ANTERIOR DESCENDING ARTERY OF THE OSTIUM, WITH A WIDELY PATENT DIOR TO THE LAD. NO GRAFTS WERE IDENTIFIED TO THE RIGHT CORONARY ARTERY. 2. WIDELY PATENT LEFT CIRCUMFLEX VESSEL WITH THE 1ST OBTUSE MARGINAL BRANCH. 3. WIDELY PATENT RIGHT CORONARY ARTERY WITH A MID AND DISTAL STENOSIS, MODERATE IN SEVERITY AT 50 AND 70% RESPECTIVELY , DUE TO DESPITE IT IS IN THE SIZE OF THE PROXIMAL AND DISTAL PART OF THE RIGHT CORONARY ARTERY MEDICAL THERAPY IS ADVISED. 4. AGGRESSIVE BLOOD PRESSURE CONTROL IS WARRANTED GIVEN HIGHER LEFT VENTRICULAR END-DIASTOLIC PRESSURE AND HIGH SYSTOLIC PRESSURE AT 160 AND 180. IN ADDITION TO OTHER RISK FACTOR MODIFICATION. 5. PATIENT WOULD NEED AN ECHOCARDIOGRAM TO ASSESS LEFT VENTRICULAR EJECTION FRACTION AND TO PROCEED WITH GOAL-DIRECTED THERAPY INDICATED. Condition Good [facility] Clinical Frailty Scale [facility] Clinical Frailty Scale: Managing Well Stress Test Stress Test Performed: No Dominance Dominance: Right Disposition HARLAN STEEN MD Aug 06, 2024 16:52
[2024-08-06] MEDS: FAMOTIDINE 20 MG TAB PO SCH (21:59)
[2024-08-06] MEDS: GABAPENTIN 300 MG CAP PO SCH (21:59)
[2024-08-06] MEDS: ATORVASTATIN 20 MG TAB PO SCH (22:00)
[2024-08-06] MEDS: INSULIN LANTUS (GLARGINE) 1 /0.01ml (100units/ml) SC SCH (22:01)
[2024-08-07] VITALS (7 sets, daily range): BP systolic 126–157; BP diastolic 69–88; PULSE 64–82; RESP 15–20; TEMP 97.9–98.3; O2SAT 94–99
[2024-08-07] MEDS: INSULIN LANTUS (GLARGINE) 1 /0.01ml (100units/ml) SC SCH (05:59)
[2024-08-07] MEDS ORDERED: ONDANSETRON HCL 4 MG/2 ML VIAL ONE (06:04)
[2024-08-07] MEDS: ONDANSETRON HCL 4 MG/2 ML VIAL IV PRN (06:12)
[2024-08-07] MEDS: ENOXAPARIN SOD 40 MG/0.4 ML SYRINGE SC ONE (07:00)
[2024-08-07 08:52] LABS: Basophils # (auto) 0 10 ^3/uL (0-0.2); Basophils % (auto) 0.2 % (0.0-2.0); Eosinophils # (auto) 0.1 10 ^3/uL (0-0.8); Eosinophils % (auto) 1.5 % (0.0-7.0); Hemoglobin 13.7 g/dL (13.5-17.5); Lymphocytes # (auto) 1.9 10 ^3/uL (0.4-5.4); Lymphocytes % (auto) 23.5 % (10.0-50.0); Mean Corpuscular Hemoglobin 29.3 pg (28.0-32.0); Mean Corpuscular Hgb Conc. 34.2 g/dL (32.0-36.0); Mean Corpuscular Volume 85.5 fL (80.0-100.0); Monocytes # (auto) 0.5 10 ^3/uL (0-1.3); Neutrophils # (auto) 5.4 10 ^3/uL (1.6-8.6); Neutrophils % (auto) 68.8 % (37.0-80.0); Platelet Count (auto) 133 10^3/uL (140-450); Red Blood Cells 4.68 10^6/uL (4.5-5.90); Red Cell Distribution Width 14.3 % (11.8-14.3); White Blood Cell 7.9 10^3/uL (4.4-10.8)
[2024-08-07 09:09] LABS: Alanine Aminotransferase 21 U/L (7-40); Albumin 3.9 g/dL (3.2-4.8); Alkaline Phosphatase 110 U/L (46-116); Anion Gap 7 (5-15); BUN/Creatinine Ratio 16.2 (10.0-20.0); Blood Urea Nitrogen 12 mg/dL (9-23); Calcium 9.2 mg/dL (8.7-10.4); Carbon Dioxide 29 mmol/L (20-31); Chloride 103 mmol/L (98-107); Magnesium 2.1 mg/dL (1.6-2.6); Potassium 3.6 mmol/L (3.5-5.1); Sodium 139 mmol/L (136-145)
[2024-08-07 09:10] LABS: Bilirubin, Total 0.7 mg/dL (0.2-1.0); Total Protein 6.7 g/dL (5.7-8.2)
[2024-08-07 09:30] LABS: Aspartate Aminotransferase 13 U/L (13-40); Glucose 154 mg/dL (74-106)
--- NOTE | 2024-08-07 12:17 | DVHDSRES ---
Discharge Summary Date of Admission Resident Creating Document: TATIANA HUYNH RESIDENT Aug 05, 2024 at 21:43 Date of Discharge: Aug 07, 2024 Admitting Diagnosis chest pain Labs/Diagnostic Data: Laboratory Results Test 08/07/24 11:47 08/07/24 08:25 08/06/24 13:26 08/06/24 07:50 POC Glucose 140 mg/dl (70-106) White Blood Count 7.9 10^3/uL (4.4-10.8) Red Blood Count 4.68 10^6/uL (4.5-5.90) Hemoglobin 13.7 g/dL (13.5-17.5) Hematocrit 40.0 % (41.0-53.0) Mean Corpuscular Volume 85.5 fL (80.0-100.0) Mean Corpuscular Hemoglobin 29.3 pg (28.0-32.0) Mean Corpuscular Hemoglobin Concent 34.2 g/dL (32.0-36.0) Red Cell Distribution Width 14.3 % (11.8-14.3) Platelet Count 133 10^3/uL (140-450) Mean Platelet Volume 8.5 fL (6.9-10.8) Neutrophils (%) (Auto) 68.8 % (37.0-80.0) Lymphocytes (%) (Auto) 23.5 % (10.0-50.0) Monocytes (%) (Auto) 6.0 % (0.0-12.0) Eosinophils (%) (Auto) 1.5 % (0.0-7.0) Basophils (%) (Auto) 0.2 % (0.0-2.0) Neutrophils # (Auto) 5.4 10 ^3/uL (1.6-8.6) Lymphocytes # (Auto) 1.9 10 ^3/uL (0.4-5.4) Monocytes # (Auto) 0.5 10 ^3/uL (0-1.3) Eosinophils # (Auto) 0.1 10 ^3/uL (0-0.8) Basophils # (Auto) 0 10 ^3/uL (0-0.2) Nucleated Red Blood Cells 0.0 % Sodium Level 139 mmol/L (136-145) Potassium Level 3.6 mmol/L (3.5-5.1) Chloride Level 103 mmol/L (98-107) Carbon Dioxide Level 29 mmol/L (20-31) Anion Gap 7 (5-15) Blood Urea Nitrogen 12 mg/dL (9-23) Creatinine 0.74 mg/dL (0.700-1.30) Glomerular Filtration Rate Calc 112 mL/min (>90) BUN/Creatinine Ratio 16.2 (10.0-20.0) Serum Glucose 154 mg/dL (74-106) Calcium Level 9.2 mg/dL (8.7-10.4) Magnesium Level 2.1 mg/dL (1.6-2.6) Total Bilirubin 0.7 mg/dL (0.2-1.0) Aspartate Amino Transferase (AST) 13 U/L (13-40) Alanine Aminotransferase (ALT) 21 U/L (7-40) Alkaline Phosphatase 110 U/L (46-116) Total Protein 6.7 g/dL (5.7-8.2) Albumin 3.9 g/dL (3.2-4.8) Prothrombin Time 11.2 sec (9.3-11.8) Prothrombin Time INR 1.06 (0.9-1.15) Activated Partial Thromboplast Time 26.7 SEC (24.5-34.5) Urine Color Yellow (Yellow) Urine Clarity Clear (Clear) Urine pH 5.5 (5.0-9.0) Urine Specific [place] 1.046 (1.001-1.035) Urine Protein Trace (Negative) Urine Ketones Negative (Negative) Urine Blood Negative /uL (Negative) Urine Nitrite Negative (Negative) Urine Bilirubin Negative (Negative) Urine Urobilinogen Normal mg/dL (Negative) Urine Leukocyte Esterase Negative /uL (Negative) Urine RBC <1 /hpf (0 - 3) Urine WBC 1 /hpf (0 - 3) Urine Squamous Epithelial Cells None seen /hpf (<5) Urine Bacteria None seen /hpf (None Seen) Urine Mucus Few (None Seen) Urine Glucose 4+ mg/dL (Normal) Urine Opiates Screen Pos (NEGATIVE) Urine Fentanyl Screen Neg (NEGATIVE) Urine Barbiturates Screen Neg (NEGATIVE) Urine Phencyclidine Screen Neg (NEGATIVE) Urine Amphetamines Screen Neg (NEGATIVE) Urine Benzodiazepines Screen Neg (NEGATIVE) Urine Cocaine Screen Neg (NEGATIVE) Urine Cannabinoids Screen Neg (NEGATIVE) Test 08/06/24 06:07 08/06/24 03:01 08/05/24 17:09 08/05/24 16:10 Plasma/Serum Blood Alcohol < 3.0 mg/dL (<10) Influenza Type A Antigen Negative (Negative) Influenza Type B Antigen Negative (Negative) SARS-CoV-2 Antigen (Rapid) Negative (NEGATIVE) Troponin I High Sensitivity < 3 ng/L (</=54) Hemoglobin A1c 9.6 % A1C (<5.7) B-Type Natriuretic Peptide 21.44 pg/mL (0-100) Triglycerides Level 110 mg/dL (< 150) Cholesterol Level 177 mg/dL (< 200) LDL Cholesterol 118 mg/dL (< 100) HDL Cholesterol 47 mg/dL (40-59) Thyroid Stimulating Hormone (TSH) 0.63 uIU/mL (0.55-4.78) Other Laboratory Tests 08/07/24 08:25 Brief Hx & Hospital Course: Patient is 49 years old male with past medical history of coronary artery disease,TN status post 3 stents in January 2019, another TN in October 2019 status post 1 stent, February 2020 stroke with a residual left-sided weakness, CABG with quadruple bypass in April 2020, PTCA x2, ype 2 diabetes mellitus, bipolar disorder, major depression came to the ER due to chest pain. As per patient patient has been having chest pain for last couple of weeks which got worse 1 day before. Patient reported chest pain central in nature, pressure or stabbing or knife-like, 9/10 severity, radiating to the left arm, no aggravating or relieving factor. Patient reported some shortness of breath associated with the chest pain. Denied any fever, change in vision or dysarthria, acute joint pain or swelling, dysuria or diarrhea. Patient reported he went to the [facility] after 3 weeks before with chest pain where he had elevated troponin I and also he was treated for stroke in ICU but details documents are not available. As per patient they did not do any cardiac intervention at [facility] in his recent visit. 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 Patient is on antibiotic ceftriaxone 2 g daily and daptomycin 600 mg as per recommendation from his infectious disease Dr. Zuñiga. Initial lab workup revealed WBC 6.0, hemoglobin 30 minutes 7, platelet 139, sodium 137, potassium 5.2, serum creatinine 0.96, blood sugar 234, HGB A1c 9.6, serum bilirubin/AST/ALT within normal limit, alkaline phosphatase 170, troponin I with a normal limit, BNP 21.44, TSH 0.63. During hospitalization patient was treated conservatively. Patient was seen by Cardiology, status post left heart catheterization, left heart catheterization revealed completely occluded left anterior descending artery of the ostium, with a widely patent DIOR to the LAD, no grafts were identified to the right coronary artery. Widely patent left circumflex vessels with the 1st obtuse marginal branch. Widely patent right coronary artery with a mid and distal stenosis, moderate in severity at 50 and 70% respectively. Due to deposit it is in the size of the proximal and distal part of the right coronary artery medical therapy is advised. Patient is being discharged home in a hemodynamically stable condition. Cardiology discontinued metoprolol and ordered carvedilol 12.5 mg p.o. b.i.d., Imdur 30 mg p.o. daily. Patient advised to resume other home medications. Patient's meds were sent to the pharmacy electronically.. Patient was also advised to follow up with the primary care physician in 1 week and also to follow up with the water supply technician in 2-4 weeks. Patient's symptoms clinically improved and Patient was hemodynamically stable on discharge. Past medical history: TN status post 3 stents in January 2019, another TN in October 2019 status post 1 stent, February 2020 stroke with a residual left-sided weakness, type 2 diabetes mellitus, bipolar disorder, major depression Past surgical history: CABG with quadruple bypass in April 2020, PTCA x2 Social history: Smokes 2 cigarettes daily, has a 15 pack year smoking history, denies current alcohol, drug use Family history: Father- end-stage renal disease, congestive heart failure, lung cancer Grandfather- stroke, brain cancer Home medications: Brilinta 90 mg b.i.d., atorvastatin 80 mg q.d., aspirin 81 mg q.d., metoprolol succinate 25 mg q.d., Depakote 1000 mg b.i.d., Prozac 40 mg q.d., Latuda 80 mg q.d. Allergy-colic, coconut, ketorolac, tromethamine, pineapple Patient was seen today at the bedside. Respiratory- denies cough or wheezing Gastrointestinal- denies any rectal bleeding, nausea or vomiting Musculoskeletal-denies acute joint swelling or tenderness or redness Neurological- denies acute dysarthria, dysphagia, change in vision Psychiatry- denies depression or SI or HI Skin- denies acute rash or purpura Operations or Procedures Signed PATIENT: RUBIN GUARDADO ACCT: [id number] UNIT: [id number] : 1975 LOC: ER ROOM / BED: / AGE / SEX: 49 / M ADM STATUS: REG ER SERVICE 1603 ORDERING PHYSICIAN: ANNMARIE CAPONE MD PROCEDURE(s): CXRP - CHEST PORTABLE REASON: cp ORDER NUMBER(s): [id number], ACCESSION NUMBER(s): [id number] CHEST RADIOGRAPH Indication: cp Technique: Single frontal view of the chest was obtained COMPARISON: CHEST PORTABLE on DOS: 07/21/22, CXRP on DOS: 07/21/22, CXR1 on DOS: 05/08/22 FINDINGS: Lines and Tubes: Median sternotomy Lungs: Mild congestion Pleura: No effusion. No pneumothorax. Cardiomediastinal contours: Unremarkable Bones: Unremarkable IMPRESSION: Mild congestion ATED BY: NEEL COLÓN MD DICTATED DATE/TIME: 08/05/24 164 SIGNED BY: NEEL COLÓN MD SIGNED DATE/TIME: 08/05/24 164 CC: Patient: RUBIN GUARDADO Acct: [id number] : 1975 Loc: TELE Age/Sex: 49/M Room: [address] [place] [address] / Bed: A Attending Phy: TATIANA HUYNH RESIDENT Operative Report -Cardiology Report Details Date: 08/06/24 Preop Diagnosis: Unstable angina. Postop Diagnosis: Coronary angiography revealed completely occluded [place] LAD at the ostium, with a widely patent left main and the left circumflex vessel, widely patent right coronary artery with a mid lesion as well as distal stenosis, saphenous vein graft to the obtuse marginal branch is occluded at the os, the DIOR to the LAD is widely patent and provides blood flow to the LAD and the diagonal branch. The patient has high left ventricular end-diastolic pressure at 18 mm Hg, in addition to high blood pressure at 160 systolic over 90, we will recommend aggressive medical therapy including better blood pressure control, Surgeon: Harlan Steen MD Anesthesiologist: Conscious sedation using25 mcg fentanyl as well as a mg midazolam. Patient was monitored for total of35 minutes without obvious complication. Under direct supervision of myself as well as the attending nurses. Anesthesia: Local Consent: The patient was informed of the risks and benefits of the procedure. These include but are not limited to complications of anesthesia, postoperative infection, incomplete relief of symptoms, recurrence of symptoms, damage to blood vessels, nerves and tendons, deep venous thrombosis, pulmonary embolism and possible need for repeat surgery in the future. Indications for Surgery: Rubin Guardado is a 49-year-old male with a past medical history as described below came to the ED with a chief complaint of chest pain for 1 day prior to admission. Patient reported since last night he started having substernal chest pain, pressure-like described as squeezing or chest tightness, radiating to the jaw in the left arm, severe 9/10 on intensity, associated with intermittent shortness of breath, denied sweating, palpitations. Patient reports that he recently had a similar chest pain about 3 weeks ago and was admitted to the [facility] where his troponins were high but no intervention was done. Patient reports that today he had about 6 episodes of vomiting mostly consistent with a solid food and liquids and the last 1 was just dry heaving got relieved after he got Zofran. Patient denies history of heartburn, acid reflux. On my assessment patient denies fever, diaphoresis, palpitations, and other associated symptoms. Name of Procedure Performed 1. Ultrasound-guided right femoral arterial access. 2. Left heart catheterization with left ventricular end-diastolic pressure measurement. 3. Selective right and left coronary angiography utilizing right transfemoral approach. 4. Conscious sedation using25 mcg of fentanyl as well as a mg IV midazolam. 5. Right femoral arterial access closure device utilizing six English Angio-Seal system. Procedure Details Procedure Details: Procedure note and vascular access: After informed consent was obtained, risks, benefits, complications, alternatives were discussed in details with the patient who agrees to have the procedure done. At the beginning of the procedure, the right coronary artery were prepped and draped in the regular sterile fashion. The patient received conscious sedation using25 mcg of fentanyl as well as a mg midazolam. Thereafter, total of 10 cc of 1% xylocaine was given to the right wrist area for local anesthesia. Under ultrasound guidance we were able to identify the right femoral artery above the bifurcation point, direct puncture using micropuncture kit was made good flashback, then the micropuncture kit was exchanged for six English Angio-Seal using modified Seldinger technique. Confirmation of the location of the puncture was made also using right femoral cine angiography. Preshaped Denisse left and Denisse right were used to engage the the left and right coronary system respectively, finally using the Denisse right we were able to engage the graft vessel including left internal mammary artery findings were as follows: 1. Left heart catheterization with left ventricular end-diastolic pressure measurement: With the help of Denisse right as well as a J-tip wire we were able to cross the aortic valve and measured left ventricular end-diastolic pressure which was elevated at 18 mm of mercury. There was no gradient across the aortic valve on the pullback. 2. Selective right and left coronary angiography utilizing right transfemoral approach: 1. The right coronary artery comes off the right coronary cusp it is a large dominant system, it bifurcated distally into large posterior descending artery as well as a large posterolateral branch. The right coronary artery has mid 50% stenosis, followed by distal stenosis at the crux of the bifurcation point of 70%, followed by small caliber PDA and small caliber posterolateral branches, due to despite it is in the size between the proximal segment of the right coronary artery as well as diastolic vessels medical therapy is preferred to avoid complications from stenting. 2. The left main comes off the left coronary cusp it is widely patent bifurcates into a large left circumflex vessel as well as a left anterior descending artery which is occluded at the ostium. 3. The left circumflex system is made of a medium to large obtuse marginal branch that is widely patent with mild irregularity 30-40% of the proximal and mid segment. Graft coronary angiography: 1. Saphenous vein graft to the obtuse marginal branch is occluded at the os. 2. Left internal mammary artery ([place]) to left anterior descending artery is widely patent, it touches down the LAD at the mid segment, and provide retrograde filling of a large diagonal branch, no significant stenosis was noted at the course of the DIOR. IMPRESSION AND PLAN: 1. COMPLETELY OCCLUDED LEFT ANTERIOR DESCENDING ARTERY OF THE OSTIUM, WITH A WIDELY PATENT DIOR TO THE LAD. NO GRAFTS WERE IDENTIFIED TO THE RIGHT CORONARY ARTERY. 2. WIDELY PATENT LEFT CIRCUMFLEX VESSEL WITH THE 1ST OBTUSE MARGINAL BRANCH. 3. WIDELY PATENT RIGHT CORONARY ARTERY WITH A MID AND DISTAL STENOSIS, MODERATE IN SEVERITY AT 50 AND 70% RESPECTIVELY , DUE TO DESPITE IT IS IN THE SIZE OF THE PROXIMAL AND DISTAL PART OF THE RIGHT CORONARY ARTERY MEDICAL THERAPY IS ADVISED. 4. AGGRESSIVE BLOOD PRESSURE CONTROL IS WARRANTED GIVEN HIGHER LEFT VENTRICULAR END-DIASTOLIC PRESSURE AND HIGH SYSTOLIC PRESSURE AT 160 AND 180. IN ADDITION TO OTHER RISK FACTOR MODIFICATION. 5. PATIENT WOULD NEED AN ECHOCARDIOGRAM TO ASSESS LEFT VENTRICULAR EJECTION FRACTION AND TO PROCEED WITH GOAL-DIRECTED THERAPY INDICATED. Condition Good [facility] Clinical Frailty Scale [facility] Clinical Frailty Scale: Managing Well Stress Test Stress Test Performed: No Dominance Dominance: Right Disposition 2 HARLAN STEEN MD Aug 06, 2024 16:52 DICTATED BY:HARLAN STEEN MD DICTATED DATE/TIME:08/06/241651 ELECTRONICALLY SIGNED BY:HARLAN STEEN MD 08/06/241651 ELECTRONICALLY CO-SIGNED BY: Condition at Discharge: Stable Final Diagnosis/Problems List # acute chest pain likely musculoskeletal, ruled out acute coronary syndrome # CAD, status post PTCA, status post CABG # uncontrolled diabetes mellitus # Right foot wound with suspected osteomyelitis # hypertension # hyperlipidemia # history of stroke with left-sided Weakness # history of bipolar disorder, depression # obesity, BMI 35.1 Discharge Disposition: Home Discharge Instruct/Medications Diet: Consistent carbohydrate, Cardiac 2g Na,low cholest Activity: No Restrictions, As Tolerated Follow Up/Referral: Please follow up with the primary care physician in 1 week and also follow up with the water supply technician in 3-4 weeks Medications: Please resume home medications Discharge Statement: "Patient was advised to return to the ER or call 911 if any headaches, dizziness, shortness of breath, chest pain, abdominal pain, bleeding, fevers, or worsening of medical condition. Patient was counseled about treatment plan, medications, possible side effects, patientverbalized understanding. All questions were answered to the best of my ability. This discharge took greater then 30 minutes in planning, reviewing documentation, counseling the patient, and discussing with other team members." ASSESSMENT ASSESSMENT Assessment Coronary angiography revealed completely occluded [place] LAD at theostium, with a widely patent left main and the left circumflex vessel,widely patent right coronary artery with a mid lesion as well as distalstenosis, saphenous vein graft to the obtuse marginal branch is occludedat the os, the DIOR to the LAD is widely patent and provides blood flow tothe LAD and the diagonal branch. The patient has high left ventricularend-diastolic pressure at 18 mm Hg, in addition to high blood pressure at160 systolic over 90, we will recommend aggressive medical therapyincluding better blood pressure control, Date of Service: Aug 07, 2024 Billing Provider: ROHAN DOSS MD Common Visit Codes: 83070-CDJ/OBS DISCH DAY >30min TATIANA HUYNH Aug 07, 2024 12:17 ROHAN DOSS MD Aug 07, 2024 20:37
--- NOTE | 2024-08-07 13:05 | DVHPNRES ---
Progress Note Date Seen: Aug 07, 2024 Resident Creating Document: ASHWIN NICHOLS RESIDENT Medical Necessity Reason Pt with a Central, PICC or Fol: No Subjective Review of Systems Patient seen and examined at the bedside. Patient reported mild improvement in his symptoms since admission. For his chest pain given Imdur. Patient reports: No new complaints Objective vital signs Vital Sign Date Time Temp Pulse Resp B/P (MAP) Pulse Ox O2 Delivery O2 Flow Rate FiO2 08/07/24 09:47 66 20 139/69 08/07/24 09:00 98.1 96 98.1 08/06/24 20:31 Room Air* 0 21 Total Intake and Output 08/06/24 08/06/24 08/07/24 14:59 22:59 06:59 Intake Total 50 ml 600 ml Output Total 700 ml 750 ml Balance -650 ml -150 ml medications Current Medications Medications Dose Ordered Sig/Carey Route Start Time Stop Time Status Last Admin Dose Admin Nitroglycerin 0.4 mg Q5MINP PRN SL 08/05/24 21:45 Morphine Sulfate 2 mg Q30M PRN IV 08/05/24 21:45 08/06/24 07:47 2 MG Atorvastatin Calcium 80 mg HS PO 08/05/24 22:00 08/06/24 22:00 80 MG Metoprolol Succinate 25 mg DAILY PO 08/06/24 10:00 08/07/24 09:14 25 MG Divalproex Sodium 1,000 mg BID PO 08/05/24 22:00 08/07/24 09:14 1,000 MG Fluoxetine HCl 40 mg DAILY PO 08/06/24 10:00 08/07/24 10:00 40 MG Ticagrelor 90 mg BID PO 08/05/24 22:00 08/07/24 09:12 90 MG Aspirin 81 mg DAILY PO 08/06/24 10:00 08/07/24 09:15 81 MG Acetaminophen/ Hydrocodone Bitart 1 tab Q4HP PRN PO 08/05/24 21:45 08/07/24 06:24 1 TAB Morphine Sulfate 2 mg Q4HPRN PRN IV 08/05/24 21:45 08/07/24 09:17 2 MG Ceftriaxone Sodium/Dextrose 50 ml @ 50 mls/hr DAILY IV 08/06/24 10:00 08/07/24 09:12 50 MLS/HR Daptomycin 600 mg/ Sodium Chloride 50 ml @ 100 mls/hr DAILY IV 08/06/24 10:00 08/07/24 10:00 100 MLS/HR Diagnostic Test (Pha) 1 strip IQ4HR 08/06/24 00:00 08/07/24 11:53 1 STRIP Insulin Human Regular IQ4HR SC 08/06/24 00:00 08/07/24 11:53 2 UNITS Dextrose 50 ml UD PRN IV 08/05/24 21:45 Insulin Glargine 15 units HS SC 08/06/24 22:00 08/06/24 22:01 15 UNITS Hydralazine HCl 10 mg Q6HP PRN IV 08/06/24 01:45 Atorvastatin Calcium 40 mg HS PO 08/06/24 22:00 Gabapentin 300 mg TID PO 08/06/24 22:00 08/07/24 06:01 300 MG Insulin Glargine 20 units QAM SC 08/07/24 07:00 08/07/24 05:59 20 UNITS Famotidine 20 mg Q12HR PO 08/06/24 22:00 08/06/24 21:59 20 MG Ondansetron HCl 4 mg Q4HPRN PRN IV 08/07/24 06:00 08/07/24 06:12 4 MG Enoxaparin Sodium 40 mg DAILY SC 08/08/24 10:00 Examination General Appearance: Alert, Oriented X3, Cooperative, Not in acute distress HEENT: Atraumatic, Mucous membranes moist/pink Respiratory: Clear to auscultation, Normal air movement, No added sounds Cardiovascular: Regular rate, Normal S1, Normal S2, No murmurs, chest wall tenderness Abdominal: Active bowel sounds, Soft, no distention, no tenderness Extremities: Right lateral 4 toes amputation. No edema, Normal pulses, No tenderness/swelling Skin: No Significant rash, except past surgical scars Neuro: Normal speech, sensorimotor deficits none Psych/Mental Status: Mental status NL, Mood NL Nurse was there as sharperone during examination laboratory and microbiology Laboratory Tests 08/07/24 08:25 Test 08/07/24 08:25 Range/Units Serum Glucose 154 H 74-106 mg/dL Labs and/or images reviewed: Labs reviewed by me, Image(s) reviewed by me Problem List/Assessment/Plan Problem List/Assessment/Plan Progressive CAD History of CAD status post PTCA, 3 TRACEY History of CABG quadruple bypass Uncontrolled type 2 DM Uncontrolled HTN Dyslipidemia Right foot wound Plan/Recommendation Plan/Recommendation We will continue with the following plan/recommendations (Dr. Corrales): Echocardiogram showed LVEF 50% Chest pain protocol HEART score: 6-7 points (High score) Continue dual antiplatelet therapy Lipid lowering agent BP control with beta-jamir Coreg 12.[address] Steen, angiogram showed completely occluded LAD with widely patent DIOR to LAD, widely patent RCA with a mild and distal stenosis moderate in severity, medical therapy advised with the aggressive blood pressure control given higher LVEDP and high systolic pressure along with risk factor modification. Patient will be benefit from Coreg 12.5 and Imdur. Discontinued metoprolol. Plan discussed with: Patient My Orders My Orders Orders - ASHWIN NICHOLS Procedure Category Date Status Time Carvedilol Tablet PHA 08/07/24 Logged (Coreg Tablet) 22:00 Isosorbide PHA 08/08/24 Logged Mononitrate Tablet 10:00 Visit Coding Cardiology RES Date of Service: Aug 07, 2024 Billing Provider: KATHERINE STEEN MD Cardiology Common Codes: 15450-PDDLHXVULO INP/OBS CARE(Mod) ASHWIN NICHOLS RESIDENT Aug 07, 2024 13:05
[2024-08-07] MEDS ORDERED: CARV-216 PO (17:42)
[2024-08-07] MEDS ORDERED: ISO60SRT PO (17:42)
[2024-08-07] MEDS ORDERED: CARVEDILOL 12.5 MG TAB PO SCH (22:00)
[2024-08-08] MEDS ORDERED: ENOXAPARIN SOD 40 MG/0.4 ML SYRINGE SC SCH (10:00)
[2024-08-08] MEDS ORDERED: ISOSORBIDE MONONITRATE ER 60 MG TAB PO SCH (10:00)
== END 2024-08-07 16:40 | disposition home or self-care (01) | DRG 191 ==
LOC: EDBD 15:51 → ER 15:51 → TELE 21:43 → TELE-WESTW 08-06 20:20
PROVIDERS: ADMIT Internal Medicine Geriatric Medicine; ATTEND Internal Medicine Geriatric Medicine
PROC: 4A023N7 Measurement of Cardiac Sampling and Pressure, Left Heart, Percutaneous Approach (ICD-10-PCS; principal; 2024-08-06)
PROC: B211YZZ Fluoroscopy of Multiple Coronary Arteries using Other Contrast (ICD-10-PCS; 2024-08-06)
PROC: B213YZZ Fluoroscopy of Multiple Coronary Artery Bypass Grafts using Other Contrast (ICD-10-PCS; 2024-08-06)
DX: I25.810 Atherosclerosis of coronary artery bypass graft(s) without angina pectoris (principal); I69.354 Hemiplegia and hemiparesis following cerebral infarction affecting left non-dominant side; S91.301A Unspecified open wound, right foot, initial encounter; M86.8X7 Other osteomyelitis, ankle and foot; E11.65 Type 2 diabetes mellitus with hyperglycemia; Z20.822 Contact with and (suspected) exposure to COVID-19; E78.5 Hyperlipidemia, unspecified; I25.10 Atherosclerotic heart disease of native coronary artery without angina pectoris; F17.210 Nicotine dependence, cigarettes, uncomplicated; F31.9 Bipolar disorder, unspecified; E66.9 Obesity, unspecified; Z79.4 Long term (current) use of insulin; Z68.35 Body mass index [BMI] 35.0-35.9, adult; Z98.61 Coronary angioplasty status; X58.XXXA Exposure to other specified factors, initial encounter; Y93.9 Activity, unspecified; Y92.89 Other specified places as the place of occurrence of the external cause; Y99.8 Other external cause status
CPT/HCPCS: 36415; 71045; 80048; 80053; 80061; 80307; 80320; 81001; 82962; 83036; 83735; 83880; 84443; 84484; 85025; 85610; 85730; 87426; 87804; 93005; 93306; 93459; 99152; 99291; C1894; G0378; J1815; J2250; J2405

== ENCOUNTER 2024-11-22 22:14 | Inpatient (IN) | payer MEDICAID ==
[~2024-11-22] VITALS: Ht 175.3 cm; Wt 106.1 kg
[~2024-11-22 22:14] MED LIST changes: -ATOR-47 PO; +CARV-216 PO; -GABA-339 PO; -INSU100I4 SC; -INSU1INJ19 SC; +ISO60SRT PO; -METO-289 PO
--- NOTE | 2024-11-22 22:27 | ED.PDOC ---
HPI Comments 49-year-old male with PMHx NJ, CVA, PTCA, CABG brought in by EMS presents with a chief compliant of chest pain x onset 2100 with associated SOB, nausea, and vomiting. Patient states that he was sitting watching TV at home when he began to have sudden onset of chest pain in his left chest wall. Patient reported to EMS that his chest pain feels similar to his previous NJ and that is when he decided to call 911. Patient mentions that he took 4 x 81mg ASA and 3 x NTG tabs at home prior to EMS arrival. Patient was also given 50mcg Fentanyl by EMS for the chest pain. No other symptoms or modifying factors present at this time. Time Seen by MD: 22:19 Primary Care Provider: NICK Reviewed Notes: Medications, Allergies Allergies: Coded Allergies: Ketorolac Tromethamine (Verified Allergy, Severe, 01/04/22) Pineapple (Verified Allergy, Severe, SWELLING, 12/26/21) Uncoded Allergies: BROCCOLI (Allergy, Severe, SWELLING, 12/26/21) COCONUT (Allergy, Severe, SWELLING, 12/26/21) Home Meds Active Scripts Carvedilol (COREG) 12.5 Mg Tab, 12.5 MG PO Q12HR for 30 Days, #60 TAB 1 Refill Prov:FELECIA SANTACRUZ RESIDENT 08/07/24 Isosorbide Mononitrate (Isosorbide Mononitrate ER) 60 Mg Tab, 30 MG PO DAILY for 30 Days, #15 TAB 1 Refill Prov:FELECIA SANTACRUZ RESIDENT 08/07/24 Reported Medications Ticagrelor Base (BRILINTA) 90 Mg Tab, 1 TAB PO DAILY for 30 Days, #30 08/06/24 Gabapentin (Gabapentin) 400 Mg Cap, 4 CAP PO QPM for 90 Days, #810 08/06/24 Gabapentin (Gabapentin) 400 Mg Cap, 3 CAP PO @NOON for 90 Days, #810 08/06/24 Divalproex Sodium (Divalproex Sodium Dr) 500 Mg Tab, 1-2 TAB PO HS for 30 Days, #60 08/06/24 Lurasidone Hydrochloride (Lurasidone Hydrochloride) 40 Mg Tab, 1 TAB PO BID for 30 Days, #60 24 Fluoxetine Hcl (Fluoxetine Hcl) 40 Mg Cap, 1 CAP PO DAILY for 30 Days, #30 08/06/24 Dextromethorphan Hbr-Quinidine (NUEDEXTA) 1 Cap Cap, 1 CAP PO BID for 30 Days, #60 08/06/24 Ondansetron HCl (Ondansetron Hydrochloride) 4 Mg Tab, 1 TAB PO TID PRN for NAUSEA / VOMITING for 90 Days, #270 08/06/24 Insulin Lispro (Insulin Lispro Kwikpen) 100 Unit/Ml Inj, 30-50 UNIT SC TIDAC for 90 Days, #45 08/06/24 Hydrocodone-Acetaminophen (Hydrocodone Bitartrate/AC 10-325 mg) 1 Tab Tab, 1 TAB PO Q4-6HR PRN for PAIN for 23 Days, #138 08/06/24 Aspirin (Aspirin Low Dose) 81 Mg Chw, 1 TAB PO DAILY for 30 Days, #30 08/06/24 Zolpidem Tartrate (Zolpidem Tartrate) 10 Mg Tab, 1 TAB PO DAILY for 30 Days, #30 08/06/24 Insulin Glargine (Lantus Solostar) 100 Unit/Ml Inj, 30 UNIT SC TID for 100 Days, #30 08/06/24 Gabapentin (Gabapentin) 400 Mg Cap, 2 CAP PO QAM for 90 Days, #810 08/06/24 Atorvastatin Calcium (Lipitor) 40 Mg Tab, 1 TAB PO DAILY for 30 Days, #30 08/06/24 Information Source: Patient, Emergency Med Personnel Mode of Arrival: EMS Severity: Moderate Timing: Minutes Duration: Since onset Prehospital treatment: ASA (4 x 81mg ), NTG (3 x NTG) Location: Chest (L) Radiation: No Radiation Quality: Sharp Onset: At Rest Cardiac Risk Factors: None PE Risk Factors: None History of: NJ Modifying Factors: NTG Past Medical History PAST MEDICAL HISTORY: CAD, CKF, CVA, DM, High Lipids, NJ, PE, TIA Surgical History: CABG, Hernia Repair, PTCA Family History Family History: Reviewed,noncontributory to illness, Family hx of DM, Family hx of HTN Social History Smoker: Cigarettes, Less Than 1 Pack/Day Alcohol: Rarely Drugs: Denies Drug Use Lives In: Home Constitutional: denies: chills, diaphoresis, fatigue, fever, malaise, sweats, weakness, others EENTM: denies: blurred vision, double vision, ear bleeding, ear discharge, ear drainage, ear pain, ear ringing, eye pain, eye redness, hearing loss, mouth pain, mouth swelling, nasal discharge, nose bleeding, nose congestion, nose pain, photophobia, tearing, throat pain, throat swelling, voice changes, others Respiratory: reports: shortness of breath; denies: cough, hemoptysis, orthopnea, SOB at rest, SOB with excertion, stridor, wheezing, others Cardiovascular: reports: chest pain; denies: dizzy spells, diaphoresis, Dyspnea on exertion, edema, irregular heart beat, left arm pain, lightheadedness, palpitations, PND, syncope, others Gastrointestinal: reports: nausea, vomiting; denies: abdomen distended, abdominal pain, blood streaked bowels, constipated, diarrhea, dysphagia, difficulty swallowing, hematemesis, melena, poor appetite, poor fluid intake, rectal bleeding, rectal pain, others Genitourinary: denies: burning, dysuria, flank pain, frequency, hematuria, incontinence, penile discharge, penile sore, pain, testicle pain, testicle swelling, urgency, others Neurological: denies: dizziness, fainting, headache, left sided numbness, left sided weakness, numbness, paresthesia, pre-existing deficit, right sided numbness, right sided weakness, seizure, speech problems, tingling, tremors, weakness, others Musculoskeletal: denies: back pain, gout, joint pain, joint swelling, muscle pain, muscle stiffness, neck pain, others Integumetry: denies: bruises, change in color, change in hair/nails, dryness, laceration, lesions, lumps, rash, wounds, others Allergic/Immunocompromised: denies: Difficulty Healing, Frequent Infections, Hives, Itching, others Hematologic/Lymphatic: denies: anemia, blood clots, easy bleeding, easy bruising, swollen glands, others Endocrine: denies: excessive hunger, excessive sweating, excessive thirst, excessive urination, flushing, intolerance to cold, intolerance to heat, unexplained weight gain, unexplained weight loss, others Psychiatric: denies: anxiety, bipolar disorder, depression, hopeless, panic disorder, schizophrenia, sleepless, suicidal, others All Other Systems: Reviewed and Negative Physical Exam General Appearance: No Apparent Distress, Normal HEENT: Normal ENT Inspection, Pharynx Normal, TMs Normal Neck: Full Range of Motion, Non-Tender, Normal, Normal Inspection Respiratory: Chest Non-Tender, Lungs Clear, No Accessory Muscle Use, No Respiratory Distress, Normal Breath Sounds Cardiovascular: No Edema, No JVD, No Murmur, No Gallop, Normal Peripheral Pulses, Regular Rate/Rhythm Breast Exam: Deferred Gastrointestinal: No Organomegaly, Non Tender, No Pulsatile Mass, Normal Bowel Sounds, Soft Genitalia: Deferred Pelvic: Deferred Rectal: Deferred Extremities: No calf tenderness, Normal capillary refill, Normal inspection, Normal range of motion, Non-tender, No pedal edema Musculoskeletal : Apperance: Normal Neurologic: Alert, car icer II-XII nml as Tested, No Motor Deficits, Normal Affect, Normal Mood, No Sensory Deficits Cerebellar Function: Normal Reflexes: Normal Skin: Dry, Normal Color, Warm Lymphatic: No Adenopathy Was a procedure done? Was a procedure done?: No CP Differential Dx Differential Diagnosis: A-fib, Angina, Electrolyte Disorder, Heart Failure, Hyperthyroidism, Hyperventilation, PSVT, Pulmonary Embolus, Sinus Tachycardia, Ventricular Dysrhythmia, V-Fib, V-Tach, Other X-Ray, Labs, Meds, VS Vital Signs Date Time Temp Pulse Resp B/P (MAP) Pulse Ox O2 Delivery O2 Flow Rate FiO2 11/23/24 00:23 90 24 157/93 11/22/24 23:16 90 11/22/24 23:15 91 12 154/95 11/22/24 22:47 98.3 94 14 146/45 (78) 95 98.3 11/22/24 22:46 94 14 146/95 11/22/24 22:30 94 14 95 Room Air* 0 21 11/22/24 22:15 94 11/22/24 22:14 98.4 90 18 163/100 (121) 95 98.4 Lab Test 11/23/24 00:18 11/22/24 22:28 Range/Units Troponin I High Sensitivity Pending 8 </=54 ng/L White Blood Count 8.5 4.4-10.8 10^3/uL Red Blood Count 5.53 4.5-5.90 10^6/uL Hemoglobin 14.9 13.5-17.5 g/dL Hematocrit 44.9 41.0-53.0 % Mean Corpuscular Volume 81.2 80.0-100.0 fL Mean Corpuscular Hemoglobin 27.0 L 28.0-32.0 pg Mean Corpuscular Hemoglobin Concent 33.2 32.0-36.0 g/dL Red Cell Distribution Width 15.3 H 11.8-14.3 % Platelet Count 160 140-450 10^3/uL Mean Platelet Volume 8.2 6.9-10.8 fL Neutrophils (%) (Auto) 66.4 37.0-80.0 % Lymphocytes (%) (Auto) 23.5 10.0-50.0 % Monocytes (%) (Auto) 9.0 0.0-12.0 % Eosinophils (%) (Auto) 0.5 0.0-7.0 % Basophils (%) (Auto) 0.6 0.0-2.0 % Neutrophils # (Auto) 5.7 1.6-8.6 10 ^3/uL Lymphocytes # (Auto) 2.0 0.4-5.4 10 ^3/uL Monocytes # (Auto) 0.8 0-1.3 10 ^3/uL Eosinophils # (Auto) 0 0-0.8 10 ^3/uL Basophils # (Auto) 0 0-0.2 10 ^3/uL Nucleated Red Blood Cells 0.1 % Prothrombin Time 10.8 9.3-11.8 sec Prothrombin Time INR 1.02 0.9-1.15 Activated Partial Thromboplast Time 25.4 24.5-34.5 SEC Sodium Level 136 136-145 mmol/L Potassium Level 3.8 3.5-5.1 mmol/L Chloride Level 100 98-107 mmol/L Carbon Dioxide Level 27 20-31 mmol/L Anion Gap 9 5-15 Blood Urea Nitrogen 11 9-23 mg/dL Creatinine 0.89 0.700-1.30 mg/dL Glomerular Filtration Rate Calc 106 >90 mL/min BUN/Creatinine Ratio 12.4 10.0-20.0 Serum Glucose 304 H 74-106 mg/dL Calcium Level 9.8 8.7-10.4 mg/dL Total Bilirubin 0.4 0.2-1.0 mg/dL Aspartate Amino Transferase (AST) 23 13-40 U/L Alanine Aminotransferase (ALT) 34 7-40 U/L Alkaline Phosphatase 152 H 46-116 U/L B-Type Natriuretic Peptide 27.18 0-100 pg/mL Total Protein 7.7 5.7-8.2 g/dL Albumin 4.4 3.2-4.8 g/dL Current Medications Medications (Trade) Dose Ordered Sig/Carey Route Start Time Stop Time Status Last Admin Ondansetron HCl (Zofran) 4 mg ONCE ONCE IV 11/22/24 22:30 11/22/24 22:31 DC 11/22/24 22:45 Morphine Sulfate 4 mg ONCE ONCE IV 11/22/24 22:30 11/22/24 22:31 DC 11/22/24 22:46 Aspirin 162 mg ONCE ONCE PO 11/22/24 22:30 11/22/24 22:31 DC 11/22/24 22:44 Hydromorphone HCl (Dilaudid Injection) 1 mg ONCE ONCE IV 11/22/24 23:45 11/22/24 23:46 DC 11/23/24 00:23 Time of 1ST Reevaluation: 22:49 Reevaluation 1ST: Unchanged Patient Education/Counseling: Diagnosis, Treatment, Prognosis Family Education/Counseling: No Family Present Departure 1 Departure Time of Disposition: 00:50 Impression: Primary Impression: Acute coronary syndrome Additional Impressions: Uncontrolled diabetes mellitus Hyperglycemia Disposition: ADMITTED INPATIENT Admit to: Med Surg Condition: Guarded Comments Chest Pain with History of CAD Chief Complaint: Chest pain with shortness of breath History of Present Illness: 49-year-old male with significant cardiac history including CAD s/p CABG and CHF presents to the ED with a 3-hour history of chest pain accompanied by shortness of breath, nausea, and intermittent vomiting. Patient also has a known history of diabetes with a right foot partial amputation and current diabetic foot ulcer. Review of Systems: Cardiovascular: Positive for chest pain Respiratory: Positive for shortness of breath Gastrointestinal: Positive for nausea and vomiting All other systems reviewed and negative Past Medical History: 1. Coronary Artery Disease 2. Congestive Heart Failure 3. Diabetes Mellitus 4. Bipolar Disorder 5. Schizophrenia Past Surgical History: 1. Coronary Artery Bypass Graft (CABG) 2. Right foot partial amputation Social History: Former smoker Physical Exam: Right foot: Diabetic foot wound present at the distal end of right foot stump with minimal erythema Other exam findings not documented in resource analyst Lab Results: CBC: Unremarkable Chemistry Panel: Unremarkable except for elevated blood glucose at 304 BNP: Normal at 27 Troponin: Normal at 8 Imaging and Other Relevant Results: No imaging results documented in resource analyst Medical Decision Making: Summary Statement: 49-year-old male with history of CAD presents with acute chest pain and elevated blood glucose requiring admission. Problem List: 1. Acute chest pain/Possible ACS 2. Diabetic hyperglycemia 3. Right foot diabetic ulcer Differential Diagnosis: Acute Coronary Syndrome, Unstable Angina, NSTEMI, Diabetic Ketoacidosis, Wound infection ED Course: Patient received aspirin. Right foot wound cleaned and dressed. Decision made to admit for further management. Assessment and Plan: 1. Acute Chest Pain/Possible Acute Coronary Syndrome: - Admit to cardiology service - Continue cardiac monitoring - Initiated on aspirin 2. Diabetic Hyperglycemia: - Blood glucose elevated at 304 - Requires insulin management during admission 3. Right Foot Diabetic Ulcer: - Wound cleaned and dressed - Will need wound care consultation during admission Billing Information: ICD-10: R07.9 - Chest pain, unspecified ICD-10: R06.02 - Shortness of breath ICD-10: E11.65 - Type 2 diabetes mellitus with hyperglycemia ICD-10: L97.529 - Non-pressure chronic ulcer of other part of right foot Critical Care Note Critical Care Time?: Yes (35 min-critical care time only) Critical care comment: Total critical care time: Approximately 36 minutes Due to a high probability of clinically significant, life threatening deterioration, the patient required my highest level of preparedness to intervene emergently and I personally spent this critical care time directly and personally managing the patient. This critical care time included obtaining a history; examining the patient; pulse oximetry; ordering and review of studies; arranging urgent treatment with development of a management plan; evaluation of patient's response to treatment; frequent reassessment; and, discussions with other providers. This critical care time was performed to assess and manage the high probability of imminent, life-threatening deterioration that could result in multi-organ failure. It was exclusive of separately billable procedures and treating other patients. Stability Stability form required: No Heart Score Heart Score: Heart Score Response (Comments) Value History Moderate Suspicious 1 EKG Repolarization Disturb 1 Age 45-64 1 Risk Factors >3 or Hx ASHD 2 Troponin Normal limit 0 Total 5 I personally scribed for MAGGI PENALOZA MD ([email or web address]) on 11/22/24 at 22:27. Electronically submitted by Frandy [email or web address]). MAGGI PENALOZA MD Nov 22, 2024 22:27
[2024-11-22 22:30] VITALS: PULSE 94; RESP 14; O2SAT 95
[2024-11-22 22:35] LABS: Basophils # (auto) 0 10 ^3/uL (0-0.2); Basophils % (auto) 0.6 % (0.0-2.0); Eosinophils # (auto) 0 10 ^3/uL (0-0.8); Eosinophils % (auto) 0.5 % (0.0-7.0); Hematocrit 44.9 % (41.0-53.0); Hemoglobin 14.9 g/dL (13.5-17.5); Lymphocytes % (auto) 23.5 % (10.0-50.0); Mean Corpuscular Hgb Conc. 33.2 g/dL (32.0-36.0); Mean Corpuscular Volume 81.2 fL (80.0-100.0); Monocytes # (auto) 0.8 10 ^3/uL (0-1.3); Neutrophils # (auto) 5.7 10 ^3/uL (1.6-8.6); Neutrophils % (auto) 66.4 % (37.0-80.0); Nucleated Red Blood Cells % 0.1 %; Platelet Count (auto) 160 10^3/uL (140-450); Red Blood Cells 5.53 10^6/uL (4.5-5.90); Red Cell Distribution Width 15.3 % (11.8-14.3); White Blood Cell 8.5 10^3/uL (4.4-10.8)
[2024-11-22] MEDS: ASPirin 81 mg TAB PO ONE (22:44)
[2024-11-22] MEDS: ONDANSETRON HCL 4 MG/2 ML VIAL IV ONE (22:45)
[2024-11-22] MEDS: MORPHINE SULFATE 4 MG/ML SYR/VIAL IV ONE (22:46)
[2024-11-22 22:50] LABS: INR 1.02 (0.9-1.15); Partial Thromboplastin Time 25.4 SEC (24.5-34.5); Prothrombin Time 10.8 sec (9.3-11.8)
[2024-11-22 22:55] LABS: Alanine Aminotransferase 34 U/L (7-40); Albumin 4.4 g/dL (3.2-4.8); Anion Gap 9 (5-15); Aspartate Aminotransferase 23 U/L (13-40); BUN/Creatinine Ratio 12.4 (10.0-20.0); Bilirubin, Total 0.4 mg/dL (0.2-1.0); Blood Urea Nitrogen 11 mg/dL (9-23); Calcium 9.8 mg/dL (8.7-10.4); Carbon Dioxide 27 mmol/L (20-31); Chloride 100 mmol/L (98-107); Potassium 3.8 mmol/L (3.5-5.1); Total Protein 7.7 g/dL (5.7-8.2)
[2024-11-22 22:56] LABS: Alkaline Phosphatase 152 U/L (46-116); Glucose 304 mg/dL (74-106); Sodium 136 mmol/L (136-145)
--- NOTE | 2024-11-22 23:27 | DVH ---
CHEST RADIOGRAPH Indication: chest pain Technique: Single frontal view of the chest was obtained Comparison: XY CHEST PORTABLE on DOS: 08/05/24, CHEST PORTABLE on DOS: 07/21/22, CXRP on DOS: 07/21/22 FINDINGS: Lines and Tubes: None Lungs: Clear Pleura: No effusion. No pneumothorax. Cardiomediastinal contours: Post CABG Bones: Unremarkable IMPRESSION: Clear lungs.
[2024-11-23] MEDS: ONDANSETRON HCL 4 MG/2 ML VIAL IV ONE (00:18)
[2024-11-23] MEDS: HYDROmorphone HCL 2 MG/ML VL/or syr IV ONE (00:23)
[2024-11-23] MEDS: ASPirin 81 mg TAB PO ONE (02:11)
[2024-11-23] MEDS: InsuLIN REG 1unit/0.01ml Soln (100units/ml) SC ONE (02:12)
[2024-11-23] MEDS ORDERED: ONDANSETRON HCL 4 MG/2 ML VIAL IV PRN (02:45)
[2024-11-23] MEDS ORDERED: DEXTROSE (50%) 50ML SYRG IV PRN (02:45)
[2024-11-23] MEDS ORDERED: TEMAZEPAM 15 MG CAP PO PRN (02:45)
[2024-11-23] MEDS ORDERED: ACETAMINOPHEN 325 MG TAB PO PRN (02:45)
[2024-11-23] MEDS ORDERED: NITROGLYCERIN 0.4 MG SL TAB SL PRN (03:45)
--- NOTE | 2024-11-23 03:49 | DVHHP2 ---
History of Present Illness Reason for Visit: Chest pain History of Present Illness 49-year-old male presents for evaluation of chest pain. Patient reports a one day history of developing left-sided sharp chest pain that radiates to his left arm and jaw. He states his symptoms started while sitting watching TV. Reports shortness for breath and nausea. No cough or fever. No other acute complaints reported. Past Medical History PR, PE,, CVA, diabetes mellitus, hypertension, CVA Past Surgical History PTCA, CABG, hernia repair Family History Noncontributory Smoke: <1 pack per day ALCOHOL: occassional Lives: with Family Review of Systems Review of Systems Review of systems are currently negative otherwise addressed in HPI. Allergies: Coded Allergies: Ketorolac Tromethamine (Verified Allergy, Severe, 01/04/22) Pineapple (Verified Allergy, Severe, SWELLING, 12/26/21) Uncoded Allergies: BROCCOLI (Allergy, Severe, SWELLING, 12/26/21) COCONUT (Allergy, Severe, SWELLING, 12/26/21) Medications Current Medications Medications Dose Ordered Sig/Carey Route Start Time Stop Time Status Last Admin Dose Admin Aspirin 81 mg DAILY PO 11/23/24 10:00 Atorvastatin Calcium 40 mg HS PO 11/23/24 22:00 Metoprolol Succinate 50 mg DAILY PO 11/23/24 10:00 Isosorbide Mononitrate 30 mg DAILY PO 11/23/24 10:00 Diagnostic Test (Pha) 1 strip Q6HR 11/23/24 06:00 Insulin Human Regular Q6HR SC 11/23/24 06:00 Dextrose 50 ml UD PRN IV 11/23/24 02:45 Acetaminophen/ Hydrocodone Bitart 1 tab Q4HP PRN PO 11/23/24 02:45 Temazepam 15 mg QHSP PRN PO 11/23/24 02:45 Ondansetron HCl 4 mg Q4HP PRN IV 11/23/24 02:45 Acetaminophen 650 mg Q6HP PRN PO 11/23/24 02:45 Exam Vital Signs Vital Signs Date Time Temp Pulse Resp B/P (MAP) Pulse Ox O2 Delivery O2 Flow Rate FiO2 11/23/24 02:00 98.3 90 20 148/95 (112) 91 98.3 11/22/24 22:30 Room Air* 0 21 Exam Gen: 49-year-old male in mild distress Skin: Warm, dry, normal color and texture, no rash. HEENT: Normocephalic atraumatic, mucous membranes moist and pink. Neck: Cervical and supraclavicular nodes normal without enlargement, trachea is midline, thyroid gland is normal without masses. Pulmonary: Clear to auscultation and percussion bilaterally. Cardiac: Regular rate and rhythm. No murmur Abdomen: Soft, nontender, nondistended, bowel sounds present all 4 quadrants, no guarding, no rigidity, no organomegaly. Extremities: No cyanosis, clubbing, no edema Neuro: Cranial nerves II through XII grossly intact, normal affect and speech, no focal motor deficits. Labs/Xrays ORDERING PHYSICIAN: [place] RESIDENT PROCEDURE(s): ECIDC - ECHO 2D MODE CARDIAC DOP REASON: Chest pain with SOB H/o CAD s/p CABG ORDER NUMBER(s): [id number], ACCESSION NUMBER(s): [id number] APPROVED REPORT EXAM: Two-dimensional and M-mode echocardiogram with Doppler and color Doppler. Blood Pressure: 142/82 mmHg INDICATION Chest Pain Dyspnea Status/post CABG h/o CAD RISK FACTORS Obesity: Height: 5'9, Weight: 227 DIMENSIONS LVDd 5.7 (3.8-5.7cm) LA (2D) 4.4 (1.9-4.0cm) Aortic Root 0.5 (2.0- 3.7cm) LVDs 4.3 (2.5-4.0cm) LA (MM) (1.9-4.0cm) Aortic Cusp Exc 2.1 (1.5- 2.0cm) EF (%) 50.0 (55-70%) Rt. Atrium 3.3 (1.9-4.0cm) Asc. Aorta 3.6 cm IVSd 1.0 (0.7-1.1cm) RV (D) (1.8-2.4cm) PWd 0.9 (0.7-1.1cm) Mitral Valve Mitral Mitral Stenosis E wave 0.77m/s MV Mean GR. mmHg A wave 0.73m/s MV Peak GR. mmHg E/A ratio 1.1 2D MVA cm2 DECEL Time 211ms PRESS 1/2 Time ms Aortic Valve Aortic Valve Aortic Stenosis V1 0.81m/s AO Mean GR. 3mmHg V2 1.05m/s AO Peak GR. 4mmHg LVOT Diameter 2.2 (1.8-2.4cm) Doppler RODGER 2.93cm2 Pulmonic Valve V2 0.86m/s Conclusion Borderline lower normal limit of left ventricular systolic function at 50%. Normal left ventricular size and dimension. Normal diastolic function. Normal right ventricular size and dimension. Normal right ventricular systolic function. Normal biatrial size and dimension. Normal aortic valve structure function. Normal mitral valve structure and function. Normal tricuspid valve structure and function. The pulmonary valve is grossly normal. No pericardia effusion l. SIGNED BY: KATHERINE STEEN MD SIGNED DATE/TIME: 08/06/24 1532 ORDERING PHYSICIAN: MAGGI PENALOZA MD PROCEDURE(s): CXRP - CHEST PORTABLE REASON: chest pain ORDER NUMBER(s): [id number], ACCESSION NUMBER(s): [id number] CHEST RADIOGRAPH Indication: chest pain Technique: Single frontal view of the chest was obtained Comparison: XY CHEST PORTABLE on DOS: 08/05/24, CHEST PORTABLE on DOS: 07/21/22, CXRP on DOS: 07/21/22 FINDINGS: Lines and Tubes: None Lungs: Clear Pleura: No effusion. No pneumothorax. Cardiomediastinal contours: Post CABG Bones: Unremarkable IMPRESSION: Clear lungs. Labs Test 11/23/24 02:15 11/23/24 00:18 11/22/24 22:28 Range/Units POC Glucose 290 H 70-106 mg/dl Troponin I High Sensitivity 9 </=54 ng/L White Blood Count 8.5 4.4-10.8 10^3/uL Red Blood Count 5.53 4.5-5.90 10^6/uL Hemoglobin 14.9 13.5-17.5 g/dL Hematocrit 44.9 41.0-53.0 % Mean Corpuscular Volume 81.2 80.0-100.0 fL Mean Corpuscular Hemoglobin 27.0 L 28.0-32.0 pg Mean Corpuscular Hemoglobin Concent 33.2 32.0-36.0 g/dL Red Cell Distribution Width 15.3 H 11.8-14.3 % Platelet Count 160 140-450 10^3/uL Mean Platelet Volume 8.2 6.9-10.8 fL Neutrophils (%) (Auto) 66.4 37.0-80.0 % Lymphocytes (%) (Auto) 23.5 10.0-50.0 % Monocytes (%) (Auto) 9.0 0.0-12.0 % Eosinophils (%) (Auto) 0.5 0.0-7.0 % Basophils (%) (Auto) 0.6 0.0-2.0 % Neutrophils # (Auto) 5.7 1.6-8.6 10 ^3/uL Lymphocytes # (Auto) 2.0 0.4-5.4 10 ^3/uL Monocytes # (Auto) 0.8 0-1.3 10 ^3/uL Eosinophils # (Auto) 0 0-0.8 10 ^3/uL Basophils # (Auto) 0 0-0.2 10 ^3/uL Nucleated Red Blood Cells 0.1 % Prothrombin Time 10.8 9.3-11.8 sec Prothrombin Time INR 1.02 0.9-1.15 Activated Partial Thromboplast Time 25.4 24.5-34.5 SEC Sodium Level 136 136-145 mmol/L Potassium Level 3.8 3.5-5.1 mmol/L Chloride Level 100 98-107 mmol/L Carbon Dioxide Level 27 20-31 mmol/L Anion Gap 9 5-15 Blood Urea Nitrogen 11 9-23 mg/dL Creatinine 0.89 0.700-1.30 mg/dL Glomerular Filtration Rate Calc 106 >90 mL/min BUN/Creatinine Ratio 12.4 10.0-20.0 Serum Glucose 304 H 74-106 mg/dL Calcium Level 9.8 8.7-10.4 mg/dL Total Bilirubin 0.4 0.2-1.0 mg/dL Aspartate Amino Transferase (AST) 23 13-40 U/L Alanine Aminotransferase (ALT) 34 7-40 U/L Alkaline Phosphatase 152 H 46-116 U/L B-Type Natriuretic Peptide 27.18 0-100 pg/mL Total Protein 7.7 5.7-8.2 g/dL Albumin 4.4 3.2-4.8 g/dL Assessment/Plan Assessment/Plan Assessment Chest pain rule out ACS Uncontrolled diabetes mellitus Status post CABG Hypertension Obesity Plan Admit the patient to telemetry to the hospitalist Cardiology consultation ACS protocol Resume home medications Continue treatment per orders. Plan discussed with: Patient My Orders Orders - LIZA MATHEW Procedure Category Date Status Time * Cardiology Consult CONS 11/23/24 Transmitted 02:45 Aspirin Tablet PHA 11/23/24 In Process 10:00 Atorvastatin (Lipitor) PHA 11/23/24 In Process 22:00 Metoprolol Xl PHA 11/23/24 In Process Succinate (Toprol Xl) 10:00 Isosorbide PHA 11/23/24 In Process Mononitrate Tablet 10:00 Basic Metabolic Panel LAB 11/24/24 Verified 04:00 Glucose Blood PHA 11/23/24 In Process (Accu-Chek Comfort 06:00 Insulin R (Human) PHA 11/23/24 In Process (Insulin R) 06:00 Dextrose 50% Syringe PHA 11/23/24 In Process 02:45 Hydrocodone-Acet PHA 11/23/24 In Process 5/325mg Tab ([place] 02:45 Temazepam (Restoril) PHA 11/23/24 In Process 02:45 Ondansetron Hcl PHA 11/23/24 In Process (Zofran) 02:45 Cardiac DIET 11/23/24 Transmitted Diet-2gna,Lofat,Lochol Breakfast Condition: Fair ADOLFO 11/23/24 In Process 02:45 Acetaminophen Tablet PHA 11/23/24 In Process (Tylenol Tablet) 02:45 Bedrest With Bathroom ADOLFO 11/23/24 In Process Privileg 02:45 Date of Service: Nov 23, 2024 Billing Provider: LIZA MATHEW Common Visit Codes: [id number] INP/OBS CARE (HIGH) LIZA MATHEW Nov 23, 2024 03:49
[2024-11-23] MEDS: MORPHINE SULFATE INJ 2 MG/ml SYRG IV PRN (04:15)
[2024-11-23 05:40] VITALS: BP 142/91; PULSE 75; RESP 18; TEMP 98.2; TEMP 98.6; O2SAT 96
[2024-11-23] MEDS: HYDROcodone-ACET 5/325MG TAB PO PRN (05:55)
[2024-11-23] MEDS: ACCU-CHEK COMFORT CURVE STRIP VI SCH (06:00)
[2024-11-23] MEDS: InsuLIN REG 1unit/0.01ml Soln (100units/ml) SC SCH (06:00)
--- NOTE | 2024-11-23 06:07 | ECG ---
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
[2024-11-23] MEDS ORDERED: METO25TA5 PO (07:06)
[2024-11-23 08:00] VITALS: PULSE 70; RESP 16
[2024-11-23] MEDS: ISOSORBIDE MONONITRATE ER 60 MG TAB PO SCH (10:37)
[2024-11-23] MEDS: METOPROLOL SUCCINATE XL 50 MG TAB PO SCH (10:37)
[2024-11-23] MEDS: ASPirin 81 mg TAB PO SCH (10:37)
--- NOTE | 2024-11-23 14:03 | DVHPN2 ---
Objective Vitals Vital Signs Date Time Temp Pulse Resp B/P (MAP) Pulse Ox O2 Delivery O2 Flow Rate FiO2 11/23/24 12:03 75 18 142/75 11/23/24 08:00 Room Air* 0 21 11/23/24 05:40 98.6 96 98.6 Medications Current Medications Medications Dose Ordered Sig/Carey Route Start Time Stop Time Status Last Admin Dose Admin Aspirin 81 mg DAILY PO 11/23/24 10:00 11/23/24 10:37 81 MG Atorvastatin Calcium 40 mg HS PO 11/23/24 22:00 Metoprolol Succinate 50 mg DAILY PO 11/23/24 10:00 11/23/24 10:37 50 MG Isosorbide Mononitrate 30 mg DAILY PO 11/23/24 10:00 11/23/24 10:37 30 MG Diagnostic Test (Pha) 1 strip Q6HR 11/23/24 06:00 11/23/24 12:08 1 STRIP Insulin Human Regular Q6HR SC 11/23/24 06:00 11/23/24 12:10 8 UNITS Dextrose 50 ml UD PRN IV 11/23/24 02:45 Acetaminophen/ Hydrocodone Bitart 1 tab Q4HP PRN PO 11/23/24 02:45 11/23/24 05:55 1 TAB Temazepam 15 mg QHSP PRN PO 11/23/24 02:45 Ondansetron HCl 4 mg Q4HP PRN IV 11/23/24 02:45 Acetaminophen 650 mg Q6HP PRN PO 11/23/24 02:45 Nitroglycerin 0.4 mg Q5MINP PRN SL 11/23/24 03:45 Morphine Sulfate 2 mg Q30M PRN IV 11/23/24 03:45 11/23/24 12:03 2 MG Laboratory Results Laboratory Tests 11/22/24 22:28 Chemistry Test 11/22/24 22:28 Albumin 4.4 g/dL (3.2-4.8) Calcium Level 9.8 mg/dL (8.7-10.4) Total Protein 7.7 g/dL (5.7-8.2) Coagulation Test 11/22/24 22:28 11/23/24 08:46 Prothrombin Time 10.8 sec (9.3-11.8) Prothrombin Time INR 1.02 (0.9-1.15) Activated Partial Thromboplast Time 25.4 SEC (24.5-34.5) D-Dimer, Quantitative 0.67 mg/L FEU (0.0-0.49) H Cardiac Markers Test 11/22/24 22:28 B-Type Natriuretic Peptide 27.18 pg/mL (0-100) LFT Test 11/22/24 22:28 Alanine Aminotransferase (ALT) 34 U/L (7-40) Alkaline Phosphatase 152 U/L (46-116) H Aspartate Amino Transferase (AST) 23 U/L (13-40) Total Bilirubin 0.4 mg/dL (0.2-1.0) STACY HOLLAND RADIOLOGY SUPERVISOR Nov 23, 2024 14:03
--- NOTE | 2024-11-23 14:35 | ECG ---
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
--- NOTE | 2024-11-23 15:05 | DVHINCON2 ---
Date Seen: Nov 23, 2024 Referring Physician Ulises Reason for Consultation Chest Pain History of Present Illness 49-year-old male with PMH for CAD, 4V CABG 04/2020, PTCA, PE on Eliquis, HTN, dyslipidemia, diabetes, CVA/TIAs, CKD and obesity presents to the hospital with chest pain. Patient states chest pain noted to be retrosternal left-sided, , sharp in nature, intermittent, ulcerating up to left jaw and left arm. Patient states symptoms have been intermittent for the last couple of days the worse 90 presentation. No change with exertion. Troponins negative x3, BNP 27, unremarkable CXR. EKG reviewed and shows normal sinus rhythm at 94 beats per minute, no acute ST and T-wave abnormality noted. Past Medical History As stated above Past Surgical History 4V CABG 2019 PTCA Hernia repair Family History: Cardiovascular disease G8 FATHER Diabetes mellitus G8 MOTHER FH: cancer G8 FATHER, Onset:Unknown G8 FATHER FH: cancer G8 FATHER, Onset:Unknown G8 FATHER Hypertension G8 FATHER Social History Denies alcohol, tobacco, or illicit drug use Allergies: Coded Allergies: Ketorolac Tromethamine (Verified Allergy, Severe, 01/04/22) Pineapple (Verified Allergy, Severe, SWELLING, 12/26/21) Uncoded Allergies: BROCCOLI (Allergy, Severe, SWELLING, 12/26/21) COCONUT (Allergy, Severe, SWELLING, 12/26/21) Home Meds Active Scripts Carvedilol (COREG) 12.5 Mg Tab, 12.5 MG PO Q12HR for 30 Days, #60 TAB 1 Refill Prov:FELECIA SANTACRUZ RESIDENT 08/07/24 Isosorbide Mononitrate (Isosorbide Mononitrate ER) 60 Mg Tab, 30 MG PO DAILY for 30 Days, #15 TAB 1 Refill Prov:FELECIA SANTACRUZ RESIDENT 08/07/24 Reported Medications Metoprolol Tartrate (Metoprolol Tartrate) 25 Mg Tab, 25 MG PO, TAB 11/23/24 Ticagrelor Base (BRILINTA) 90 Mg Tab, 1 TAB PO DAILY for 30 Days, #30 08/06/24 Gabapentin (Gabapentin) 400 Mg Cap, 4 CAP PO QPM for 90 Days, #810 08/06/24 Gabapentin (Gabapentin) 400 Mg Cap, 3 CAP PO @NOON for 90 Days, #810 08/06/24 Divalproex Sodium (Divalproex Sodium Dr) 500 Mg Tab, 1-2 TAB PO HS for 30 Days, #60 08/06/24 Lurasidone Hydrochloride (Lurasidone Hydrochloride) 40 Mg Tab, 1 TAB PO BID for 30 Days, #60 24 Fluoxetine Hcl (Fluoxetine Hcl) 40 Mg Cap, 1 CAP PO DAILY for 30 Days, #30 24 Dextromethorphan Hbr-Quinidine (NUEDEXTA) 1 Cap Cap, 1 CAP PO BID for 30 Days, #60 24 Ondansetron HCl (Ondansetron Hydrochloride) 4 Mg Tab, 1 TAB PO TID PRN for NAUSEA / VOMITING for 90 Days, #270 08/06/24 Insulin Lispro (Insulin Lispro Kwikpen) 100 Unit/Ml Inj, 30-50 UNIT SC TIDAC for 90 Days, #45 08/06/24 Hydrocodone-Acetaminophen (Hydrocodone Bitartrate/AC 10-325 mg) 1 Tab Tab, 1 TAB PO Q4-6HR PRN for PAIN for 23 Days, #138 08/06/24 Aspirin (Aspirin Low Dose) 81 Mg Chw, 1 TAB PO DAILY for 30 Days, #30 24 Zolpidem Tartrate (Zolpidem Tartrate) 10 Mg Tab, 1 TAB PO DAILY for 30 Days, #30 24 Insulin Glargine (Lantus Solostar) 100 Unit/Ml Inj, 30 UNIT SC TID for 100 Days, #30 08/06/24 Gabapentin (Gabapentin) 400 Mg Cap, 2 CAP PO QAM for 90 Days, #810 08/06/24 Discontinued Reported Medications Atorvastatin Calcium (Lipitor) 40 Mg Tab, 1 TAB PO DAILY for 30 Days, #30 08/06/24 Current Medications Current Medications Medications (Trade) Dose Ordered Sig/Carey Route PRN Reason Start Time Stop Time Status Last Admin Aspirin 81 mg DAILY PO 11/23/24 10:00 11/23/24 10:37 Atorvastatin Calcium (Lipitor) 40 mg HS PO 11/23/24 22:00 Metoprolol Succinate (Toprol Xl) 50 mg DAILY PO 11/23/24 10:00 11/23/24 10:37 Isosorbide Mononitrate (Imdur Er Tablet) 30 mg DAILY PO 11/23/24 10:00 11/23/24 10:37 Diagnostic Test (Pha) (Accu-Chek Comfort Curve T) 1 strip Q6HR 11/23/24 06:00 11/23/24 12:08 Insulin Human Regular (InsuLIN R) Q6HR SC 11/23/24 06:00 11/23/24 12:10 Dextrose 50 ml UD PRN IV Blood Sugar LESS THAN 60 11/23/24 02:45 Acetaminophen/ Hydrocodone Bitart ([place] 5/325MG Tab) 1 tab Q4HP PRN PO MODERATE PAIN (4-6 PAIN SCALE) 11/23/24 02:45 11/23/24 05:55 Temazepam (Restoril) 15 mg QHSP PRN PO FOR INSOMNIA 11/23/24 02:45 Ondansetron HCl (Zofran) 4 mg Q4HP PRN IV NAUSEA / VOMITING 11/23/24 02:45 Acetaminophen (Tylenol Tablet) 650 mg Q6HP PRN PO PAIN SCALE 1-3 OR TEMP>100.4 11/23/24 02:45 Nitroglycerin (Ntrostat Sublingual) 0.4 mg Q5MINP PRN SL FOR CHEST PAIN 11/23/24 03:45 Morphine Sulfate 2 mg Q30M PRN IV FOR CHEST PAIN 11/23/24 03:45 11/23/24 12:03 Review of Systems Constitutional: No: Fever, Chills, Sweats, Weakness, Malaise, Other Eyes: No: Pain, Vision change, Conjunctivae inflammation, Eyelid inflammation, Other, Redness ENT: No: Ear pain, Ear discharge, Nose pain, Nose discharge, Nose congestion, Mouth pain, Mouth swelling, Throat pain, Throat swelling, Other Respiratory: No: Cough, Dry, Shortness of breath, SOB with exertion, Wheezing, Hemoptysis, Pleuritic Pain, Sputum, Wheezing, Other Cardiovascular: ; No: Palpitations, Orthopnea, Paroxysmal Noc. Dyspnea, Edema, Lt Headedness, Other positive: Chest Pain Gastrointestinal: No: Nausea, Vomiting, Abdominal Pain, Diarrhea, Constipation, Melena, Hematochezia, Other Genitourinary: No Dysuria, No Frequency, No Incontinence, No Hematuria, No Retention, No Other Musculoskeletal: neck pain; No: other, shoulder pain, arm pain, back pain, hand pain, leg pain, foot pain Skin: No: Rash, Lesions, Jaundice, Bruising, Other Neurological: Other (Dizziness, headache.); No: Weakness, Numbness, Incoordination, Change in speech, Confusion, Seizures Vital Signs Vital Signs Date Time Temp Pulse Resp B/P (MAP) Pulse Ox O2 Delivery O2 Flow Rate FiO2 11/23/24 12:03 75 18 142/75 11/23/24 08:00 Room Air* 0 21 11/23/24 05:40 98.6 96 98.6 Physical Exam General appearance: Patient is well-developed, well-nourished, in no acute distress. HEENT: Exam shows: Normocephalic, atraumatic, PERRLA, EOMI Neck: Supple, no bruits Chest: Equal chest excursion bilaterally. Breath sounds normal-no rales or wheezes. Heart: Rhythm: Regular rate; no murmur or gallop Abdomen: Exam shows: Soft, nontender, nondistended Musculoskeletal: No clubbing, no cyanosis, no lower extremity edema Dermatology: Skin warm, moist. Neurological: Exam shows: Alert and oriented x4, normal speech Available prior records, labs, EKG, rhythm strips reviewed and interpreted Labs/Diagnostic Data Labs Test 11/23/24 12:07 11/23/24 08:46 11/22/24 22:28 Range/Units POC Glucose 304 H 70-106 mg/dl D-Dimer, Quantitative 0.67 H 0.0-0.49 mg/L FEU Troponin I High Sensitivity 6 </=54 ng/L White Blood Count 8.5 4.4-10.8 10^3/uL Red Blood Count 5.53 4.5-5.90 10^6/uL Hemoglobin 14.9 13.5-17.5 g/dL Hematocrit 44.9 41.0-53.0 % Mean Corpuscular Volume 81.2 80.0-100.0 fL Mean Corpuscular Hemoglobin 27.0 L 28.0-32.0 pg Mean Corpuscular Hemoglobin Concent 33.2 32.0-36.0 g/dL Red Cell Distribution Width 15.3 H 11.8-14.3 % Platelet Count 160 140-450 10^3/uL Mean Platelet Volume 8.2 6.9-10.8 fL Neutrophils (%) (Auto) 66.4 37.0-80.0 % Lymphocytes (%) (Auto) 23.5 10.0-50.0 % Monocytes (%) (Auto) 9.0 0.0-12.0 % Eosinophils (%) (Auto) 0.5 0.0-7.0 % Basophils (%) (Auto) 0.6 0.0-2.0 % Neutrophils # (Auto) 5.7 1.6-8.6 10 ^3/uL Lymphocytes # (Auto) 2.0 0.4-5.4 10 ^3/uL Monocytes # (Auto) 0.8 0-1.3 10 ^3/uL Eosinophils # (Auto) 0 0-0.8 10 ^3/uL Basophils # (Auto) 0 0-0.2 10 ^3/uL Nucleated Red Blood Cells 0.1 % Prothrombin Time 10.8 9.3-11.8 sec Prothrombin Time INR 1.02 0.9-1.15 Activated Partial Thromboplast Time 25.4 24.5-34.5 SEC Sodium Level 136 136-145 mmol/L Potassium Level 3.8 3.5-5.1 mmol/L Chloride Level 100 98-107 mmol/L Carbon Dioxide Level 27 20-31 mmol/L Anion Gap 9 5-15 Blood Urea Nitrogen 11 9-23 mg/dL Creatinine 0.89 0.700-1.30 mg/dL Glomerular Filtration Rate Calc 106 >90 mL/min BUN/Creatinine Ratio 12.4 10.0-20.0 Serum Glucose 304 H 74-106 mg/dL Calcium Level 9.8 8.7-10.4 mg/dL Total Bilirubin 0.4 0.2-1.0 mg/dL Aspartate Amino Transferase (AST) 23 13-40 U/L Alanine Aminotransferase (ALT) 34 7-40 U/L Alkaline Phosphatase 152 H 46-116 U/L B-Type Natriuretic Peptide 27.18 0-100 pg/mL Total Protein 7.7 5.7-8.2 g/dL Albumin 4.4 3.2-4.8 g/dL Assessment * Chest Pain - troponins trending negative. EKG negative for acute ST and T- wave abnormalities. Continue aspirin and statin. Continue antianginals, titrate as tolerated. Normal EF on recent echo, no significant valvular structural abnormalities. Imdur increased to home dose 60 mg daily. Ranexa 500 mg b.i.d. started. * CAD S/P CABG, PTCA - continue aspirin and statin * Diabetes - management per primary team * HTN - continue antihypertensives, titrate as tolerated * Hx CVA - continue aspirin and statin Case Discussed with Dr Huff. Troponins negative, negative acute ischemic changes on EKG. Recent normal echo. ACS ruled out. Continue medical management and antianginals, titrate as tolerated. Recent coronary angiogram 08/06/2024 showing widely patent DIOR to LAD graft, widely patent SVG to LCX, 1st OM. Widely patent RCA artery with mid and distal stenosis moderate severity at 50 and 70% with continued medical management. No further workup indicated at this time. Critical care, time spent: 45 minutes This medical document was created using an electronic medical record system with voice recognition software and computerized dictation system. Although this document has been carefully reviewed, there might still be some phonetic and typographical errors. Occasional wrong-word or ``sound-alike substitutions may have occurred due to the inherent limitations of voice recognition software. These areas are purely typographical due to imperfections of the software programs and do not reflect any compromise in the patient's medical care. Please read the chart carefully and recognize, using context, where these substitutions have occurred. Thank you for allowing me to participate in the management of this patient. The treatment plan was discussed with and agreed upon by patient/family including requesting consultants and ordering of imaging/procedures. Plan discussed with: Patient NYHA Physical activity limitations: Class3(Marked) ordinary Date of Service: Nov 23, 2024 Billing Provider: MANPREET AWAN Cardiology Common Codes: 98718-[id number] INP/OBS CARE (High), [id number] CARE 30-74 MIN MANPREET AWAN Nov 23, 2024 15:05
[2024-11-23 20:00] VITALS: PULSE 74; PULSE 77; RESP 16; O2SAT 98
[2024-11-23 21:00] VITALS: BP 132/85; PULSE 77; RESP 18; TEMP 98.4; O2SAT 98
[2024-11-23] MEDS: RANOLAZINE ER 500 MG TAB PO SCH (21:19)
[2024-11-23] MEDS: ATORVASTATIN 20 MG TAB PO SCH (21:19)
[2024-11-24 01:00] VITALS: BP 147/80; PULSE 67; RESP 18; TEMP 98; O2SAT 94
[2024-11-24 05:00] VITALS: BP 155/90; PULSE 69; RESP 18; TEMP 97.8; O2SAT 96
--- NOTE | 2024-11-24 05:37 | DVHPN2 ---
Subjective Patient sleeping, but when awakened reports extreme chest pain radiating to left arm. Reviewed: Care Plan, H&P, Labs, Medications Changes from previous H/P or p: No Changes General: Per HPI Objective Vitals Vital Signs Date Time Temp Pulse Resp B/P (MAP) Pulse Ox O2 Delivery O2 Flow Rate FiO2 11/24/24 01:25 67 18 147/80 11/24/24 01:00 98.0 94 98.0 11/23/24 20:00 Room Air* 0 21 Intake/Output Intake and Output 11/24/24 07:00 Intake Total 1050 ml Output Total 800 ml Balance 250 ml Intake Oral 1050 ml Output Urine Total 800 ml # Voids 4 General Appearance: Alert, Oriented X3, Cooperative, No acute distress HEENT: Atraumatic, PERRLA Lungs: Clear to auscultation, Normal air movement Cardiovascular: Normal S1, Normal S2 Musculoskeletal: Normal sensory function, Normal motor function Skin: Dry, Intact Psych/Mental Status: Mental status NL, Mood NL Medications Current Medications Medications Dose Ordered Sig/Carey Route Start Time Stop Time Status Last Admin Dose Admin Aspirin 81 mg DAILY PO 11/23/24 10:00 11/23/24 10:37 81 MG Atorvastatin Calcium 40 mg HS PO 11/23/24 22:00 11/23/24 21:19 40 MG Metoprolol Succinate 50 mg DAILY PO 11/23/24 10:00 11/23/24 10:37 50 MG Diagnostic Test (Pha) 1 strip Q6HR 11/23/24 06:00 11/23/24 23:27 1 STRIP Insulin Human Regular Q6HR SC 11/23/24 06:00 11/23/24 23:28 8 UNITS Dextrose 50 ml UD PRN IV 11/23/24 02:45 Acetaminophen/ Hydrocodone Bitart 1 tab Q4HP PRN PO 11/23/24 02:45 11/24/24 03:29 1 TAB Temazepam 15 mg QHSP PRN PO 11/23/24 02:45 Ondansetron HCl 4 mg Q4HP PRN IV 11/23/24 02:45 Acetaminophen 650 mg Q6HP PRN PO 11/23/24 02:45 Nitroglycerin 0.4 mg Q5MINP PRN SL 11/23/24 03:45 Morphine Sulfate 2 mg Q30M PRN IV 11/23/24 03:45 11/24/24 01:25 2 MG Isosorbide Mononitrate 60 mg DAILY PO 11/24/24 10:00 Ranolazine 500 mg BID PO 11/23/24 22:00 Laboratory Results Laboratory Tests 11/22/24 22:28 Coagulation Test 11/23/24 08:46 D-Dimer, Quantitative 0.67 mg/L FEU (0.0-0.49) H Labs and/or images reviewed: Labs reviewed by me, Image(s) reviewed by me Assessment/Plan Assessment/Plan Impression: -ACS, with Hx of CABG and occlusion of RCA graft -Primary HTN -DM -Chronic opiate use Plan: -Cardiology consult -Nitrates -Add Ranexa -Beta jamir -Asa -RISS -Check a1c Total time spent with pt: 35min. Plan discussed with: Patient, Other (RN) My Orders Orders - STACY HOLLAND NP Procedure Category Date Status Time Clean Wound With: ORDERS 11/23/24 Transmitted 15:57 Ranolazine (Ranexa Er) PHA 11/24/24 Verified 10:00 Date of Service: Nov 24, 2024 Billing Provider: STACY HOLLAND NP Common Visit Codes: [id number] INP/OBS CARE(HIGH) STACY HOLLAND NP Nov 24, 2024 05:37
[2024-11-24] MEDS ORDERED: DEXTROSE (50%) 50ML SYRG IV PRN (05:45)
[2024-11-24 05:51] VITALS: BP 155/90; PULSE 69; RESP 18
[2024-11-24] MEDS: ACCU-CHEK COMFORT CURVE STRIP VI SCH (06:39)
[2024-11-24] MEDS: InsuLIN REG 1unit/0.01ml Soln (100units/ml) SC SCH (06:42)
[2024-11-24 07:13] LABS: Chloride 103 mmol/L (98-107); Sodium 138 mmol/L (136-145)
[2024-11-24 07:14] LABS: Anion Gap 6 (5-15); Calcium 9.2 mg/dL (8.7-10.4); Carbon Dioxide 29 mmol/L (20-31)
[2024-11-24 07:19] LABS: BUN/Creatinine Ratio 15.3 (10.0-20.0); Blood Urea Nitrogen 11 mg/dL (9-23)
[2024-11-24 07:23] LABS: Glucose 190 mg/dL (74-106); Potassium 3.4 mmol/L (3.5-5.1)
[2024-11-24] MEDS ORDERED: ISOSORBIDE MONONITRATE ER 60 MG TAB PO SCH (10:00)
[2024-11-24] MEDS ORDERED: RANOLAZINE ER 500 MG TAB PO SCH (10:00)
--- NOTE | 2024-11-24 12:02 | DVHDS2 ---
Discharge Summary Date of Admission Nov 23, 2024 at 03:45 Date of Discharge: Nov 24, 2024 Admitting Diagnosis Chest pain rule out ACS Labs/Diagnostic Data: Laboratory Results Test 11/24/24 06:36 11/24/24 06:25 11/23/24 08:46 11/22/24 22:28 POC Glucose 177 mg/dl (70-106) Sodium Level 138 mmol/L (136-145) Potassium Level 3.4 mmol/L (3.5-5.1) Chloride Level 103 mmol/L (98-107) Carbon Dioxide Level 29 mmol/L (20-31) Anion Gap 6 (5-15) Blood Urea Nitrogen 11 mg/dL (9-23) Creatinine 0.72 mg/dL (0.700-1.30) Glomerular Filtration Rate Calc 113 mL/min (>90) BUN/Creatinine Ratio 15.3 (10.0-20.0) Serum Glucose 190 mg/dL (74-106) Hemoglobin A1c 10.6 % A1C (<5.7) Calcium Level 9.2 mg/dL (8.7-10.4) D-Dimer, Quantitative 0.67 mg/L FEU (0.0-0.49) Troponin I High Sensitivity 6 ng/L (</=54) White Blood Count 8.5 10^3/uL (4.4-10.8) Red Blood Count 5.53 10^6/uL (4.5-5.90) Hemoglobin 14.9 g/dL (13.5-17.5) Hematocrit 44.9 % (41.0-53.0) Mean Corpuscular Volume 81.2 fL (80.0-100.0) Mean Corpuscular Hemoglobin 27.0 pg (28.0-32.0) Mean Corpuscular Hemoglobin Concent 33.2 g/dL (32.0-36.0) Red Cell Distribution Width 15.3 % (11.8-14.3) Platelet Count 160 10^3/uL (140-450) Mean Platelet Volume 8.2 fL (6.9-10.8) Neutrophils (%) (Auto) 66.4 % (37.0-80.0) Lymphocytes (%) (Auto) 23.5 % (10.0-50.0) Monocytes (%) (Auto) 9.0 % (0.0-12.0) Eosinophils (%) (Auto) 0.5 % (0.0-7.0) Basophils (%) (Auto) 0.6 % (0.0-2.0) Neutrophils # (Auto) 5.7 10 ^3/uL (1.6-8.6) Lymphocytes # (Auto) 2.0 10 ^3/uL (0.4-5.4) Monocytes # (Auto) 0.8 10 ^3/uL (0-1.3) Eosinophils # (Auto) 0 10 ^3/uL (0-0.8) Basophils # (Auto) 0 10 ^3/uL (0-0.2) Nucleated Red Blood Cells 0.1 % Prothrombin Time 10.8 sec (9.3-11.8) Prothrombin Time INR 1.02 (0.9-1.15) Activated Partial Thromboplast Time 25.4 SEC (24.5-34.5) Total Bilirubin 0.4 mg/dL (0.2-1.0) Aspartate Amino Transferase (AST) 23 U/L (13-40) Alanine Aminotransferase (ALT) 34 U/L (7-40) Alkaline Phosphatase 152 U/L (46-116) B-Type Natriuretic Peptide 27.18 pg/mL (0-100) Total Protein 7.7 g/dL (5.7-8.2) Albumin 4.4 g/dL (3.2-4.8) Other Laboratory Tests 11/24/24 06:25 11/22/24 22:28 Brief Hx & Hospital Course: History of Present Illness 49-year-old male presents for evaluation of chest pain. Patient reports a one day history of developing left-sided sharp chest pain that radiates to his left arm and jaw. He states his symptoms started while sitting watching TV. Reports shortness for breath and nausea. No cough or fever. No other acute complaints reported. Course of hospitalization: Patient was seen by Cardiology , with last angiogram reviewed with the patient. Patient was troponins are negative. No ST-T changes. Patient was started on Imdur, Ranexa. Patient was decided to leave against medical advice today without having been counseled. Condition at Discharge: Undetermined Final Diagnosis/Problems List Chest pain rule out ACS Secondary diagnosis: -ACS, with Hx of CABG and occlusion of RCA graft -Primary HTN -DM -Chronic opiate use Discharge Disposition: AMA Discharge Instruct/Medications Diet: Regular, Consistent carbohydrate, Cardiac 2g Na,low cholest 36 Discharge Statement: "Patient was advised to return to the ER or call 911 if any headaches, dizziness, shortness of breath, chest pain, abdominal pain, bleeding, fevers, or worsening of medical condition. Patient was counseled about treatment plan, medications, possible side effects, patientverbalized understanding. All questions were answered to the best of my ability. This discharge took greater then 30 minutes in planning, reviewing documentation, counseling the patient, and discussing with other team members." ASSESSMENT ASSESSMENT Assessment Date of Service: Nov 24, 2024 Billing Provider: STACY HOLLAND NP Common Visit Codes: 54430-LAI/OBS DISCH DAY >30min STACY HOLLAND NP Nov 24, 2024 12:02
--- NOTE | 2024-11-24 12:05 | ECG ---
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
--- NOTE | 2024-11-24 13:28 | ECG ---
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
[2024-11-24] MEDS ORDERED: InsuLIN REG 1unit/0.01ml Soln (100units/ml) SC SCH (22:00)
== END 2024-11-24 08:05 | disposition left against medical advice (07) | DRG 198 ==
LOC: ER 22:14 → EDBD 22:14 → OVERFLOW 11-23 03:45 → TELE-WESTW 11-23 05:40
PROVIDERS: ADMIT Nurse Practitioner Acute Care; ATTEND Nurse Practitioner Acute Care
DX: I24.9 Acute ischemic heart disease, unspecified (principal); E11.22 Type 2 diabetes mellitus with diabetic chronic kidney disease; E11.621 Type 2 diabetes mellitus with foot ulcer; I50.9 Heart failure, unspecified; I13.0 Hypertensive heart and chronic kidney disease with heart failure and stage 1 through stage 4 chronic kidney disease, or unspecified chronic kidney disease; E11.65 Type 2 diabetes mellitus with hyperglycemia; E66.9 Obesity, unspecified; Z68.33 Body mass index [BMI] 33.0-33.9, adult; E78.5 Hyperlipidemia, unspecified; F17.210 Nicotine dependence, cigarettes, uncomplicated; F20.9 Schizophrenia, unspecified; I25.10 Atherosclerotic heart disease of native coronary artery without angina pectoris; F31.9 Bipolar disorder, unspecified; L97.519 Non-pressure chronic ulcer of other part of right foot with unspecified severity; N18.9 Chronic kidney disease, unspecified; Z53.29 Procedure and treatment not carried out because of patient's decision for other reasons; Z95.1 Presence of aortocoronary bypass graft; Z86.73 Personal history of transient ischemic attack (TIA), and cerebral infarction without residual deficits; Z83.3 Family history of diabetes mellitus; Z82.49 Family history of ischemic heart disease and other diseases of the circulatory system; Z79.891 Long term (current) use of opiate analgesic; Z79.4 Long term (current) use of insulin; Z79.899 Other long term (current) drug therapy; Z79.82 Long term (current) use of aspirin; Z88.8 Allergy status to other drugs, medicaments and biological substances; Z91.018 Allergy to other foods; I25.2 Old myocardial infarction
CPT/HCPCS: 36415; 71045; 80048; 80053; 82962; 83036; 83880; 84484; 85025; 85379; 85610; 85730; 93005; 96374; 96375; 99291; G0378; J1815; J2405

== ENCOUNTER 2025-05-02 14:07 | Inpatient (IN) | payer MEDICAID ==
[~2025-05-02] VITALS: Ht 175.3 cm; Wt 114.5 kg
[~2025-05-02 14:07] MED LIST changes: -ATOR-507 PO; +METO25TA5 PO
--- NOTE | 2025-05-02 14:42 | ED.PDOC ---
GI ASSESSMENT HPI Comments 50 y.o male with PMHx of CAD, NH, CVA, CKF, DM and HLD, presents to the ED via EMS for a chief complaint of epigastric pain radiating to his neck associated with left arm numbness. Patient took 8 x 81mg ASA and 3 x NTG at home prior to EMS arriving to his home but denied any relief. EMS gave anther dose of NTG in which slightly alleviating pain but is still present upon ED arrival. BG of 405 was recorded on scene. Patient reports he is complaint with medication and has taken his insulin today. Initial blood pressure on scene was 190 systolic but s/p NTG given by EMS, went down to 130/78. Patient denies any fever, chills, nausea, vomiting, diarrhea or SOB. Chief Complaint: Abdominal Pain Time Seen by MD: 14:22 Primary Care Provider: NICK Reviewed Notes: Nurses Notes, Transportation Attendant Notes, Medications, Allergies Allergies: Coded Allergies: Ketorolac Tromethamine (Verified Allergy, Severe, 01/04/22) Pineapple (Verified Allergy, Severe, SWELLING, 12/26/21) Uncoded Allergies: BROCCOLI (Allergy, Severe, SWELLING, 12/26/21) COCONUT (Allergy, Severe, SWELLING, 12/26/21) Home Meds Active Scripts Carvedilol (COREG) 12.5 Mg Tab, 12.5 MG PO Q12HR for 30 Days, #60 TAB 1 Refill Prov:FELECIA SANTACRUZ RESIDENT 08/07/24 Isosorbide Mononitrate (Isosorbide Mononitrate ER) 60 Mg Tab, 30 MG PO DAILY for 30 Days, #15 TAB 1 Refill Prov:FELECIA SANTACRUZ RESIDENT 08/07/24 Reported Medications Metoprolol Tartrate (Metoprolol Tartrate) 25 Mg Tab, 25 MG PO, TAB 11/23/24 Ticagrelor Base (BRILINTA) 90 Mg Tab, 1 TAB PO DAILY for 30 Days, #30 08/06/24 Gabapentin (Gabapentin) 400 Mg Cap, 4 CAP PO QPM for 90 Days, #810 08/06/24 Gabapentin (Gabapentin) 400 Mg Cap, 3 CAP PO @NOON for 90 Days, #810 08/06/24 Divalproex Sodium (Divalproex Sodium Dr) 500 Mg Tab, 1-2 TAB PO HS for 30 Days, #60 08/06/24 Lurasidone Hydrochloride (Lurasidone Hydrochloride) 40 Mg Tab, 1 TAB PO BID for 30 Days, #60 24 Fluoxetine Hcl (Fluoxetine Hcl) 40 Mg Cap, 1 CAP PO DAILY for 30 Days, #30 24 Dextromethorphan Hbr-Quinidine (NUEDEXTA) 1 Cap Cap, 1 CAP PO BID for 30 Days, #60 24 Ondansetron HCl (Ondansetron Hydrochloride) 4 Mg Tab, 1 TAB PO TID PRN for NAUSEA / VOMITING for 90 Days, #270 08/06/24 Insulin Lispro (Insulin Lispro Kwikpen) 100 Unit/Ml Inj, 30-50 UNIT SC TIDAC for 90 Days, #45 08/06/24 Hydrocodone-Acetaminophen (Hydrocodone Bitartrate/AC 10-325 mg) 1 Tab Tab, 1 TAB PO Q4-6HR PRN for PAIN for 23 Days, #138 08/06/24 Aspirin (Aspirin Low Dose) 81 Mg Chw, 1 TAB PO DAILY for 30 Days, #30 08/06/24 Zolpidem Tartrate (Zolpidem Tartrate) 10 Mg Tab, 1 TAB PO DAILY for 30 Days, #30 08/06/24 Insulin Glargine (Lantus Solostar) 100 Unit/Ml Inj, 30 UNIT SC TID for 100 Days, #30 08/06/24 Gabapentin (Gabapentin) 400 Mg Cap, 2 CAP PO QAM for 90 Days, #810 08/06/24 Information Source: Patient, Emergency Med Personnel Mode of Arrival: EMS Timing: Hours Duration: Since onset Prehospital treatment: 12 Lead EKG, Accucheck (405), Machine Guide Base Winder, NTG Quality: Sharp Vomitus: None Stool: Normal Severity: Moderate Recent: None Recent Hx of: None Modifying Factors: Nothing Associated sign and symptoms: Abdominal Pain Past Medical History PAST MEDICAL HISTORY: CAD, CKF, CVA, DM, High Lipids, NH, PE, TIA Surgical History: CABG, Hernia Repair, PTCA Family History Family History: Reviewed,noncontributory to illness, Family hx of DM, Family hx of HTN Social History Smoker: Cigarettes, Less Than 1 Pack/Day Alcohol: Rarely Drugs: Denies Drug Use Lives In: Home Constitutional: denies: chills, diaphoresis, fatigue, fever, malaise, sweats, weakness, others EENTM: denies: blurred vision, double vision, ear bleeding, ear discharge, ear drainage, ear pain, ear ringing, eye pain, eye redness, hearing loss, mouth pain, mouth swelling, nasal discharge, nose bleeding, nose congestion, nose pain, photophobia, tearing, throat pain, throat swelling, voice changes, others Respiratory: denies: cough, hemoptysis, orthopnea, SOB at rest, shortness of breath, SOB with excertion, stridor, wheezing, others Cardiovascular: denies: chest pain, dizzy spells, diaphoresis, Dyspnea on exertion, edema, irregular heart beat, left arm pain, lightheadedness, palpitations, PND, syncope, others Gastrointestinal: reports: abdominal pain; denies: abdomen distended, blood streaked bowels, constipated, diarrhea, dysphagia, difficulty swallowing, hematemesis, melena, nausea, poor appetite, poor fluid intake, rectal bleeding, rectal pain, vomiting, others Genitourinary: denies: burning, dysuria, flank pain, frequency, hematuria, incontinence, penile discharge, penile sore, pain, testicle pain, testicle swelling, urgency, others Neurological: reports: numbness (left arm ); denies: dizziness, fainting, headache, left sided numbness, left sided weakness, paresthesia, pre-existing deficit, right sided numbness, right sided weakness, seizure, speech problems, tingling, tremors, weakness, others Musculoskeletal: denies: back pain, gout, joint pain, joint swelling, muscle pain, muscle stiffness, neck pain, others Integumetry: denies: bruises, change in color, change in hair/nails, dryness, laceration, lesions, lumps, rash, wounds, others Allergic/Immunocompromised: denies: Difficulty Healing, Frequent Infections, Hives, Itching, others Hematologic/Lymphatic: denies: anemia, blood clots, easy bleeding, easy bruising, swollen glands, others Endocrine: denies: excessive hunger, excessive sweating, excessive thirst, excessive urination, flushing, intolerance to cold, intolerance to heat, unexplained weight gain, unexplained weight loss, others Psychiatric: denies: anxiety, bipolar disorder, depression, hopeless, panic disorder, schizophrenia, sleepless, suicidal, others All Other Systems: Reviewed and Negative Physical Exam General Appearance: Moderate Distress HEENT: Normal ENT Inspection, Pharynx Normal, TMs Normal Neck: Full Range of Motion, Non-Tender, Normal, Normal Inspection Respiratory: Chest Non-Tender, Lungs Clear, No Accessory Muscle Use, No Respiratory Distress, Normal Breath Sounds Cardiovascular: No Edema, No JVD, No Murmur, No Gallop, Normal Peripheral Pulses, Regular Rate/Rhythm Breast Exam: Deferred Gastrointestinal: No Organomegaly, Non Tender, No Pulsatile Mass, Normal Bowel Sounds, Soft Genitalia: Deferred Pelvic: Deferred Rectal: Deferred Extremities: No calf tenderness, Normal capillary refill, Normal range of motion, Non-tender, No pedal edema, Other (Right lateral four toes amputated after a shark bite) Musculoskeletal : Apperance: Normal Neurologic: Alert, angio technologist II-XII nml as Tested, No Motor Deficits, Normal Affect, Normal Mood, No Sensory Deficits Cerebellar Function: NOT DONE Reflexes: NOT DONE Skin: Dry, Normal Color, Warm Peripheral Pulses: 3+ Radial (R), 3+ Radial (L) Lymphatic: No Adenopathy EKG EKG : Pulse Rate (adult): 95 Was a procedure done? Was a procedure done?: No GI differential Dx Differential Diagnosis: Constipation, Diverticular disease, Esophagitis, Gastritis/PUD, Gastroenteritis, Inflammatory BD, Electrolyte Imbalance, Viral X-Ray, Labs, Meds, VS Vital Signs Date Time Temp Pulse Resp B/P (MAP) Pulse Ox O2 Delivery O2 Flow Rate FiO2 05/02/25 15:37 89 16 134/78 05/02/25 15:03 95 05/02/25 14:50 95 19 94 Room Air* 0 21 05/02/25 14:50 98.5 95 19 146/96 (113) 94 98.5 05/02/25 14:27 99.9 99 20 114/78 94 99.9 05/02/25 14:23 96 Lab Test 05/02/25 15:48 05/02/25 14:52 05/02/25 14:32 Range/Units Troponin I High Sensitivity 4 4 </=54 ng/L White Blood Count 7.6 4.4-10.8 10^3/uL Red Blood Count 5.24 4.5-5.90 10^6/uL Hemoglobin 15.3 13.5-17.5 g/dL Hematocrit 44.9 41.0-53.0 % Mean Corpuscular Volume 85.8 80.0-100.0 fL Mean Corpuscular Hemoglobin 29.3 28.0-32.0 pg Mean Corpuscular Hemoglobin Concent 34.1 32.0-36.0 g/dL Red Cell Distribution Width 14.1 11.8-14.3 % Platelet Count 138 L 140-450 10^3/uL Mean Platelet Volume 9.3 6.9-10.8 fL Neutrophils (%) (Auto) 62.8 37.0-80.0 % Lymphocytes (%) (Auto) 28.1 10.0-50.0 % Monocytes (%) (Auto) 8.0 0.0-12.0 % Eosinophils (%) (Auto) 0.8 0.0-7.0 % Basophils (%) (Auto) 0.3 0.0-2.0 % Neutrophils # (Auto) 4.7 1.6-8.6 10 ^3/uL Lymphocytes # (Auto) 2.1 0.4-5.4 10 ^3/uL Monocytes # (Auto) 0.6 0-1.3 10 ^3/uL Eosinophils # (Auto) 0.1 0-0.8 10 ^3/uL Basophils # (Auto) 0 0-0.2 10 ^3/uL Nucleated Red Blood Cells 0.1 % Sodium Level 137 136-145 mmol/L Potassium Level 4.2 3.5-5.1 mmol/L Chloride Level 99 98-107 mmol/L Carbon Dioxide Level 27 20-31 mmol/L Anion Gap 11 5-15 Blood Urea Nitrogen 9 9-23 mg/dL Creatinine 1.03 0.700-1.30 mg/dL Glomerular Filtration Rate Calc 89 >90 mL/min BUN/Creatinine Ratio 8.7 L 10.0-20.0 Serum Glucose 447 *H 74-106 mg/dL Calcium Level 9.2 8.7-10.4 mg/dL Total Bilirubin 0.5 0.2-1.0 mg/dL Aspartate Amino Transferase (AST) 25 13-40 U/L Alanine Aminotransferase (ALT) 39 7-40 U/L Alkaline Phosphatase 168 H 46-116 U/L Total Protein 7.3 5.7-8.2 g/dL Albumin 4.3 3.2-4.8 g/dL Urine Color Light-yellow Yellow Urine Clarity Clear Clear Urine pH 5.5 5.0-9.0 Urine Specific Tofte 1.041 H 1.001-1.035 Urine Protein Negative Negative Urine Ketones Negative Negative Urine Blood Negative Negative /uL Urine Nitrite Negative Negative Urine Bilirubin Negative Negative Urine Urobilinogen Normal Negative mg/dL Urine Leukocyte Esterase Negative Negative /uL Urine RBC 2 0 - 3 /hpf Urine Microscopic WBC 11 H 0-3 /HPF Urine Squamous Epithelial Cells None seen <5 /hpf Urine Bacteria None seen None Seen /hpf Urine Glucose 4+ H Normal mg/dL Current Medications Medications (Trade) Dose Ordered Sig/Acrey Route Start Time Stop Time Status Last Admin Sodium Chloride 1,000 ml @ 1,000 mls/hr Q1H ONCE IV 05/02/25 15:00 05/02/25 15:59 DC 05/02/25 15:37 Morphine Sulfate 4 mg ONCE ONCE IV 05/02/25 15:15 05/02/25 15:16 DC 05/02/25 15:37 Ondansetron HCl (Zofran) 4 mg ONCE ONCE IV 05/02/25 15:15 05/02/25 15:16 DC 05/02/25 15:38 Insulin Human Regular (InsuLIN R) 3 units ONCE ONCE IV 05/02/25 15:15 05/02/25 15:16 DC 05/02/25 15:37 Patient alert. Complaining of chest pain. Cardiac history. Vitals stable. EKG does show old changes. He is on warfarin. Establish intravenous access. Was given fluids. Was given morphine. Was given Zofran. Was given insulin. Explained to the patient. Continue monitoring. Time of 1ST Reevaluation: 14:35 Reevaluation 1ST: Unchanged Patient Education/Counseling: Diagnosis, Treatment, Prognosis Family Education/Counseling: No Family Present SEPSIS Sepsis Screen Physician Orders Troponin-I Hs (05/03/25 00:00) Troponin-I Hs (05/02/25 17:32) Sodium Chloride 0.9% (05/02/25 15:00) Electrocardigram (05/02/25 15:05) Vital Signs Date Time Temp Pulse Resp B/P (MAP) Pulse Ox O2 Delivery O2 Flow Rate FiO2 05/02/25 15:37 89 16 134/78 05/02/25 15:03 95 05/02/25 14:50 95 19 94 Room Air* 0 21 05/02/25 14:50 98.5 95 19 146/96 (113) 94 98.5 05/02/25 14:27 99.9 99 20 114/78 94 99.9 05/02/25 14:23 96 Laboratory Tests Test 05/02/25 14:52 White Blood Count 7.6 10^3/uL (4.4-10.8) Medications Medications Dose Ordered Sig/Carey Route Start Time Stop Time Status Last Admin Dose Admin Insulin Human Regular 3 units ONCE ONCE IV 05/02/25 15:15 05/02/25 15:16 DC 05/02/25 15:37 Morphine Sulfate 4 mg ONCE ONCE IV 05/02/25 15:15 05/02/25 15:16 DC 05/02/25 15:37 Ondansetron HCl 4 mg ONCE ONCE IV 05/02/25 15:15 05/02/25 15:16 DC 05/02/25 15:38 Sodium Chloride 1,000 ml @ 1,000 mls/hr Q1H ONCE IV 05/02/25 15:00 05/02/25 15:59 DC 05/02/25 15:37 Departure 1 Departure Time of Disposition: 16:25 Impression: Primary Impression: Chest pain of unknown etiology Additional Impression: Uncontrolled diabetes mellitus Qualified Codes: E13.65 - Other specified diabetes mellitus with hyperglycemia Disposition: ADMITTED INPATIENT Admit to: Med Surg Condition: Guarded Critical Care Note Critical Care Time?: No Stability Stability form required: No I personally scribed for ALEXANDER DOMÍNGUEZ MD ([email or web address]) on 05/02/25 at 14:42. Electronically submitted by Nohemi Howell ([facility]). I personally scribed for ALEXANDER DOMÍNGUEZ MD ([email or web address]) on 05/02/25 at 15:03. Electronically submitted by Nohemi Howell ([facility]). ALEXANDER DOMÍNGUEZ MD May 02, 2025 14:42
[2025-05-02 14:50] VITALS: PULSE 95; RESP 19; O2SAT 94
[2025-05-02 14:53] LABS: Urine Protein, UAD Negative (Negative)
[2025-05-02 15:01] LABS: Hematocrit 44.9 % (41.0-53.0); Hemoglobin 15.3 g/dL (13.5-17.5); Mean Corpuscular Hemoglobin 29.3 pg (28.0-32.0); Mean Corpuscular Volume 85.8 fL (80.0-100.0); Nucleated Red Blood Cells % 0.1 %
[2025-05-02 15:17] LABS: Alanine Aminotransferase 39 U/L (7-40); Albumin 4.3 g/dL (3.2-4.8); Anion Gap 11 (5-15); BUN/Creatinine Ratio 8.7 (10.0-20.0); Blood Urea Nitrogen 9 mg/dL (9-23); Calcium 9.2 mg/dL (8.7-10.4); Carbon Dioxide 27 mmol/L (20-31); Chloride 99 mmol/L (98-107); Potassium 4.2 mmol/L (3.5-5.1); Sodium 137 mmol/L (136-145); Total Protein 7.3 g/dL (5.7-8.2)
[2025-05-02 15:18] LABS: Bilirubin, Total 0.5 mg/dL (0.2-1.0)
[2025-05-02 15:24] LABS: Alkaline Phosphatase 168 U/L (46-116)
[2025-05-02 15:36] LABS: Glucose 447 mg/dL (74-106)
[2025-05-02] MEDS: InsuLIN REG 1unit/0.01ml Soln (100units/ml) IV ONE ×2 (15:37→21:30)
[2025-05-02] MEDS: MORPHINE SULFATE 4 MG/ML SYR/VIAL IV ONE (15:37)
[2025-05-02] MEDS: SODIUM CHLORIDE 0.9% 1,000 ML IV ONE ×2 (15:37→17:44)
[2025-05-02] MEDS: ONDANSETRON HCL 4 MG/2 ML VIAL IV ONE (15:38)
[2025-05-02] MEDS: MORPHINE SULFATE INJ 2 MG/ml SYRG IV ONE (18:31)
[2025-05-02] MEDS: MORPHINE SULFATE INJ 2 MG/ml SYRG ONE (18:31)
[2025-05-02 19:46] VITALS: PULSE 80; RESP 18; O2SAT 98
[2025-05-02] MEDS ORDERED: DEXTROSE (50%) 50ML SYRG IV PRN (20:45)
[2025-05-02] MEDS ORDERED: DOCUSATE SOD 100 MG CAP PO PRN (20:45)
[2025-05-02] MEDS ORDERED: ONDANSETRON HCL 4 MG/2 ML VIAL IV PRN (20:45)
[2025-05-02] MEDS ORDERED: ACETAMINOPHEN 325 MG TAB PO PRN (20:45)
[2025-05-02] MEDS: MORPHINE SULFATE INJ 2 MG/ml SYRG IV PRN (21:12)
[2025-05-02] MEDS: SODIUM CHLORIDE 0.9% 1,000 ML IV SCH (21:13)
[2025-05-02] MEDS: METOPROLOL TARTRATE 25 MG TAB PO SCH (21:29)
[2025-05-02] MEDS: GABAPENTIN 300 MG CAP PO SCH (21:30)
[2025-05-02] MEDS: InsuLIN REG 1unit/0.01ml Soln (100units/ml) ONE (21:31)
[2025-05-02] MEDS: METOPROLOL TARTRATE 25 MG TAB ONE (21:33)
[2025-05-02] MEDS: GABAPENTIN 300 MG CAP ONE (21:33)
--- NOTE | 2025-05-02 21:50 | DVHHP2 ---
History of Present Illness Reason for Visit: Chest pain of unknown etiology History of Present Illness The patient is a 50-year-old male with multiple past medical history including Coronary artery disease, hypertension, CKF, CVA, DM, and PE who presented to [facility] ED with complaint of chest pain. Patient reports has been experiencing substernal chest pain radiating to his neck, epigastric abdominal pain, associated left arm numbness, getting worse that prompted this visit. Patient was seen and evaluated in the ED, laboratory data shows WBC 7.6, platelets 138, sodium 137, potassium 4.2, BUN 9, creatinine 1.03, GFR 89, glucose 447, calcium 9.2, troponin 4, blood pressure 140/80, pulse 80, temperature 98.1 F, O2 saturation 98% on room air. Please see medication orders section in the computer. On my assessment, patient denied chest pain at this moment, no headache, no dizziness, no numbness, no diaphoresis, no shortness of breaths, no nausea, no vomiting, no fever, no chills. Patient was admitted for further evaluation and medical management. 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 Past Social History The patient lives at home, smokes cigarettes less than 1 pack per day, rarely drinks alcohol, denies illicit drugs abuse. Review of Systems Constitutional: Yes: Weakness; No: Fever, Chills, Sweats, Malaise, Other Eyes: No: Pain, Vision change, Conjunctivae inflammation, Eyelid inflammation, Other, Redness ENT: No: Ear pain, Ear discharge, Nose pain, Nose discharge, Nose congestion, Mouth pain, Mouth swelling, Throat pain, Throat swelling, Other Respiratory: No: Cough, Dry, Shortness of breath, SOB with excertion, Wheezing, Hemoptysis, Pleuritic Pain, Sputum, Wheezing, Other Cardiovascular: Chest Pain; No: Palpitations, Orthopnea, Paroxysmal Noc. Dyspnea, Edema, Lt Headedness, Other Gastrointestinal: Abdominal Pain; No: Nausea, Vomiting, Diarrhea, Constipation, Melena, Hematochezia, Other Genitourinary: No Dysuria, No Frequency, No Incontinence, No Hematuria, No Retention, No Other Musculoskeletal: other (Left toes amputation); No: neck pain, shoulder pain, arm pain, back pain, hand pain, leg pain, foot pain Skin: No: Rash, Lesions, Jaundice, Bruising, Other Neurological: Numbness (Left arm); No: Weakness, Incoordination, Change in speech, Confusion, Seizures, Other Allergies: Coded Allergies: Ketorolac Tromethamine (Verified Allergy, Severe, 01/04/22) Pineapple (Verified Allergy, Severe, SWELLING, 12/26/21) Uncoded Allergies: BROCCOLI (Allergy, Severe, SWELLING, 12/26/21) COCONUT (Allergy, Severe, SWELLING, 12/26/21) Medications Current Medications Medications Dose Ordered Sig/Carey Route Start Time Stop Time Status Last Admin Dose Admin Fluoxetine HCl 40 mg DAILY PO 05/03/25 10:00 Aspirin 81 mg DAILY PO 05/03/25 10:00 Clopidogrel Bisulfate 75 mg DAILY PO 05/03/25 10:00 Metoprolol Tartrate 25 mg BID PO 05/02/25 22:00 05/02/25 21:29 25 MG Gabapentin 300 mg TID PO 05/02/25 22:00 05/02/25 21:30 300 MG Diagnostic Test (Pha) 1 strip IQ4HR 05/03/25 00:00 Insulin Human Regular IQ4HR SC 05/03/25 00:00 Dextrose 50 ml UD PRN IV 05/02/25 20:45 Sodium Chloride 1,000 ml @ 60 mls/hr [id number] IV 05/02/25 20:45 05/02/25 21:13 60 MLS/HR Acetaminophen/ Hydrocodone Bitart 1 tab Q4HP PRN PO 05/02/25 20:45 Ondansetron HCl 4 mg Q4HP PRN IV 05/02/25 20:45 Docusate Sodium 100 mg BIDPRN PRN PO 05/02/25 20:45 Acetaminophen 650 mg Q6HP PRN PO 05/02/25 20:45 Morphine Sulfate 2 mg Q4HPRN PRN IV 05/02/25 20:45 05/02/25 21:12 2 MG Exam Vital Signs Vital Signs Date Time Temp Pulse Resp B/P (MAP) Pulse Ox O2 Delivery O2 Flow Rate FiO2 05/02/25 21:45 98.1 77 18 142/87 (105) 98 98.1 05/02/25 19:46 Room Air* 0 21 General Appearance: Alert, Oriented X3, Cooperative, No acute distress HEENT: Atraumatic, PERRLA, EOMI, Mucous membr. moist/pink Respiratory: Normal air movement Cardiovascular: Regular rate, Normal S1, Normal S2, No murmurs Abdominal: Normal bowel sounds, Soft, No tenderness, No hepatospenomegaly, No masses Extremities: No clubbing, No cyanosis, No edema, Normal pulses, No tenderness/swelling, Other (Left toes amputation) Skin: No rashes, No significant lesion Neuro: Normal speech, Normal tone, Sensation intact, Cranial nerves 3-12 NL, Reflexes 2+, Other (Generalized weakness) Psych/Mental Status: Mental status NL, Mood NL Labs/Xrays Labs Test 05/02/25 21:00 05/02/25 15:48 05/02/25 14:52 05/02/25 14:32 Range/Units POC Glucose 370 H 70-106 mg/dl Troponin I High Sensitivity 4 </=54 ng/L White Blood Count 7.6 4.4-10.8 10^3/uL Red Blood Count 5.24 4.5-5.90 10^6/uL Hemoglobin 15.3 13.5-17.5 g/dL Hematocrit 44.9 41.0-53.0 % Mean Corpuscular Volume 85.8 80.0-100.0 fL Mean Corpuscular Hemoglobin 29.3 28.0-32.0 pg Mean Corpuscular Hemoglobin Concent 34.1 32.0-36.0 g/dL Red Cell Distribution Width 14.1 11.8-14.3 % Platelet Count 138 L 140-450 10^3/uL Mean Platelet Volume 9.3 6.9-10.8 fL Neutrophils (%) (Auto) 62.8 37.0-80.0 % Lymphocytes (%) (Auto) 28.1 10.0-50.0 % Monocytes (%) (Auto) 8.0 0.0-12.0 % Eosinophils (%) (Auto) 0.8 0.0-7.0 % Basophils (%) (Auto) 0.3 0.0-2.0 % Neutrophils # (Auto) 4.7 1.6-8.6 10 ^3/uL Lymphocytes # (Auto) 2.1 0.4-5.4 10 ^3/uL Monocytes # (Auto) 0.6 0-1.3 10 ^3/uL Eosinophils # (Auto) 0.1 0-0.8 10 ^3/uL Basophils # (Auto) 0 0-0.2 10 ^3/uL Nucleated Red Blood Cells 0.1 % Sodium Level 137 136-145 mmol/L Potassium Level 4.2 3.5-5.1 mmol/L Chloride Level 99 98-107 mmol/L Carbon Dioxide Level 27 20-31 mmol/L Anion Gap 11 5-15 Blood Urea Nitrogen 9 9-23 mg/dL Creatinine 1.03 0.700-1.30 mg/dL Glomerular Filtration Rate Calc 89 >90 mL/min BUN/Creatinine Ratio 8.7 L 10.0-20.0 Serum Glucose 447 *H 74-106 mg/dL Calcium Level 9.2 8.7-10.4 mg/dL Total Bilirubin 0.5 0.2-1.0 mg/dL Aspartate Amino Transferase (AST) 25 13-40 U/L Alanine Aminotransferase (ALT) 39 7-40 U/L Alkaline Phosphatase 168 H 46-116 U/L Total Protein 7.3 5.7-8.2 g/dL Albumin 4.3 3.2-4.8 g/dL Urine Color Light-yellow Yellow Urine Clarity Clear Clear Urine pH 5.5 5.0-9.0 Urine Specific [place] 1.041 H 1.001-1.035 Urine Protein Negative Negative Urine Ketones Negative Negative Urine Blood Negative Negative /uL Urine Nitrite Negative Negative Urine Bilirubin Negative Negative Urine Urobilinogen Normal Negative mg/dL Urine Leukocyte Esterase Negative Negative /uL Urine RBC 2 0 - 3 /hpf Urine Microscopic WBC 11 H 0-3 /HPF Urine Squamous Epithelial Cells None seen <5 /hpf Urine Bacteria None seen None Seen /hpf Urine Glucose 4+ H Normal mg/dL SEPSIS Sepsis Screen Date sepsis recognized/suspect: May 02, 2025 Time Sepsis recognized/suspect: 1951 Recent Procedure: No On Antibiotic Therapy: No Respiratory Rate >20: No Heart Rate >90: No Temp<36 C (96.8 F) or >38.3 C: No SBP <90 or MAP <65 mmHG: No New Acute Mental Status Change: No Is the patient on CPAP, BIPAP,: No Physician Orders Troponin-I Hs (05/03/25 00:00) Electrocardigram (05/02/25 15:05) Fluoxetine Capsule (Prozac Capsule) (05/03/25 10:00) Aspirin Tablet (05/03/25 10:00) Metoprolol Tartrate Tablet (Lopressor Ta (05/02/25 22:00) Gabapentin Capsule (Neurontin Capsule) (05/02/25 22:00) Consistent Carb(Ccho)Diabetes (05/03/25 Breakfast) Glucose Blood (Accu-Chek Comfort Curve T (05/03/25 00:00) Insulin R (Human) (Insulin R) (05/03/25 00:00) Dextrose 50% Syringe (05/02/25 20:45) Allergies (05/02/25:32) Code Status (05/02/25 20:32) Sodium Chloride 0.9% (05/02/25 20:45) Oxygen Per Hour (05/02/25 20:32) Hydrocodone-Acet 5/325mg Tab (Vestal /32 (05/02/25 20:45) Ondansetron Hcl (Zofran) (05/02/25 20:45) Docusate Sodium Capsule (Colace Capsule) (05/02/25 20:45) Complete Blood Count (05/03/25 04:00) Comprehensive Metabolic Panel (05/03/25 04:00) Condition: Serious (05/02/25 20:32) Acetaminophen Tablet (Tylenol Tablet) (05/02/25 20:45) Bedrest With Bathroom Privileg (05/02/25 20:32) Morphine Sulfate Injection (05/02/25 20:45) Sequential Compression Device (05/02/25 ) Clopidogrel Bisulfate (Plavix) (05/03/25 10:00) Admit (05/02/25 21:49) Nitroglycerin Sublingual (Ntrostat Subli (05/02/25 22:00) Morphine Sulfate Injection (05/02/25 22:00) Stat Ekg For Chest Pain (05/02/25 21:49) Notify Md Of Changes From Base (05/02/25 21:49) Sports Medicine Trainer For 24 Hours (05/02/25 21:49) Emergency Dysrhythmia Protocol (05/02/25 21:49) Rhythm Strips Once Every Shift (05/02/25 21:49) Oxygen By Nasal Cannula (05/02/25 21:49) Vital Signs Date Time Temp Pulse Resp B/P (MAP) Pulse Ox O2 Delivery O2 Flow Rate FiO2 05/02/25 21:45 98.1 77 18 142/87 (105) 98 98.1 05/02/25 21:29 80 140/80 05/02/25 21:12 78 18 140/78 05/02/25 19:46 98.1 80 18 140/80 (100) 98 98.1 05/02/25 19:46 80 18 98 Room Air* 0 21 05/02/25 19:01 78 20 140/87 05/02/25 18:31 78 18 158/86 05/02/25 18:31 86 16 158/86 (110) 98 05/02/25 17:44 78 18 136/82 05/02/25 15:37 89 16 134/78 05/02/25 15:03 95 05/02/25 14:50 95 19 94 Room Air* 0 05/02/25 14:50 98.5 95 19 146/96 (113) 94 98.5 05/02/25 14:27 99.9 99 20 114/78 94 99.9 05/02/25 14:23 96 Laboratory Tests Test 05/02/25 14:52 White Blood Count 7.6 10^3/uL (4.4-10.8) Medications Medications Dose Ordered Sig/Carey Route Start Time Stop Time Status Last Admin Dose Admin Gabapentin 300 mg TID PO 05/02/25 22:00 05/02/25 21:30 300 MG Insulin Human Regular 3 units ONCE ONCE IV 05/02/25 15:15 05/02/25 15:16 DC 05/02/25 15:37 3 UNITS Insulin Human Regular 20 units ONCE ONCE IV 05/02/25 21:15 05/02/25 21:16 DC 05/02/25 21:30 20 UNITS Metoprolol Tartrate 25 mg BID PO 05/02/25 22:00 05/02/25 21:29 25 MG Morphine Sulfate 2 mg ONCE ONCE IV 05/02/25 18:30 05/02/25 18:31 DC 05/02/25 18:31 2 MG Morphine Sulfate 2 mg Q4HPRN PRN IV 05/02/25 20:45 05/02/25 21:12 2 MG Morphine Sulfate 4 mg ONCE ONCE IV 05/02/25 15:15 05/02/25 15:16 DC 05/02/25 15:37 4 MG Ondansetron HCl 4 mg ONCE ONCE IV 05/02/25 15:15 05/02/25 15:16 DC 05/02/25 15:38 4 MG Sodium Chloride 1,000 ml @ 60 mls/hr [id number] IV 05/02/25 20:45 05/02/25 21:13 60 MLS/HR Sodium Chloride 1,000 ml @ 150 mls/hr Q6H40M ONCE IV 05/02/25 15:00 05/02/25 21:39 DC 05/02/25 17:44 150 MLS/HR Sodium Chloride 1,000 ml @ 1,000 mls/hr Q1H ONCE IV 05/02/25 15:00 05/02/25 15:59 DC 05/02/25 15:37 1,000 MLS/HR Assessment/Plan Assessment/Plan Chest pain of unknown etiology Abdominal pain Uncontrolled diabetes mellitus Generalized weakness Other specified diabetes mellitus with hyperglycemia Plan 1. Admit to telemetry unit 2. Breathing treatment 3. Pain control management 4. Management of fluids and electrolytes 5. Consultation for hospitalist 6. Diagnostic tests chest x-ray 7. DVT prophylaxis-on Plavix 8. Repeat labs CBC, CMP in a.m. 9. Continue with current medical management 10. Treatment plan discussed with patient and RN. Patient verbalized understanding. Plan discussed with: Patient, Other (RN) My Orders Orders - SONYA CORDOBA DNP Procedure Category Date Status Time Fluoxetine Capsule PHA 05/03/25 In Process (Prozac Capsule) 10:00 Aspirin Tablet PHA 05/03/25 In Process 10:00 Metoprolol Tartrate PHA 05/02/25 In Process Tablet (Lopressor Ta 22:00 Gabapentin Capsule PHA 05/02/25 In Process (Neurontin Capsule) 22:00 Consistent DIET 05/03/25 Transmitted Carb(Ccho)Diabetes Breakfast Glucose Blood PHA 05/03/25 In Process (Accu-Chek Comfort 00:00 Insulin R (Human) PHA 05/03/25 In Process (Insulin R) 00:00 Dextrose 50% Syringe PHA 05/02/25 In Process 20:45 Allergies ADOLFO 05/02/25 In Process 20:32 Code Status CODE 05/02/25 Transmitted 20:32 Sodium Chloride 0.9% PHA 05/02/25 In Process 20:45 Oxygen Per Hour RT 05/02/25 Transmitted 20:32 Hydrocodone-Acet PHA 05/02/25 In Process 5/325mg Tab (Vestal 20:45 Ondansetron Hcl PHA 05/02/25 In Process (Zofran) 20:45 Docusate Sodium PHA 05/02/25 In Process Capsule (Colace 20:45 Complete Blood Count LAB 05/03/25 Verified 04:00 Comprehensive LAB 05/03/25 Verified Metabolic Panel 04:00 Condition: Serious ADOLFO 05/02/25 In Process 20:32 Acetaminophen Tablet PHA 05/02/25 In Process (Tylenol Tablet) 20:45 Bedrest With Bathroom ADOLFO 05/02/25 In Process Privileg 20:32 Morphine Sulfate PHA 05/02/25 In Process Injection 20:45 Sequential ADOLFO 05/02/25 In Process Compression Device Clopidogrel Bisulfate PHA 05/03/25 In Process (Plavix) 10:00 Admit ADMIT 05/02/25 Verified 21:49 Nitroglycerin [facility] 05/02/25 Verified Sublingual (Ntrostat 22:00 Morphine Sulfate PHA 05/02/25 Verified Injection 22:00 Stat Ekg For Chest [facility] 05/02/25 Verified Pain 21:49 Notify Of Changes [facility] 05/02/25 Verified From Base 21:49 Sports Medicine Trainer For [facility] 05/02/25 Verified 24 Hours 21:49 Emergency Dysrhythmia [facility] 05/02/25 Verified Protocol 21:49 Rhythm Strips Once [facility] 05/02/25 Verified Every Shift 21:49 Oxygen By Nasal RT 05/02/25 Verified Cannula 21:49 Problem List: (1) Chest pain of unknown etiology (2) Abdominal pain (3) Uncontrolled diabetes mellitus (4) Generalized weakness (5) Other specified diabetes mellitus with hyperglycemia Date of Service: May 02, 2025 Billing Provider: SONYA CORDOBA DNP Common Visit Codes: [id number] INP/OBS CARE (HIGH) SONYA CORDOBA DNP May 02, 2025 21:50
[2025-05-02] MEDS ORDERED: NITROGLYCERIN 0.4 MG SL TAB SL PRN (22:00)
[2025-05-02 23:59] VITALS: BP 136/86; PULSE 61; RESP 17; TEMP 97.6; O2SAT 95
[2025-05-03] VITALS (11 sets, daily range): BP systolic 115–198; BP diastolic 86–120; PULSE 59–69; RESP 17–20; TEMP 86–98.1; O2SAT 95–98
[2025-05-03] MEDS: ACCU-CHEK COMFORT CURVE STRIP VI SCH (00:08)
[2025-05-03] MEDS: InsuLIN REG 1unit/0.01ml Soln (100units/ml) SC SCH (00:34)
[2025-05-03 07:29] LABS: Hematocrit 41.4 % (41.0-53.0); Hemoglobin 14.4 g/dL (13.5-17.5); Mean Corpuscular Hemoglobin 28.9 pg (28.0-32.0); Mean Corpuscular Volume 83.4 fL (80.0-100.0); Nucleated Red Blood Cells % 0.0 %
[2025-05-03 07:53] LABS: Alanine Aminotransferase 33 U/L (7-40); Albumin 3.8 g/dL (3.2-4.8); Alkaline Phosphatase 113 U/L (46-116); Anion Gap 11 (5-15); BUN/Creatinine Ratio 7.5 (10.0-20.0); Carbon Dioxide 26 mmol/L (20-31); Chloride 102 mmol/L (98-107); Potassium 3.6 mmol/L (3.5-5.1); Sodium 139 mmol/L (136-145); Total Protein 6.7 g/dL (5.7-8.2)
[2025-05-03 07:54] LABS: Bilirubin, Total 0.7 mg/dL (0.2-1.0)
[2025-05-03 08:01] LABS: Blood Urea Nitrogen 5 mg/dL (9-23); Calcium 8.6 mg/dL (8.7-10.4); Glucose 227 mg/dL (74-106)
[2025-05-03] MEDS: CLOPIDOGREL BISULFATE 75 MG TAB PO SCH (09:38)
--- NOTE | 2025-05-03 13:50 | DVHPN2 ---
Reviewed: Care Plan, H&P, Labs, Medications, Previous Orders, Radiology Changes from previous H/P or p: No Changes Eyes: No Pain, No Vision change, No Conjunctivae inflammation, No Eyelid inflammation, No Other, No Redness ENT: No Ear pain, No Ear discharge, No Nose pain, No Nose discharge, No Nose congestion, No Mouth pain, No Mouth swelling, No Throat pain, No Throat swelling, No Other Cardiovascular: Chest Pain; No Palpitations, No Orthopnea, No Paroxysmal Noc. Dyspnea, No Edema, No Lt Headedness, No Other Respiratory: No Cough, No Dry, No Shortness of breath, No SOB with excertion, No Wheezing, No Hemoptysis, No Pleuritic Pain, No Sputum, No Other Gastrointestinal: No Nausea, No Vomiting; Abdominal Pain; No Diarrhea, No Constipation, No Melena, No Hematochezia, No Other Genitourinary: No Dysuria, No Frequency, No Incontinence, No Hematuria, No Retention, No Other Musculoskeletal: other (Left toes amputation); No neck pain, No shoulder pain, No arm pain, No back pain, No hand pain, No leg pain, No foot pain Skin: No Rash, No Lesions, No Jaundice, No Bruising, No Other Objective Vitals Vital Signs Date Time Temp Pulse Resp B/P (MAP) Pulse Ox O2 Delivery O2 Flow Rate FiO2 05/03/25 13:30 67 146/96 (113) 05/03/25 11:03 18 05/03/25 09:15 86.0 86.0 05/03/25 09:00 97 05/03/25 08:00 Room Air* 0 21 Intake/Output Intake and Output 05/03/25 07:00 Intake Total 400 ml Balance 400 ml Intake Oral 250 ml IV Total 150 ml # Voids 3 Medications Current Medications Medications Dose Ordered Sig/Carey Route Start Time Stop Time Status Last Admin Dose Admin Fluoxetine HCl 40 mg DAILY PO 05/03/25 10:00 Aspirin 81 mg DAILY PO 05/03/25 10:00 05/03/25 09:38 81 MG Clopidogrel Bisulfate 75 mg DAILY PO 05/03/25 10:00 05/03/25 09:38 75 MG Metoprolol Tartrate 25 mg BID PO 05/02/25 22:00 05/03/25 06:28 25 MG Gabapentin 300 mg TID PO 05/02/25 22:00 05/03/25 06:16 300 MG Diagnostic Test (Pha) 1 strip IQ4HR 05/03/25 00:00 05/03/25 12:00 1 STRIP Insulin Human Regular IQ4HR SC 05/03/25 00:00 05/03/25 11:48 16 UNITS Dextrose 50 ml UD PRN IV 05/02/25 20:45 Sodium Chloride 1,000 ml @ 60 mls/hr [id number] IV 05/02/25 20:45 05/02/25 21:13 60 MLS/HR Acetaminophen/ Hydrocodone Bitart 1 tab Q4HP PRN PO 05/02/25 20:45 Ondansetron HCl 4 mg Q4HP PRN IV 05/02/25 20:45 Docusate Sodium 100 mg BIDPRN PRN PO 05/02/25 20:45 Acetaminophen 650 mg Q6HP PRN PO 05/02/25 20:45 Morphine Sulfate 2 mg Q4HPRN PRN IV 05/02/25 20:45 05/03/25 10:33 2 MG Nitroglycerin 0.4 mg Q5MINP PRN SL 05/02/25 22:00 Morphine Sulfate 2 mg Q30M PRN IV 05/02/25 22:00 Clonidine HCl 0.2 mg Q6HP PRN PO 05/03/25 09:30 05/03/25 09:43 0.2 MG Laboratory Results Laboratory Tests 05/03/25 06:00 Chemistry Test 05/02/25 14:52 05/03/25 06:00 Albumin 4.3 g/dL (3.2-4.8) 3.8 g/dL (3.2-4.8) Calcium Level 9.2 mg/dL (8.7-10.4) 8.6 mg/dL (8.7-10.4) L Total Protein 7.3 g/dL (5.7-8.2) 6.7 g/dL (5.7-8.2) LFT Test 05/02/25 14:52 05/03/25 06:00 Alanine Aminotransferase (ALT) 39 U/L (7-40) 33 U/L (7-40) Alkaline Phosphatase 168 U/L (46-116) H 113 U/L (46-116) Aspartate Amino Transferase (AST) 25 U/L (13-40) 23 U/L (13-40) Total Bilirubin 0.5 mg/dL (0.2-1.0) 0.7 mg/dL (0.2-1.0) Urinalysis Test 05/02/25 14:32 Urine Color Light-yellow (Yellow) Urine Clarity Clear (Clear) Urine pH 5.5 (5.0-9.0) Urine Specific [place] 1.041 (1.001-1.035) Urine Protein Negative (Negative) Urine Ketones Negative (Negative) Urine Blood Negative /uL (Negative) Urine Nitrite Negative (Negative) Urine Bilirubin Negative (Negative) Urine Urobilinogen Normal mg/dL (Negative) Urine Leukocyte Esterase Negative /uL (Negative) Urine RBC 2 /hpf (0 - 3) Urine Microscopic WBC 11 /HPF (0-3) H Urine Squamous Epithelial Cells None seen /hpf (<5) Urine Bacteria None seen /hpf (None Seen) Urine Glucose 4+ mg/dL (Normal) H Labs and/or images reviewed: Labs reviewed by me, Image(s) reviewed by me Assessment/Plan Assessment/Plan Chest pain rule out ACS troponin normal consult for Dr. 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 Hypertension Chronic opiate use Chronic kidney disease History of CVA Hypercholesterolemia History of DC History of PE History of TIA Chronic right foot infection with the amputation of the right 2,3,4,5 digits secondary to shark bite 2 yrs ago, patient says he usually follows up with his mailing specialist does not want any mailing specialist consult here Check Urine drug screen Time spent 65 minutes Advanced care planning time 20 minutes Patient is full code Plan discussed with: Patient My Orders Orders - AURE ZAMORANO MD Procedure Category Date Status Time Clonidine Hcl Tablet PHA 05/03/25 In Process (Catapres Tablet) 09:30 Date of Service: May 03, 2025 Billing Provider: AURE ZAMORANO MD Common Visit Codes: [id number] CARE 30-74 MIN AURE ZAMORANO MD May 03, 2025 13:50
[2025-05-03 14:44] LABS: Triglycerides 118.0 mg/dL (< 150)
[2025-05-03 14:45] LABS: Magnesium 1.9 mg/dL (1.6-2.6)
[2025-05-03 14:46] LABS: Cholesterol 148.0 mg/dL (< 200); HDL Cholesterol 36.0 mg/dL (40-59)
--- NOTE | 2025-05-03 15:23 | DVHINCON2 ---
Date Seen: May 03, 2025 Referring Physician MD Patrick Reason for Consultation Chest pain History of Present Illness This is a 50-year-old male patient who presents to the emergency room with chief complaint of chest pain. The patient reports that the pain began at approximately 12:00 p.m. yesterday while he was lying in bed. He describes the pain as unprovoked, intermittent, squeezing in nature, substernal with radiation down his left arm. He denies any associated symptoms. 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 Serial troponin levels have been negative. 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 Of note, the patient underwent the most recent coronary angiogram with left heart catheterization on 08/06/2024 which revealed a completely occluded left anterior descending artery of the ostium with a widely patent DIOR to LAD, a widely patent right coronary artery with a mid and distal stenosis moderate in severity. At that time medical therapy was advised. When asked about his medication list, the patient states that he only takes his Brilinta and aspirin. He claims that he is not on any antihypertensive medications or lipid-lowering agents. External medication reconciliation list reviewed and patient has many prescribed medications including antihypertensives, and lipid-lowering agent for which patient does not take at home. Past Medical History Past medical history reviewed. No other significant than mentioned above. Past Surgical History Quadruple vessel CABG in 2019 Multiple PTCAs Right shoulder surgery x4 Inguinal hernia repair Family History: Cardiovascular disease G8 FATHER Diabetes mellitus G8 MOTHER FH: cancer G8 FATHER, Onset:Unknown G8 FATHER FH: cancer G8 FATHER, Onset:Unknown G8 FATHER Hypertension G8 FATHER Family History Family history reviewed. Social History Patient has a 15 pack-year history, currently smokes approximately one cigarette per day now Denies illicit drug use Denies alcohol use Allergies: Coded Allergies: Ketorolac Tromethamine (Verified Allergy, Severe, 01/04/22) Pineapple (Verified Allergy, Severe, SWELLING, 12/26/21) Uncoded Allergies: BROCCOLI (Allergy, Severe, SWELLING, 12/26/21) COCONUT (Allergy, Severe, SWELLING, 12/26/21) Home Meds Active Scripts Carvedilol (COREG) 12.5 Mg Tab, 12.5 MG PO Q12HR for 30 Days, #60 TAB 1 Refill Prov:FELECIA SANTACRUZ RESIDENT 08/07/24 Isosorbide Mononitrate (Isosorbide Mononitrate ER) 60 Mg Tab, 30 MG PO DAILY for 30 Days, #15 TAB 1 Refill Prov:FELECIA SANTACRUZ RESIDENT 08/07/24 Reported Medications Metoprolol Tartrate (Metoprolol Tartrate) 25 Mg Tab, 25 MG PO, TAB 11/23/24 Ticagrelor Base (BRILINTA) 90 Mg Tab, 1 TAB PO DAILY for 30 Days, #30 08/06/24 Gabapentin (Gabapentin) 400 Mg Cap, 4 CAP PO QPM for 90 Days, #810 08/06/24 Gabapentin (Gabapentin) 400 Mg Cap, 3 CAP PO @NOON for 90 Days, #810 08/06/24 Divalproex Sodium (Divalproex Sodium Dr) 500 Mg Tab, 1-2 TAB PO HS for 30 Days, #60 08/06/24 Lurasidone Hydrochloride (Lurasidone Hydrochloride) 40 Mg Tab, 1 TAB PO BID for 30 Days, #60 24 Fluoxetine Hcl (Fluoxetine Hcl) 40 Mg Cap, 1 CAP PO DAILY for 30 Days, #30 24 Dextromethorphan Hbr-Quinidine (NUEDEXTA) 1 Cap Cap, 1 CAP PO BID for 30 Days, #60 24 Ondansetron HCl (Ondansetron Hydrochloride) 4 Mg Tab, 1 TAB PO TID PRN for NAUSEA / VOMITING for 90 Days, #270 08/06/24 Insulin Lispro (Insulin Lispro Kwikpen) 100 Unit/Ml Inj, 30-50 UNIT SC TIDAC for 90 Days, #45 08/06/24 Hydrocodone-Acetaminophen (Hydrocodone Bitartrate/AC 10-325 mg) 1 Tab Tab, 1 TAB PO Q4-6HR PRN for PAIN for 23 Days, #138 08/06/24 Aspirin (Aspirin Low Dose) 81 Mg Chw, 1 TAB PO DAILY for 30 Days, #30 08/06/24 Zolpidem Tartrate (Zolpidem Tartrate) 10 Mg Tab, 1 TAB PO DAILY for 30 Days, #30 08/06/24 Insulin Glargine (Lantus Solostar) 100 Unit/Ml Inj, 30 UNIT SC TID for 100 Days, #30 08/06/24 Gabapentin (Gabapentin) 400 Mg Cap, 2 CAP PO QAM for 90 Days, #810 08/06/24 Home Meds Home medications reviewed. Current Medications Current Medications Medications (Trade) Dose Ordered Sig/Carey Route PRN Reason Start Time Stop Time Status Last Admin Fluoxetine HCl (PROzac CAPSULE) 40 mg DAILY PO 05/03/25 10:00 Aspirin 81 mg DAILY PO 05/03/25 10:00 05/03/25 09:38 Clopidogrel Bisulfate (Plavix) 75 mg DAILY PO 05/03/25 10:00 05/03/25 09:38 Metoprolol Tartrate (Lopressor Tablet) 25 mg BID PO 05/02/25 22:00 05/03/25 06:28 Gabapentin (Neurontin Capsule) 300 mg TID PO 05/02/25 22:00 05/03/25 14:36 Diagnostic Test (Pha) (Accu-Chek Comfort Curve T) 1 strip IQ4HR 05/03/25 00:00 05/03/25 12:00 Insulin Human Regular (InsuLIN R) IQ4HR SC 05/03/25 00:00 05/03/25 11:48 Dextrose 50 ml UD PRN IV Blood Sugar LESS THAN 60 05/02/25 20:45 Sodium Chloride 1,000 ml @ 60 mls/hr [id number] IV 05/02/25 20:45 05/02/25 21:13 Acetaminophen/ Hydrocodone Bitart ([place] 5/325MG Tab) 1 tab Q4HP PRN PO MODERATE PAIN (4-6 PAIN SCALE) 05/02/25 20:45 Ondansetron HCl (Zofran) 4 mg Q4HP PRN IV NAUSEA / VOMITING 05/02/25 20:45 Docusate Sodium (Colace Capsule) 100 mg BIDPRN PRN PO FOR CONSTIPATION 05/02/25 20:45 Acetaminophen (Tylenol Tablet) 650 mg Q6HP PRN PO PAIN SCALE 1-3 OR TEMP>100.4 05/02/25 20:45 Morphine Sulfate 2 mg Q4HPRN PRN IV SEVERE PAIN (7-10 PAIN SCALE) 05/02/25 20:45 05/03/25 14:38 Nitroglycerin (Ntrostat Sublingual) 0.4 mg Q5MINP PRN SL FOR CHEST PAIN 05/02/25 22:00 Morphine Sulfate 2 mg Q30M PRN IV FOR CHEST PAIN 05/02/25 22:00 Clonidine HCl (Catapres Tablet) 0.2 mg Q6HP PRN PO SBP>160 05/03/25 09:30 05/03/25 09:43 Review of Systems Constitutional: No symptom reported Ears, Nose, & Throat: No symptom reported Eyes: No symptom reported Neurological: No symptoms reported Pulmonary/Respiratory: No symptoms reported Cardiovascular: Chest pain Gastrointestinal: No symptom reported Genitourinary: No symptom reported Musculoskeletal: No symptom reported Skin: No symptom reported Psychiatric: No symptom reported Endocrine: No symptom reported Hematologic/Lymphatic: No symptom reported Vital Signs Vital Signs Date Time Temp Pulse Resp B/P (MAP) Pulse Ox O2 Delivery O2 Flow Rate FiO2 05/03/25 14:38 63 18 179/110 05/03/25 13:00 98.1 98 98.1 05/03/25 08:00 Room Air* 0 21 Physical Exam General Appearance: Cooperative. Well-developed. Well-nourished. No acute distress. Pulmonary/Respiratory: Clear, bilateral breaths sounds. Cardiovascular/Chest: Regular rate and rhythm. Peripheral Pulses: 2+ Radial (R). 2+ Radial (L). 2+ Pedal (L). Right foot wrapped with dressing (unable to assess pedal pulse) Abdominal Exam: Normal bowel sounds. Ankle Exam: Negative ankle edema Lower extremities: Negative lower extremity edema Neuro/Mental Status: A/OX4, coherent. Thoughts/Psych: Normal thought pattern. Appropriate mood and affect. Good judgment and insight. Appearance: No acute distress. Skin Exam: Normal inspection. Normal color. Warm and dry. Missing 4 digits to right foot Labs/Diagnostic Data Labs Test 05/03/25 11:43 05/03/25 06:00 05/03/25 00:18 05/02/25 14:32 Range/Units POC Glucose 310 H 70-106 mg/dl White Blood Count 6.2 4.4-10.8 10^3/uL Red Blood Count 4.97 4.5-5.90 10^6/uL Hemoglobin 14.4 13.5-17.5 g/dL Hematocrit 41.4 41.0-53.0 % Mean Corpuscular Volume 83.4 80.0-100.0 fL Mean Corpuscular Hemoglobin 28.9 28.0-32.0 pg Mean Corpuscular Hemoglobin Concent 34.7 32.0-36.0 g/dL Red Cell Distribution Width 14.5 H 11.8-14.3 % Platelet Count 122 L 140-450 10^3/uL Mean Platelet Volume 9.1 6.9-10.8 fL Neutrophils (%) (Auto) 58.8 37.0-80.0 % Lymphocytes (%) (Auto) 31.4 10.0-50.0 % Monocytes (%) (Auto) 8.2 0.0-12.0 % Eosinophils (%) (Auto) 1.3 0.0-7.0 % Basophils (%) (Auto) 0.3 0.0-2.0 % Neutrophils # (Auto) 3.7 1.6-8.6 10 ^3/uL Lymphocytes # (Auto) 2.0 0.4-5.4 10 ^3/uL Monocytes # (Auto) 0.5 0-1.3 10 ^3/uL Eosinophils # (Auto) 0.1 0-0.8 10 ^3/uL Basophils # (Auto) 0 0-0.2 10 ^3/uL Nucleated Red Blood Cells 0.0 % Sodium Level 139 136-145 mmol/L Potassium Level 3.6 3.5-5.1 mmol/L Chloride Level 102 98-107 mmol/L Carbon Dioxide Level 26 20-31 mmol/L Anion Gap 11 5-15 Blood Urea Nitrogen 5 L 9-23 mg/dL Creatinine 0.67 L 0.700-1.30 mg/dL Glomerular Filtration Rate Calc 114 >90 mL/min BUN/Creatinine Ratio 7.5 L 10.0-20.0 Serum Glucose 227 #H 74-106 mg/dL Hemoglobin A1c 11.9 H <5.7 % A1C Calcium Level 8.6 L 8.7-10.4 mg/dL Total Bilirubin 0.7 0.2-1.0 mg/dL Aspartate Amino Transferase (AST) 23 13-40 U/L Alanine Aminotransferase (ALT) 33 7-40 U/L Alkaline Phosphatase 113 46-116 U/L Total Protein 6.7 5.7-8.2 g/dL Albumin 3.8 3.2-4.8 g/dL Troponin I High Sensitivity 3 L </=54 ng/L Urine Color Light-yellow Yellow Urine Clarity Clear Clear Urine pH 5.5 5.0-9.0 Urine Specific [place] 1.041 H 1.001-1.035 Urine Protein Negative Negative Urine Ketones Negative Negative Urine Blood Negative Negative /uL Urine Nitrite Negative Negative Urine Bilirubin Negative Negative Urine Urobilinogen Normal Negative mg/dL Urine Leukocyte Esterase Negative Negative /uL Urine RBC 2 0 - 3 /hpf Urine Microscopic WBC 11 H 0-3 /HPF Urine Squamous Epithelial Cells None seen <5 /hpf Urine Bacteria None seen None Seen /hpf Urine Glucose 4+ H Normal mg/dL Assessment Chest pain, rule out progressive coronary artery disease Severe coronary artery disease status post quadruple vessel CABG Multiple PTCAs x 3 TRACEY (on Brilinta and aspirin) Hypertensive urgency History myocardial infarction Hyperlipidemia History of pulmonary embolism Type 2 diabetes mellitus, uncontrolled (Hgb A1c 11.9%) History of CVA and TIAs Tobacco use Obese Medical noncompliance Plan/Recommendation We will continue with the following plan/recommendations (Dr. Huff): * Transthoracic echocardiogram to evaluate cardiac function * Previous transthoracic echocardiogram from 08/06/2024 reveals EF of 50% * Chest pain protocol * HEART score: 4 points (moderate score) * Aggressive BP control * Reinitiate antianginals * Continue dual antiplatelet therapy * Lipid-lowering agent * Close Cardiac surveillance; notify cardiology team immediately for any ECG changes * Nuclear stress test Given patient's extensive cardiac history, we will order nuclear stress test. Thank you for allowing us to care for this patient. Please call with any questions or concerns. Critical care time spent: 44 minutes This medical document was created using an electronic medical record system with voice recognition software and computerized dictation system. Although this document has been carefully reviewed, there might still be some phonetic and typographical errors. Occasional wrong-word or ``sound-alike substitutions may have occurred due to the inherent limitations of voice recognition software. These areas are purely typographical due to imperfections of the software programs and do not reflect any compromise in the patient's medical care. Please read the chart carefully and recognize, using context, where these substitutions have occurred. Plan discussed with: Patient NYHA Physical activity limitations: NA Date of Service: May 03, 2025 Billing Provider: ROHIT GUTIERREZ Cardiology Common Codes: [id number] INP/OBS CARE (High) Cardiology Consultation Codes: [id number] CONSULT <45MIN ROHIT GUTIERREZ May 03, 2025 15:23
[2025-05-03] MEDS: HYDROcodone-ACET 5/325MG TAB PO PRN (16:50)
[2025-05-03 17:37] LABS: Amphetamine Screen, Urine Neg (NEGATIVE); Barbiturate Scree,Urine Neg (NEGATIVE); Benzodiazephine Screen, Urine Neg (NEGATIVE); Cannabinoid Screen, Urine Neg (NEGATIVE); Cocaine Screen, Urine Neg (NEGATIVE); Opiate Scree,Urine Pos (NEGATIVE); Phencyclidine Screen, Urine Neg (NEGATIVE)
[2025-05-03] MEDS: ATORVASTATIN 20 MG TAB PO SCH (21:44)
[2025-05-03] MEDS: RANOLAZINE ER 500 MG TAB PO SCH (22:00)
[2025-05-04] VITALS (8 sets, daily range): BP systolic 127–154; BP diastolic 85–90; PULSE 62–82; RESP 18–20; TEMP 97.4–98.6; O2SAT 93–99
--- NOTE | 2025-05-04 09:52 | DVHSR ---
APPROVED REPORT EXAM: Two-dimensional and M-mode echocardiogram with Doppler and color Doppler. Blood Pressure: 146/96 mmHg INDICATION Evaluate cardiac function RISK FACTORS Obesity: Height: 5' 9", Weight: 225 DIMENSIONS LVDd5.6 (3.8-5.7cm)LA (2D)4.2 (1.9-4.0cm)Aortic Root3.7 (2.0-3.7cm) LVDs4.2 (2.5-4.0cm)LA (MM) (1.9-4.0cm)Aortic Cusp Exc1.6 (1.5-2.0cm) EF (%) 50.0 (55-70%)Rt. Atrium4.9 (1.9-4.0cm)Asc. Aorta cm IVSd1.2 (0.7-1.1cm)RV (D) (1.8-2.4cm) PWd1.2 (0.7-1.1cm) Mitral Valve MitralMitral Stenosis E wave1.00m/sMV Mean GR.mmHg A wave0.80m/sMV Peak GR.mmHg E/A ratio1.32D MVAcm2 Aortic Valve Aortic ValveAortic Stenosis V11.10m/Donna Mean GR.4mmHg V21.40m/Donna Peak GR.8mmHg LVOT Diameter2.3 (1.8-2.4cm)Doppler AVA3.26cm2 Pulmonic Valve V20.60m/s Conclusion lvef 50% borderline lvh normal rv function normal atria no severe valve abnormalities noted limited study images
[2025-05-04] MEDS: REGADENOSON 0.4 MG/5 ML SYRG IV ONE ×2 (09:54→10:03)
--- NOTE | 2025-05-04 12:41 | ECG ---
[facility] Test Date: 2025-05-02 Test Time: 14:20:02 Pat Name: RUBIN BARNES Department: Room: 0297T A Gender: M Flat Drier: PETR : 1975 Requested By: ALEXANDER DOMÍNGUEZ Order Number: [id number] Reading MD: Darian Huff Measurements Intervals [place] Rate: 96 P: 41 IN: 139 QRS: -10 QRSD: 115 T: 196 QT: 320 QTc: 405 Interpretive Statements Sinus rhythm Nonspecific intraventricular conduction delay Abnormal T, consider ischemia, diffuse leads Electronically Signed On 05-06-2025 9:31:30 PDT by Darian Huff Please click the below link to view image of tracing.
--- NOTE | 2025-05-04 14:01 | DVHSR ---
APPROVED REPORT Exam: Nuclear Stress Test BMI: 0 Stress Test Details HR Max Heart Rate (APMHR): 171.852036 bpm Target HR (85% APMHR): 145.346864 bpm BP ECG Stress ECG Conclusion lvef 51% lateral wall ischemia is noted NM EXAM: Myocardial Perfusion REST/STRESS Imaging Protocol: Rest Tc-99m/Stress Tc-99m 1 day Resting Data Rest SPECT myocardial perfusion imaging was performed in supine position 60 minutes following the int ravenous injection of 10.4 mCi of Tc-99m Sestamibi. Time of rest injection: 07:55 Date: 05/04/2025 Time of rest imagin:55 Date: 05/04/2025 Administration Route: IV Administration Site: Right Arm Pharmacologic Stress Pharmacologic stress test was performed by injecting Regadenoson 0.4 mg IV push followed by the intra venous injection of 32.5 mCi of Tc-99m Sestamibi. Time of stress injection: 10:15 Date: 05/04/2025 Time of stress imagin:15 Date: 05/04/2025 Administration Route: IV Administration Site: Right Arm Gated Stress SPECT was performed 60 minutes after stress injection. The images were gated to evaluate regional wall motion and calculate left ventricular ejection fracti on. Stress only was performed in the Supine position. Nuclear Conclusion Nuclear Findings: positive for ischemia lvef 51% lateral wall ischemia is noted
[2025-05-04] MEDS: TICAGRELOR 90 MG TAB PO SCH (14:31)
--- NOTE | 2025-05-04 14:42 | DVHPN2 ---
Reviewed: Care Plan, H&P, Labs, Medications, Previous Orders, Radiology Changes from previous H/P or p: No Changes Eyes: No Pain, No Vision change, No Conjunctivae inflammation, No Eyelid inflammation, No Other, No Redness ENT: No Ear pain, No Ear discharge, No Nose pain, No Nose discharge, No Nose congestion, No Mouth pain, No Mouth swelling, No Throat pain, No Throat swelling, No Other Cardiovascular: Chest Pain; No Palpitations, No Orthopnea, No Paroxysmal Noc. Dyspnea, No Edema, No Lt Headedness, No Other Respiratory: No Cough, No Dry, No Shortness of breath, No SOB with excertion, No Wheezing, No Hemoptysis, No Pleuritic Pain, No Sputum, No Other Gastrointestinal: No Nausea, No Vomiting; Abdominal Pain; No Diarrhea, No Constipation, No Melena, No Hematochezia, No Other Genitourinary: No Dysuria, No Frequency, No Incontinence, No Hematuria, No Retention, No Other Musculoskeletal: other (Left toes amputation); No neck pain, No shoulder pain, No arm pain, No back pain, No hand pain, No leg pain, No foot pain Skin: No Rash, No Lesions, No Jaundice, No Bruising, No Other Objective Vitals Vital Signs Date Time Temp Pulse Resp B/P (MAP) Pulse Ox O2 Delivery O2 Flow Rate FiO2 05/04/25 13:30 78 16 116/77 05/04/25 13:00 98.4 95 98.4 05/04/25 08:00 Room Air* 0 21 Intake/Output Intake and Output 05/04/25 07:00 Intake Total 900 ml Output Total 1200 ml Balance -300 ml Intake Oral 900 ml Output Urine Total 1200 ml # Voids 5 # Bowel Movements 1 Medications Current Medications Medications Dose Ordered Sig/Carey Route Start Time Stop Time Status Last Admin Dose Admin Fluoxetine HCl 40 mg DAILY PO 05/03/25 10:00 Aspirin 81 mg DAILY PO 05/03/25 10:00 05/04/25 13:21 81 MG Metoprolol Tartrate 25 mg BID PO 05/02/25 22:00 05/03/25 21:47 25 MG Gabapentin 300 mg TID PO 05/02/25 22:00 05/04/25 13:20 300 MG Diagnostic Test (Pha) 1 strip IQ4HR 05/03/25 00:00 05/04/25 11:17 1 STRIP Insulin Human Regular IQ4HR SC 05/03/25 00:00 05/04/25 11:17 4 UNITS Dextrose 50 ml UD PRN IV 05/02/25 20:45 Sodium Chloride 1,000 ml @ 60 mls/hr [id number] IV 05/02/25 20:45 05/04/25 13:38 60 MLS/HR Acetaminophen/ Hydrocodone Bitart 1 tab Q4HP PRN PO 05/02/25 20:45 05/03/25 16:50 1 TAB Ondansetron HCl 4 mg Q4HP PRN IV 05/02/25 20:45 Docusate Sodium 100 mg BIDPRN PRN PO 05/02/25 20:45 Acetaminophen 650 mg Q6HP PRN PO 05/02/25 20:45 Morphine Sulfate 2 mg Q4HPRN PRN IV 05/02/25 20:45 05/04/25 13:30 2 MG Nitroglycerin 0.4 mg Q5MINP PRN SL 05/02/25 22:00 Morphine Sulfate 2 mg Q30M PRN IV 05/02/25 22:00 Hydralazine HCl 10 mg Q6HP PRN IV 05/03/25 15:00 Ticagrelor 90 mg BID PO 05/04/25 10:00 05/04/25 14:31 90 MG Atorvastatin Calcium 40 mg HS PO 05/03/25 22:00 05/03/25 21:44 40 MG Ranolazine 500 mg BID PO 05/03/25 22:00 Nifedipine 30 mg DAILY PO 05/04/25 10:00 Laboratory Results Laboratory Tests 05/03/25 06:00 Urinalysis Test 05/02/25 14:32 Urine Color Light-yellow (Yellow) Urine Clarity Clear (Clear) Urine pH 5.5 (5.0-9.0) Urine Specific [place] 1.041 (1.001-1.035) Urine Protein Negative (Negative) Urine Ketones Negative (Negative) Urine Blood Negative /uL (Negative) Urine Nitrite Negative (Negative) Urine Bilirubin Negative (Negative) Urine Urobilinogen Normal mg/dL (Negative) Urine Leukocyte Esterase Negative /uL (Negative) Urine RBC 2 /hpf (0 - 3) Urine Microscopic WBC 11 /HPF (0-3) H Urine Squamous Epithelial Cells None seen /hpf (<5) Urine Bacteria None seen /hpf (None Seen) Urine Glucose 4+ mg/dL (Normal) H Labs and/or images reviewed: Labs reviewed by me, Image(s) reviewed by me Assessment/Plan Assessment/Plan Chest pain, rule out progressive coronary artery disease , cardiology consult appreciated, patient getting a stress test Severe coronary artery disease status post quadruple vessel CABG Multiple PTCAs x 3 TRACEY (on Brilinta and aspirin) Hypertensive urgency History myocardial infarction Hyperlipidemia History of pulmonary embolism Type 2 diabetes mellitus, uncontrolled (Hgb A1c 11.9%) History of CVA and TIAs Tobacco use Obese Medical noncompliance Plan discussed with: Patient My Orders Orders - AURE ZAMORANO MD Procedure Category Date Status Time Consistent DIET 05/04/25 [facility]Diabetes Lunch Date of Service: May 04, 2025 Billing Provider: AURE ZAMORANO MD Common Visit Codes: [id number] INP/OBS CARE(HIGH) AURE ZAMORANO MD May 04, 2025 14:42
--- NOTE | 2025-05-04 17:08 | DVHPN2 ---
Consult Progress Note Date Seen: May 04, 2025 Subjective Review of Systems: CVS:Abnormal, RESPIRATORY:Normal, NEURO:Normal Other Systems: C/o chest pain, substernal, non-radiating Objective vital signs Vital Sign Date Time Temp Pulse Resp B/P (MAP) Pulse Ox O2 Delivery O2 Flow Rate FiO2 05/04/25 16:39 98.4 78 18 154/90 (111) 96 98.4 05/04/25 08:00 Room Air* 0 21 Total Intake and Output 05/03/25 05/03/25 05/04/25 15:00 23:00 07:00 Intake Total 900 ml Output Total 1200 ml Balance -300 ml medications Current Medications Medications Dose Ordered Sig/Carey Route Start Time Stop Time Status Last Admin Dose Admin Fluoxetine HCl 40 mg DAILY PO 05/03/25 10:00 Aspirin 81 mg DAILY PO 05/03/25 10:00 05/04/25 13:21 81 MG Metoprolol Tartrate 25 mg BID PO 05/02/25 22:00 05/03/25 21:47 25 MG Gabapentin 300 mg TID PO 05/02/25 22:00 05/04/25 13:20 300 MG Diagnostic Test (Pha) 1 strip IQ4HR 05/03/25 00:00 05/04/25 16:00 1 STRIP Insulin Human Regular IQ4HR SC 05/03/25 00:00 05/04/25 16:54 16 UNITS Dextrose 50 ml UD PRN IV 05/02/25 20:45 Sodium Chloride 1,000 ml @ 60 mls/hr [id number] IV 05/02/25 20:45 05/04/25 13:38 60 MLS/HR Acetaminophen/ Hydrocodone Bitart 1 tab Q4HP PRN PO 05/02/25 20:45 05/03/25 16:50 1 TAB Ondansetron HCl 4 mg Q4HP PRN IV 05/02/25 20:45 Docusate Sodium 100 mg BIDPRN PRN PO 05/02/25 20:45 Acetaminophen 650 mg Q6HP PRN PO 05/02/25 20:45 Morphine Sulfate 2 mg Q4HPRN PRN IV 05/02/25 20:45 05/04/25 13:30 2 MG Nitroglycerin 0.4 mg Q5MINP PRN SL 05/02/25 22:00 Morphine Sulfate 2 mg Q30M PRN IV 05/02/25 22:00 Hydralazine HCl 10 mg Q6HP PRN IV 05/03/25 15:00 Ticagrelor 90 mg BID PO 05/04/25 10:00 05/04/25 14:31 90 MG Atorvastatin Calcium 40 mg HS PO 05/03/25 22:00 05/03/25 21:44 40 MG Ranolazine 500 mg BID PO 05/03/25 22:00 Nifedipine 30 mg DAILY PO 05/04/25 10:00 Examination: LUNGS:Normal, CVS:Normal (NSR), NEURO:Normal laboratory and microbiology Laboratory Tests 05/03/25 06:00 Test 05/03/25 06:00 Range/Units Serum Glucose 227 #H 74-106 mg/dL Problem List/Assessment/Plan Problem List/Assessment/Plan Chest pain, rule out progressive coronary artery disease Severe coronary artery disease status post quadruple vessel CABG Multiple PTCAs x 3 TRACEY (on Brilinta and aspirin) Type 2 diabetes mellitus, uncontrolled (Hgb A1c 11.9%) Hypertensive urgency Hyperlipidemia History of pulmonary embolism History of CVA/TIAs Chronic pain syndrome with possible narcotic dependance Medical noncompliance Tobacco use Obesity Plan/Recommendation (Dr. Huff) * Transthoracic echocardiogram revealed LVEF 50% with normal RV function * Cardiolite stress test deemed to be positive with lateral wall ischemia * Dual-antiplatelet therapy and lipid-lowering agent * Close Cardiac surveillance; notify cardiology team immediately for any ECG changes * Continue chest pain protocol Scheduled for cardiac catheterization and coronary angiogram with Dr. Huff for Sunday05/06/25. All risks and benefits of the procedure were discussed in full detail and agrees to proceed. All questions answered. Thank you for allowing us to care for this patient. Please call with any questions or concerns. Critical care time spent: 44 minutes This medical document was created using an electronic medical record system with voice recognition software and computerized dictation system. Although this document has been carefully reviewed, there might still be some phonetic and typographical errors. Occasional wrong-word or ``sound-alike substitutions may have occurred due to the inherent limitations of voice recognition software. These areas are purely typographical due to imperfections of the software programs and do not reflect any compromise in the patient's medical care. Please read the chart carefully and recognize, using context, where these substitutions have occurred. Plan discussed with: Patient, Other Dietary Evaluation Review Recommendations by RD: Dietary education by RD Comments: 1) Initiate MVI @ 1 tb qd 2) Initiate vitamin C @ 500 mg bid and zinc sulfate @ 220 mg qd for 7 days 3) Add cardiac restriction to 60g CCHO diet 4) Refer to outpatient RD/CDCES for diabetes education 5) Follow-up with cardiology and podiatry 6) Continue to monitor I&O, labs, and skin integrity Expected Outcomes/Goals: 1) appetite and labs to improve 2) wound to improve 3) gradual wt loss 4) f/u in 3-5 days Date of Service: May 04, 2025 Billing Provider: ZACHERY GRIMALDO Cardiology Common Codes: [id number] HOSP CARE(High ZACHERY GRIMALDO May 04, 2025 17:08
[2025-05-04] MEDS: MORPHINE SULFATE 4 MG/ML SYR/VIAL ONE (17:36)
[2025-05-05] VITALS (8 sets, daily range): BP systolic 129–168; BP diastolic 81–98; PULSE 71–88; RESP 16–22; TEMP 97.5–98.3; O2SAT 93–99
[2025-05-05] MEDS: hydrALAZINE HCL 20 MG/ML VL IV PRN (05:11)
[2025-05-05 06:39] LABS: Hematocrit 45.1 % (41.0-53.0); Hemoglobin 15.5 g/dL (13.5-17.5); Mean Corpuscular Hemoglobin 28.8 pg (28.0-32.0); Mean Corpuscular Volume 84.1 fL (80.0-100.0); Nucleated Red Blood Cells % 0.3 %
[2025-05-05 06:57] LABS: Alanine Aminotransferase 32 U/L (7-40); Albumin 4.2 g/dL (3.2-4.8); Calcium 9.1 mg/dL (8.7-10.4); Carbon Dioxide 23 mmol/L (20-31); Chloride 101 mmol/L (98-107)
[2025-05-05 06:58] LABS: Anion Gap 13 (5-15); BUN/Creatinine Ratio 11.9 (10.0-20.0); Bilirubin, Total 0.9 mg/dL (0.2-1.0); Magnesium 2.0 mg/dL (1.6-2.6); Potassium 3.6 mmol/L (3.5-5.1); Sodium 137 mmol/L (136-145); Total Protein 7.5 g/dL (5.7-8.2)
[2025-05-05 07:02] LABS: Alkaline Phosphatase 126 U/L (46-116); Blood Urea Nitrogen 8 mg/dL (9-23); Glucose 262 mg/dL (74-106)
--- NOTE | 2025-05-05 11:28 | DVHPN2 ---
Reviewed: Care Plan, H&P, Labs, Medications, Previous Orders, Radiology Changes from previous H/P or p: No Changes Eyes: No Pain, No Vision change, No Conjunctivae inflammation, No Eyelid inflammation, No Other, No Redness ENT: No Ear pain, No Ear discharge, No Nose pain, No Nose discharge, No Nose congestion, No Mouth pain, No Mouth swelling, No Throat pain, No Throat swelling, No Other Cardiovascular: Chest Pain; No Palpitations, No Orthopnea, No Paroxysmal Noc. Dyspnea, No Edema, No Lt Headedness, No Other Respiratory: No Cough, No Dry, No Shortness of breath, No SOB with excertion, No Wheezing, No Hemoptysis, No Pleuritic Pain, No Sputum, No Other Gastrointestinal: No Nausea, No Vomiting; Abdominal Pain; No Diarrhea, No Constipation, No Melena, No Hematochezia, No Other Genitourinary: No Dysuria, No Frequency, No Incontinence, No Hematuria, No Retention, No Other Musculoskeletal: other (Left toes amputation); No neck pain, No shoulder pain, No arm pain, No back pain, No hand pain, No leg pain, No foot pain Skin: No Rash, No Lesions, No Jaundice, No Bruising, No Other Objective Vitals Vital Signs Date Time Temp Pulse Resp B/P (MAP) Pulse Ox O2 Delivery O2 Flow Rate FiO2 05/05/25 10:28 88 19 132/98 05/05/25 09:30 97.6 99 97.6 05/05/25 07:55 Room Air* 0 21 Intake/Output Intake and Output 05/05/25 07:00 Intake Total 3173 ml Balance 3173 ml Intake Oral 3173 ml # Voids 10 # Bowel Movements 2 Medications Current Medications Medications Dose Ordered Sig/Carey Route Start Time Stop Time Status Last Admin Dose Admin Fluoxetine HCl 40 mg DAILY PO 05/03/25 10:00 Aspirin 81 mg DAILY PO 05/03/25 10:00 05/05/25 08:46 81 MG Metoprolol Tartrate 25 mg BID PO 05/02/25 22:00 05/03/25 21:47 25 MG Gabapentin 300 mg TID PO 05/02/25 22:00 05/05/25 05:09 300 MG Diagnostic Test (Pha) 1 strip IQ4HR 05/03/25 00:00 05/05/25 08:37 1 STRIP Insulin Human Regular IQ4HR SC 05/03/25 00:00 05/05/25 08:50 16 UNITS Dextrose 50 ml UD PRN IV 05/02/25 20:45 Sodium Chloride 1,000 ml @ 60 mls/hr [id number] IV 05/02/25 20:45 05/04/25 13:38 60 MLS/HR Acetaminophen/ Hydrocodone Bitart 1 tab Q4HP PRN PO 05/02/25 20:45 05/05/25 08:46 1 TAB Ondansetron HCl 4 mg Q4HP PRN IV 05/02/25 20:45 Docusate Sodium 100 mg BIDPRN PRN PO 05/02/25 20:45 Acetaminophen 650 mg Q6HP PRN PO 05/02/25 20:45 Morphine Sulfate 2 mg Q4HPRN PRN IV 05/02/25 20:45 05/05/25 10:28 2 MG Nitroglycerin 0.4 mg Q5MINP PRN SL 05/02/25 22:00 Morphine Sulfate 2 mg Q30M PRN IV 05/02/25 22:00 Hydralazine HCl 10 mg Q6HP PRN IV 05/03/25 15:00 05/05/25 05:11 10 MG Ticagrelor 90 mg BID PO 05/04/25 10:00 05/05/25 08:46 90 MG Atorvastatin Calcium 40 mg HS PO 05/03/25 22:00 05/03/25 21:44 40 MG Ranolazine 500 mg BID PO 05/03/25 22:00 Nifedipine 30 mg DAILY PO 05/04/25 10:00 Laboratory Results Laboratory Tests 05/05/25 05:30 Chemistry Test 05/05/25 05:30 Albumin 4.2 g/dL (3.2-4.8) Calcium Level 9.1 mg/dL (8.7-10.4) Magnesium Level 2.0 mg/dL (1.6-2.6) Total Protein 7.5 g/dL (5.7-8.2) Cardiac Markers Test 05/05/25 05:30 B-Type Natriuretic Peptide 12.47 pg/mL (0-100) LFT Test 05/05/25 05:30 Alanine Aminotransferase (ALT) 32 U/L (7-40) Alkaline Phosphatase 126 U/L (46-116) H Aspartate Amino Transferase (AST) 21 U/L (13-40) Total Bilirubin 0.9 mg/dL (0.2-1.0) Urinalysis Test 05/02/25 14:32 Urine Color Light-yellow (Yellow) Urine Clarity Clear (Clear) Urine pH 5.5 (5.0-9.0) Urine Specific [place] 1.041 (1.001-1.035) Urine Protein Negative (Negative) Urine Ketones Negative (Negative) Urine Blood Negative /uL (Negative) Urine Nitrite Negative (Negative) Urine Bilirubin Negative (Negative) Urine Urobilinogen Normal mg/dL (Negative) Urine Leukocyte Esterase Negative /uL (Negative) Urine RBC 2 /hpf (0 - 3) Urine Microscopic WBC 11 /HPF (0-3) H Urine Squamous Epithelial Cells None seen /hpf (<5) Urine Bacteria None seen /hpf (None Seen) Urine Glucose 4+ mg/dL (Normal) H Labs and/or images reviewed: Labs reviewed by me, Image(s) reviewed by me Assessment/Plan Assessment/Plan Chest pain, rule out progressive coronary artery disease , cardiology consult appreciated, stress test shows lateral ischemia, scheduled for left heart catheterization by Dr. Huff on 05/06/2025 Severe coronary artery disease status post quadruple vessel CABG Multiple PTCAs x 3 TRACEY (on Brilinta and aspirin) Hypertensive urgency History myocardial infarction Hyperlipidemia History of pulmonary embolism Type 2 diabetes mellitus, uncontrolled (Hgb A1c 11.9%) History of CVA and TIAs Tobacco use Obese Medical noncompliance Plan discussed with: Patient My Orders Orders - AURE ZAMORANO MD Procedure Category Date Status Time Consistent DIET 05/04/25 Transmitted Carb([facility])Diabetes Lunch Date of Service: May 05, 2025 Billing Provider: AURE ZAMORANO MD Common Visit Codes: [id number] INP/OBS CARE(HIGH) AURE ZAMORANO MD May 05, 2025 11:28
--- NOTE | 2025-05-05 12:14 | DVHPN2 ---
Consult Progress Note Date Seen: May 05, 2025 Subjective Review of Systems: CVS:Normal, RESPIRATORY:Normal, NEURO:Normal Other Systems: Denies any active chest pain, able to ambulate Objective vital signs Vital Sign Date Time Temp Pulse Resp B/P (MAP) Pulse Ox O2 Delivery O2 Flow Rate FiO2 05/05/25 10:28 88 19 132/98 05/05/25 09:30 97.6 99 97.6 05/05/25 07:55 Room Air* 0 21 Total Intake and Output 05/04/25 05/04/25 05/05/25 14:59 22:59 06:59 Intake Total 2140 ml 1033 ml Balance 2140 ml 1033 ml medications Current Medications Medications Dose Ordered Sig/Carey Route Start Time Stop Time Status Last Admin Dose Admin Fluoxetine HCl 40 mg DAILY PO 05/03/25 10:00 Aspirin 81 mg DAILY PO 05/03/25 10:00 05/05/25 08:46 81 MG Metoprolol Tartrate 25 mg BID PO 05/02/25 22:00 05/03/25 21:47 25 MG Gabapentin 300 mg TID PO 05/02/25 22:00 05/05/25 05:09 300 MG Diagnostic Test (Pha) 1 strip IQ4HR 05/03/25 00:00 05/05/25 08:37 1 STRIP Insulin Human Regular IQ4HR SC 05/03/25 00:00 05/05/25 08:50 16 UNITS Dextrose 50 ml UD PRN IV 05/02/25 20:45 Sodium Chloride 1,000 ml @ 60 mls/hr [id number] IV 05/02/25 20:45 05/04/25 13:38 60 MLS/HR Acetaminophen/ Hydrocodone Bitart 1 tab Q4HP PRN PO 05/02/25 20:45 05/05/25 08:46 1 TAB Ondansetron HCl 4 mg Q4HP PRN IV 05/02/25 20:45 Docusate Sodium 100 mg BIDPRN PRN PO 05/02/25 20:45 Acetaminophen 650 mg Q6HP PRN PO 05/02/25 20:45 Morphine Sulfate 2 mg Q4HPRN PRN IV 05/02/25 20:45 05/05/25 10:28 2 MG Nitroglycerin 0.4 mg Q5MINP PRN SL 05/02/25 22:00 Morphine Sulfate 2 mg Q30M PRN IV 05/02/25 22:00 Hydralazine HCl 10 mg Q6HP PRN IV 05/03/25 15:00 05/05/25 05:11 10 MG Ticagrelor 90 mg BID PO 05/04/25 10:00 05/05/25 08:46 90 MG Atorvastatin Calcium 40 mg HS PO 05/03/25 22:00 05/03/25 21:44 40 MG Ranolazine 500 mg BID PO 05/03/25 22:00 Nifedipine 30 mg DAILY PO 05/04/25 10:00 Examination: LUNGS:Normal, CVS:Normal, NEURO:Normal laboratory and microbiology Laboratory Tests 05/05/25 05:30 Test 05/05/25 05:30 Range/Units Serum Glucose 262 H 74-106 mg/dL Problem List/Assessment/Plan Problem List/Assessment/Plan Chest pain, rule out progressive coronary artery disease Severe coronary artery disease status post quadruple vessel CABG Multiple PTCAs x 3 TRACEY (on Brilinta and aspirin) Type 2 diabetes mellitus, uncontrolled (Hgb A1c 11.9%) Hypertensive urgency Hyperlipidemia History of pulmonary embolism History of CVA/TIAs Chronic pain syndrome with possible narcotic dependance Medical noncompliance Tobacco use Obesity Plan/Recommendation (Dr. Huff) * Transthoracic echocardiogram revealed LVEF 50% with normal RV function * Cardiolite stress test deemed to be positive with lateral wall ischemia * Dual-antiplatelet therapy and lipid-lowering agent * Close Cardiac surveillance; notify cardiology team immediately for any ECG changes * Continue chest pain protocol Scheduled for cardiac catheterization and coronary angiogram with Dr. Huff for Sunday05/06/25. Thank you for allowing us to care for this patient. Please call with any questions or concerns. Critical care time spent: 44 minutes This medical document was created using an electronic medical record system with voice recognition software and computerized dictation system. Although this document has been carefully reviewed, there might still be some phonetic and typographical errors. Occasional wrong-word or ``sound-alike substitutions may have occurred due to the inherent limitations of voice recognition software. These areas are purely typographical due to imperfections of the software programs and do not reflect any compromise in the patient's medical care. Please read the chart carefully and recognize, using context, where these substitutions have occurred. Plan discussed with: Patient, Other Dietary Evaluation Review Recommendations by RD: Dietary education by RD Comments: 1) Initiate MVI @ 1 tb qd 2) Initiate vitamin C @ 500 mg bid and zinc sulfate @ 220 mg qd for 7 days 3) Add cardiac restriction to 60g CCHO diet 4) Refer to outpatient RD/CDCES for diabetes education 5) Follow-up with cardiology and podiatry 6) Continue to monitor I&O, labs, and skin integrity Expected Outcomes/Goals: 1) appetite and labs to improve 2) wound to improve 3) gradual wt loss 4) f/u in 3-5 days Date of Service: May 05, 2025 Billing Provider: ZACHERY GRIMALDO Cardiology Common Codes: [id number] HOSP CARE(High ZACHERY GRIMALDO May 05, 2025 12:14
[2025-05-05] MEDS: InsuLIN REG 1unit/0.01ml Soln (100units/ml) ONE (12:25)
[2025-05-05] MEDS: MORPHINE SULFATE INJ 2 MG/ml SYRG ONE (12:25)
[2025-05-05] MEDS: ATORVASTATIN 20 MG TAB ONE (12:25)
[2025-05-06] VITALS (11 sets, daily range): BP systolic 110–169; BP diastolic 69–104; PULSE 71–80; RESP 14–20; TEMP 97.7–98.1; O2SAT 95–98
[2025-05-06 07:52] LABS: INR 1.07 (0.9-1.15); Partial Thromboplastin Time 26.8 SEC (24.5-34.5); Prothrombin Time 11.3 sec (9.3-11.8)
[2025-05-06 07:56] LABS: Alanine Aminotransferase 33 U/L (7-40); Albumin 4.0 g/dL (3.2-4.8); Alkaline Phosphatase 111 U/L (46-116); Anion Gap 11 (5-15); BUN/Creatinine Ratio 13.4 (10.0-20.0); Calcium 8.9 mg/dL (8.7-10.4); Carbon Dioxide 25 mmol/L (20-31); Chloride 103 mmol/L (98-107); Potassium 3.9 mmol/L (3.5-5.1); Sodium 139 mmol/L (136-145); Total Protein 7.2 g/dL (5.7-8.2)
[2025-05-06 07:57] LABS: Bilirubin, Total 1.0 mg/dL (0.2-1.0)
[2025-05-06 07:59] LABS: Blood Urea Nitrogen 9 mg/dL (9-23); Glucose 224 mg/dL (74-106)
[2025-05-06 08:04] LABS: Hematocrit 44.4 % (41.0-53.0); Hemoglobin 15.2 g/dL (13.5-17.5); Mean Corpuscular Hemoglobin 28.6 pg (28.0-32.0); Mean Corpuscular Volume 83.7 fL (80.0-100.0); Nucleated Red Blood Cells % 0.1 %
[2025-05-06] MEDS: IOHEXOL 350 MG/ML 100ML IJ ONE (09:53)
[2025-05-06] MEDS: NEOMYCIN-BACITRACIN-POLYM 15GM TOP OINT TOP SCH (10:00)
[2025-05-06] MEDS: IODIXANOL 320MG/ML 100ML BTL IV ONE (10:09)
[2025-05-06] MEDS: MORPHINE SULFATE INJ 2 MG/ml SYRG ONE (10:18)
[2025-05-06] MEDS: MORPHINE SULFATE INJ 2 MG/ml SYRG IV PRN (10:19)
[2025-05-06] MEDS: ANGIOMAX 250 MG VIAL IV ONE (10:27)
[2025-05-06] MEDS: HEPARIN SODIUM (PORCINE) 5000 UNITS/ML 1ML VIAL ONE (10:27)
[2025-05-06] MEDS: LIDOCAINE 2%HCL (LOCAL ANESTH.) INJ 20ML MDV ONE (10:28)
[2025-05-06] MEDS: MIDAZOLAM HCL 2MG/2ML 2ml VIAL (1mg/ml) ONE (10:28)
[2025-05-06] MEDS: SODIUM CHL 0.9% 0 ML ONE (10:28)
[2025-05-06] MEDS: fentaNYL CITRATE 100 MCG/2 ML VL ONE (10:28)
[2025-05-06] MEDS: VERAPAMIL 2.5MG/ML INJ 2ML VIAL IV ONE (10:28)
--- NOTE | 2025-05-06 11:38 | DVHPN2 ---
Reviewed: Care Plan, H&P, Labs, Medications, Previous Orders, Radiology Changes from previous H/P or p: No Changes Eyes: No Pain, No Vision change, No Conjunctivae inflammation, No Eyelid inflammation, No Other, No Redness ENT: No Ear pain, No Ear discharge, No Nose pain, No Nose discharge, No Nose congestion, No Mouth pain, No Mouth swelling, No Throat pain, No Throat swelling, No Other Cardiovascular: Chest Pain; No Palpitations, No Orthopnea, No Paroxysmal Noc. Dyspnea, No Edema, No Lt Headedness, No Other Respiratory: No Cough, No Dry, No Shortness of breath, No SOB with excertion, No Wheezing, No Hemoptysis, No Pleuritic Pain, No Sputum, No Other Gastrointestinal: No Nausea, No Vomiting; Abdominal Pain; No Diarrhea, No Constipation, No Melena, No Hematochezia, No Other Genitourinary: No Dysuria, No Frequency, No Incontinence, No Hematuria, No Retention, No Other Musculoskeletal: other (Left toes amputation); No neck pain, No shoulder pain, No arm pain, No back pain, No hand pain, No leg pain, No foot pain Skin: No Rash, No Lesions, No Jaundice, No Bruising, No Other Objective Vitals Vital Signs Date Time Temp Pulse Resp B/P (MAP) Pulse Ox O2 Delivery O2 Flow Rate FiO2 05/06/25 10:19 72 17 172/95 05/06/25 09:00 97.8 98 97.8 05/05/25 20:00 Room Air* 0 21 Intake/Output Intake and Output 05/06/25 07:00 Intake Total 3500 ml Balance 3500 ml Intake Oral 3500 ml # Voids 9 # Bowel Movements 3 Medications Current Medications Medications Dose Ordered Sig/Carey Route Start Time Stop Time Status Last Admin Dose Admin Fluoxetine HCl 40 mg DAILY PO 05/03/25 10:00 Aspirin 81 mg DAILY PO 05/03/25 10:00 05/05/25 08:46 81 MG Metoprolol Tartrate 25 mg BID PO 05/02/25 22:00 05/03/25 21:47 25 MG Gabapentin 300 mg TID PO 05/02/25 22:00 05/05/25 22:42 300 MG Diagnostic Test (Pha) 1 strip IQ4HR 05/03/25 00:00 05/06/25 04:06 1 STRIP Insulin Human Regular IQ4HR SC 05/03/25 00:00 05/06/25 04:10 8 UNITS Dextrose 50 ml UD PRN IV 05/02/25 20:45 Sodium Chloride 1,000 ml @ 60 mls/hr [id number] IV 05/02/25 20:45 05/04/25 13:38 60 MLS/HR Acetaminophen/ Hydrocodone Bitart 1 tab Q4HP PRN PO 05/02/25 20:45 05/05/25 16:58 1 TAB Ondansetron HCl 4 mg Q4HP PRN IV 05/02/25 20:45 Docusate Sodium 100 mg BIDPRN PRN PO 05/02/25 20:45 Acetaminophen 650 mg Q6HP PRN PO 05/02/25 20:45 Morphine Sulfate 2 mg Q4HPRN PRN IV 05/02/25 20:45 05/06/25 04:04 2 MG Nitroglycerin 0.4 mg Q5MINP PRN SL 05/02/25 22:00 Morphine Sulfate 2 mg Q30M PRN IV 05/02/25 22:00 05/06/25 10:19 2 MG Hydralazine HCl 10 mg Q6HP PRN IV 05/03/25 15:00 05/05/25 05:11 10 MG Ticagrelor 90 mg BID PO 05/04/25 10:00 05/05/25 22:42 90 MG Atorvastatin Calcium 40 mg HS PO 05/03/25 22:00 05/03/25 21:44 40 MG Ranolazine 500 mg BID PO 05/03/25 22:00 Nifedipine 30 mg DAILY PO 05/04/25 10:00 Neomycin/ Polymyxin/ Bacitracin 1 applic DAILY TOP 05/06/25 10:00 Laboratory Results Laboratory Tests 05/06/25 06:58 Chemistry Test 05/06/25 06:58 Albumin 4.0 g/dL (3.2-4.8) Calcium Level 8.9 mg/dL (8.7-10.4) Total Protein 7.2 g/dL (5.7-8.2) Coagulation Test 05/06/25 06:58 Prothrombin Time 11.3 sec (9.3-11.8) Prothrombin Time INR 1.07 (0.9-1.15) Activated Partial Thromboplast Time 26.8 SEC (24.5-34.5) LFT Test 05/06/25 06:58 Alanine Aminotransferase (ALT) 33 U/L (7-40) Alkaline Phosphatase 111 U/L (46-116) Aspartate Amino Transferase (AST) 24 U/L (13-40) Total Bilirubin 1.0 mg/dL (0.2-1.0) Urinalysis Test 05/02/25 14:32 Urine Color Light-yellow (Yellow) Urine Clarity Clear (Clear) Urine pH 5.5 (5.0-9.0) Urine Specific [place] 1.041 (1.001-1.035) Urine Protein Negative (Negative) Urine Ketones Negative (Negative) Urine Blood Negative /uL (Negative) Urine Nitrite Negative (Negative) Urine Bilirubin Negative (Negative) Urine Urobilinogen Normal mg/dL (Negative) Urine Leukocyte Esterase Negative /uL (Negative) Urine RBC 2 /hpf (0 - 3) Urine Microscopic WBC 11 /HPF (0-3) H Urine Squamous Epithelial Cells None seen /hpf (<5) Urine Bacteria None seen /hpf (None Seen) Urine Glucose 4+ mg/dL (Normal) H Labs and/or images reviewed: Labs reviewed by me, Image(s) reviewed by me Assessment/Plan Assessment/Plan Chest pain, rule out progressive coronary artery disease , cardiology consult appreciated, stress test shows lateral ischemia, scheduled for left heart catheterization by Dr. Huff on 05/06/2025 Severe coronary artery disease status post quadruple vessel CABG Multiple PTCAs x 3 TRACEY (on Brilinta and aspirin) Hypertensive urgency History myocardial infarction Hyperlipidemia History of pulmonary embolism Type 2 diabetes mellitus, uncontrolled (Hgb A1c 11.9%) History of CVA and TIAs Tobacco use Obese Medical noncompliance Plan discussed with: Patient My Orders Orders - AURE ZAMORANO MD Procedure Category Date Status Time Cleanse Wound With ADOLFO 05/05/25 In Process Wound Clean 10:55 Udrakums-Hswusqcclu-Rojjimhja PHA 05/06/25 In Process (Neosporin 10:00 Date of Service: May 06, 2025 Billing Provider: AURE ZAMORANO MD Common Visit Codes: [id number] INP/OBS CARE(HIGH) AURE ZAMORANO MD May 06, 2025 11:38
--- NOTE | 2025-05-06 13:11 | DVHOP2 ---
Operative Report - 2 Report Details Date: 05/06/25 Preop Diagnosis: CAD Postop Diagnosis: CAD Surgeon: Zan Huff MD Anesthesiologist: Conscious sedation Anesthesia: Mac, Local Consent: The patient was informed of the risks and benefits of the procedure. These include but are not limited to complications of anesthesia, postoperative infection, incomplete relief of symptoms, recurrence of symptoms, damage to blood vessels, nerves and tendons, deep venous thrombosis, pulmonary embolism and possible need for repeat surgery in the future. Complications: No complications Findings: CAD Indications for Surgery: Chest pain Name of Procedure Performed Left heart catheterization bilateral cine coronary angiography. Left ventriculography. Visualization of saphenous venous grafts and left internal mammary artery. Fractional flow reserve evaluation with a catheterization works program. Procedure Details Procedure Details: Prior local anesthesia with 2% lidocaine to the right groin and full informed consent obtained the patient was prepped and draped in usual fashion followed by placement of a six [place] sheath into the femoral artery through which six [place]au[place] Denisse catheters were used to cannulate both right and left coronary ostia and a pigtail was used for ventriculography. A right coronary catheter was also used to cannulate the internal mammary artery via the left subclavian. No complications Fractional flow reserve evaluation was performed as noted above. Hemodynamics: Aortic blood pressure was 110/70 end-diastolic pressure was 16 without gradient across the aortic valve on pullback. Coronary anatomy: RCA is a large vessel it has mild plaquing in its proximal and mid section. There is a distal 40-50% stenosis. The distal bifurcation into the posterolateral branch has an angiographic appearance of about an 80% stenosis. Catheterization works program reveals an fractional flow reserve of 0.82 indicative of [id number] stenosis without a critical lesion present. Left main is large. Left anterior descending is occluded. Left main is otherwise normal. The circumflex is large vessel two obtuse marginal branches free of significant disease. The left internal mammary artery is anastomosed to the mid LAD. There was excellent antegrade flow. The LAD itself is a smaller vessel with notably disease segments in the anterior apical segment there is about a 70-80% stenosis however this vessel is small and not amenable to angioplasty. Ventriculography in the CRUZ projection shows an EF of 55 %. Impression: Normal left ventricular end-diastolic pressure at rest with normal ejection fraction. Three-vessel coronary artery disease as noted above with the an occluded graft of the diagonal. Patent LAD. Patent circumflex. Recommendations: Continue medical therapy with risk factor modification. Condition Good Disposition Still a Patient Date of Service: May 06, 2025 Billing Provider: ZAN HUFF Sr., MD Cardiology Common Codes: [id number] INP/OBS CARE (High) Cardiology Procedure Codes: [id number] ADD COR ART/BRNCH/GRFT, 82814-WFRB HEART CATH W/INTRA INJ ZAN HUFF Sr., MD May 06, 2025 13:11
[2025-05-06] MEDS ORDERED: HYDROcodone-ACET 10/325MG TAB PO PRN (17:15)
--- NOTE | 2025-05-07 08:32 | DVHDS2 ---
Discharge Summary Date of Admission May 02, 2025 at 21:49 Date of Discharge: May 06, 2025 Admitting Diagnosis Chest pain Wounds: Left heart catheterization Labs/Diagnostic Data: Laboratory Results Test 05/06/25 15:44 05/06/25 06:58 05/05/25 05:30 05/03/25 16:48 POC Glucose 198 mg/dl (70-106) White Blood Count 7.4 10^3/uL (4.4-10.8) Red Blood Count 5.30 10^6/uL (4.5-5.90) Hemoglobin 15.2 g/dL (13.5-17.5) Hematocrit 44.4 % (41.0-53.0) Mean Corpuscular Volume 83.7 fL (80.0-100.0) Mean Corpuscular Hemoglobin 28.6 pg (28.0-32.0) Mean Corpuscular Hemoglobin Concent 34.2 g/dL (32.0-36.0) Red Cell Distribution Width 14.8 % (11.8-14.3) Platelet Count 150 10^3/uL (140-450) Mean Platelet Volume 9.1 fL (6.9-10.8) Neutrophils (%) (Auto) 67.4 % (37.0-80.0) Lymphocytes (%) (Auto) 23.3 % (10.0-50.0) Monocytes (%) (Auto) 8.2 % (0.0-12.0) Eosinophils (%) (Auto) 0.8 % (0.0-7.0) Basophils (%) (Auto) 0.3 % (0.0-2.0) Neutrophils # (Auto) 5.0 10 ^3/uL (1.6-8.6) Lymphocytes # (Auto) 1.7 10 ^3/uL (0.4-5.4) Monocytes # (Auto) 0.6 10 ^3/uL (0-1.3) Eosinophils # (Auto) 0.1 10 ^3/uL (0-0.8) Basophils # (Auto) 0 10 ^3/uL (0-0.2) Nucleated Red Blood Cells 0.1 % Prothrombin Time 11.3 sec (9.3-11.8) Prothrombin Time INR 1.07 (0.9-1.15) Activated Partial Thromboplast Time 26.8 SEC (24.5-34.5) Sodium Level 139 mmol/L (136-145) Potassium Level 3.9 mmol/L (3.5-5.1) Chloride Level 103 mmol/L (98-107) Carbon Dioxide Level 25 mmol/L (20-31) Anion Gap 11 (5-15) Blood Urea Nitrogen 9 mg/dL (9-23) Creatinine 0.67 mg/dL (0.700-1.30) Glomerular Filtration Rate Calc 114 mL/min (>90) BUN/Creatinine Ratio 13.4 (10.0-20.0) Serum Glucose 224 mg/dL (74-106) Calcium Level 8.9 mg/dL (8.7-10.4) Total Bilirubin 1.0 mg/dL (0.2-1.0) Aspartate Amino Transferase (AST) 24 U/L (13-40) Alanine Aminotransferase (ALT) 33 U/L (7-40) Alkaline Phosphatase 111 U/L (46-116) Total Protein 7.2 g/dL (5.7-8.2) Albumin 4.0 g/dL (3.2-4.8) Magnesium Level 2.0 mg/dL (1.6-2.6) B-Type Natriuretic Peptide 12.47 pg/mL (0-100) Urine Opiates Screen Pos (NEGATIVE) Urine Fentanyl Screen Neg (NEGATIVE) Urine Barbiturates Screen Neg (NEGATIVE) Urine Phencyclidine Screen Neg (NEGATIVE) Urine Amphetamines Screen Neg (NEGATIVE) Urine Benzodiazepines Screen Neg (NEGATIVE) Urine Cocaine Screen Neg (NEGATIVE) Urine Cannabinoids Screen Neg (NEGATIVE) Test 05/03/25 06:00 05/03/25 00:18 05/02/25 14:32 Hemoglobin A1c 11.9 % A1C (<5.7) Triglycerides Level 118 mg/dL (< 150) Cholesterol Level 148 mg/dL (< 200) LDL Cholesterol 108 mg/dL (< 100) HDL Cholesterol 36 mg/dL (40-59) Thyroid Stimulating Hormone (TSH) 1.20 uIU/mL (0.55-4.78) Troponin I High Sensitivity 3 ng/L (</=54) Urine Color Light-yellow (Yellow) Urine Clarity Clear (Clear) Urine pH 5.5 (5.0-9.0) Urine Specific [place] 1.041 (1.001-1.035) Urine Protein Negative (Negative) Urine Ketones Negative (Negative) Urine Blood Negative /uL (Negative) Urine Nitrite Negative (Negative) Urine Bilirubin Negative (Negative) Urine Urobilinogen Normal mg/dL (Negative) Urine Leukocyte Esterase Negative /uL (Negative) Urine RBC 2 /hpf (0 - 3) Urine Microscopic WBC 11 /HPF (0-3) Urine Squamous Epithelial Cells None seen /hpf (<5) Urine Bacteria None seen /hpf (None Seen) Urine Glucose 4+ mg/dL (Normal) Other Laboratory Tests 05/06/25 06:58 Brief Hx & Hospital Course: 50-year-old male with a history of hypertension AR hypercholesterolemia pulmonary embolism type 2 diabetes history of CVA chronic current smoker obese medication noncompliant with a history of severe coronary artery disease status post quadruple CABG multiple stents in the past on Brilinta and aspirin came in for chest pain. Stress test showed lateral ischemia underwent left heart catheterization by Dr. Huff. Patient has been noncompliant during the hospital course refusing medications. Patient came in for chest pain underwent left heart catheterization by Dr. Huff with the following findings Three-vessel coronary artery disease as noted above with the an occluded graft of the diagonal. Patent LAD. Patent circumflex. Advised strict risk management. The patient left AMA. Consequences and complications including possible explained to the patient and he verbalized understanding. Consults/Reason for consult Dr. Huff Operations or Procedures Left heart catheterization Condition at Discharge: Good Final Diagnosis/Problems List CAD Discharge Disposition: AMA Discharge Instruct/Medications Diet comment: Not applicable Patient left AMA Activity comment: Not applicable Patient left AMA Follow Up/Referral: Not applicable Patient left AMA Medications: Not applicable Patient left AMA Scheduled Aspirin (Aspirin Low Dose), 1 TAB PO DAILY, (Reported) Carvedilol (Coreg), 12.5 MG PO Q12HR Dextromethorphan Hbr-Quinidine (Nuedexta), 1 CAP PO BID, (Reported) Divalproex Sodium (Divalproex Sodium ), 1-2 TAB PO HS, (Reported) Fluoxetine Hcl (Fluoxetine Hcl), 1 CAP PO DAILY, (Reported) Gabapentin (Gabapentin), 2 CAP PO QAM, (Reported) Gabapentin (Gabapentin), 3 CAP PO @NOON, (Reported) Gabapentin (Gabapentin), 4 CAP PO QPM, (Reported) Insulin Glargine (Lantus Solostar), 30 UNIT SC TID, (Reported) Insulin Lispro (Insulin Lispro Kwikpen), 30-50 UNIT SC TIDAC, (Reported) Isosorbide Mononitrate (Isosorbide Mononitrate ER), 30 MG PO DAILY Lurasidone Hydrochloride (Lurasidone Hydrochloride), 1 TAB PO BID, (Reported) Ticagrelor Base (Brilinta), 1 TAB PO DAILY, (Reported) Zolpidem Tartrate (Zolpidem Tartrate), 1 TAB PO DAILY, (Reported) Scheduled PRN Hydrocodone-Acetaminophen (Hydrocodone Bitartrate/AC 10-325 mg), 1 TAB PO Q4-6HR PRN for PAIN, (Reported) Ondansetron HCl (Ondansetron Hydrochloride), 1 TAB PO TID PRN for NAUSEA / VOMITING, (Reported) Miscellaneous Medications Metoprolol Tartrate (Metoprolol Tartrate), 25 MG PO, (Reported) Discharge Statement: "Patient was advised to return to the ER or call 911 if any headaches, dizziness, shortness of breath, chest pain, abdominal pain, bleeding, fevers, or worsening of medical condition. Patient was counseled about treatment plan, medications, possible side effects, patientverbalized understanding. All questions were answered to the best of my ability. This discharge took greater then 30 minutes in planning, reviewing documentation, counseling the patient, and discussing with other team members." ASSESSMENT ASSESSMENT Hospital Course Improved Assessment CAD Date of Service: May 07, 2025 Billing Provider: AURE ZAMORANO MD Common Visit Codes: [id number]-HCS/OBS DISCH DAY >30min AURE ZAMORANO MD May 07, 2025 08:32
== END 2025-05-06 17:38 | disposition left against medical advice (07) | DRG 191 ==
LOC: EDBD 14:07 → EDUNIT# 14:07 → ER 14:07 → OVERFLOW 21:49 → TELE-WESTW 23:32
PROVIDERS: ADMIT Family Medicine; ATTEND Family Medicine
PROC: 4A023N7 Measurement of Cardiac Sampling and Pressure, Left Heart, Percutaneous Approach (ICD-10-PCS; principal; 2025-05-06)
PROC: B211YZZ Fluoroscopy of Multiple Coronary Arteries using Other Contrast (ICD-10-PCS; 2025-05-06)
PROC: B215YZZ Fluoroscopy of Left Heart using Other Contrast (ICD-10-PCS; 2025-05-06)
PROC: B218YZZ Fluoroscopy of Left Internal Mammary Bypass Graft using Other Contrast (ICD-10-PCS; 2025-05-06)
PROC: B310YZZ Fluoroscopy of Thoracic Aorta using Other Contrast (ICD-10-PCS; 2025-05-06)
PROC: B21FYZZ Fluoroscopy of Other Bypass Graft using Other Contrast (ICD-10-PCS; 2025-05-06)
PROC: 4A033BC Measurement of Arterial Pressure, Coronary, Percutaneous Approach (ICD-10-PCS; 2025-05-06)
DX: I25.10 Atherosclerotic heart disease of native coronary artery without angina pectoris (principal); I16.0 Hypertensive urgency; E11.22 Type 2 diabetes mellitus with diabetic chronic kidney disease; E11.65 Type 2 diabetes mellitus with hyperglycemia; N18.9 Chronic kidney disease, unspecified; E66.9 Obesity, unspecified; I12.9 Hypertensive chronic kidney disease with stage 1 through stage 4 chronic kidney disease, or unspecified chronic kidney disease; F17.210 Nicotine dependence, cigarettes, uncomplicated; E78.00 Pure hypercholesterolemia, unspecified; L08.9 Local infection of the skin and subcutaneous tissue, unspecified; G89.4 Chronic pain syndrome; Z53.29 Procedure and treatment not carried out because of patient's decision for other reasons; I25.2 Old myocardial infarction; Z86.73 Personal history of transient ischemic attack (TIA), and cerebral infarction without residual deficits; Z95.1 Presence of aortocoronary bypass graft; Z86.711 Personal history of pulmonary embolism; Z82.49 Family history of ischemic heart disease and other diseases of the circulatory system; Z83.3 Family history of diabetes mellitus; Z89.422 Acquired absence of other left toe(s); Z91.148 Patient's other noncompliance with medication regimen for other reason; Z79.891 Long term (current) use of opiate analgesic; Z68.37 Body mass index [BMI] 37.0-37.9, adult; Z79.4 Long term (current) use of insulin; Z79.82 Long term (current) use of aspirin; Z79.899 Other long term (current) drug therapy
CPT/HCPCS: 36415; 78452; 80053; 80061; 80307; 81001; 82962; 83036; 83735; 83880; 84443; 84484; 85025; 85610; 85730; 93005; 93017; 93306; 93459; 93567; 93571; 96365; 96375; 99152; G0378; J1815; J2250; J2405; Q9967